=== PATIENT | female | born 1950 | race Caucasian/White ===

== ENCOUNTER → 2016-05-29 | Outpatient (REF) | payer MEDICARE, MEDICAID ==
[~2016-05-29] MED LIST: /ADVA50050 INH; /ESOM40CA PO; /PARO37TCR PO; /SUCR1TA OR; ACTI300C OR; ALBU83IN IN; ALBUTEROL INHALER INH; AMIT25TA PO; AMIT50TA2 PO; BUSP15TA PO; LASI20TA PO; LASI40TA PO; LORA1TAB PO; METF850T PO; METO10TA2 OR; QUESTRAN PO; RAMI25CA PO; RAMI5CA PO; SING10TA31 PO; TRAM50TA2 PO; [UNRECOGNIZED DRUG - CODE] PO
== END ==
LOC: M SMT 17:21
PROVIDERS: ATTEND Nurse Practitioner Family
DX: N39.41 Urge incontinence (principal)
CPT/HCPCS: 51798; 81001; 87086; G0463

== ENCOUNTER 2016-09-17 22:03 | Emergency (ER) | payer MEDICARE, MEDICAID ==
[~2016-09-17] VITALS: Ht 162.6 cm; Wt 113.4 kg
[2016-09-17] MEDS ORDERED: BISO10TA6 PO (22:21)
[2016-09-17] MEDS ORDERED: AMIT50TA PO (22:21)
[2016-09-17] MEDS ORDERED: ALL10TAB27 PO (22:21)
[2016-09-17] MEDS ORDERED: ASPI81TA85 PO (22:21)
[2016-09-17] MEDS ORDERED: RANI1TAB6 PO (22:21)
[2016-09-17] MEDS ORDERED: KETOROLAC 30 MG/ML VIAL (J1885) IV ONE (23:30)
[2016-09-17 23:38] LABS: BASO % 0.4 % (0.0-1.0); EOS # 0.1 K/mm3 (0.0-0.50); EOS % 1.6 % (0.0-3.0); LARGE UNSTAINED CELL # 0.1 K/mm3 (0.0-0.4); LARGE UNSTAINED CELL % 1.3 % (0.0-4.0); LYMPH # 1.7 K/mm3 (1.5-4.5); LYMPH % 18.9 % (24.0-44.0); MEAN CORPUSCULAR HEMOGLOBIN 28.9 pg (27.0-33.0); MEAN CORPUSCULAR HGB CONC 32.5 g/dl (32.0-36.5); MONO # 0.3 K/mm3 (0.0-0.8); MONO % 3.9 % (0.0-5.0); NEUTROPHILS # 6.4 K/mm3 (1.8-7.7); NEUTROPHILS % 73.9 % (36.0-66.0); PLATELET COUNT, AUTOMATED 264 k/mm3 (150-450); RED CELL DISTRIBUTION WIDTH 13.7 % (11.5-14.5); WHITE BLOOD COUNT 8.6 K/mm3 (4.0-10.0)
[2016-09-17 23:43] VITALS: BP 135/91
[2016-09-17 23:44] LABS: ANION GAP 8 MEQ/L (8-16); BLOOD UREA NITROGEN 15 MG/DL (7-18); CALCIUM LEVEL 8.6 MG/DL (8.8-10.2); CARBON DIOXIDE LEVEL 29 MEQ/L (21-32); CHLORIDE LEVEL 104 MEQ/L (98-107); CREATININE FOR GFR 0.94 MG/DL (0.55-1.02); GLOMERULAR FILTRATION RATE > 60.0 (>45); GLUCOSE, FASTING 117 MG/DL (80-110); POTASSIUM SERUM 4.2 MEQ/L (3.5-5.1); SODIUM LEVEL 141 MEQ/L (136-145)
[2016-09-18] MEDS ORDERED: ISOVUE-370 76% 100ML VIAL (Q9967) As Ordered ONE (01:27)
[2016-09-18] MEDS ORDERED: MORPHINE 4 MG/ML 1ML SYRINGE IV ONE (01:30)
--- NOTE | 2016-09-18 02:50 | REPUSA ---
CLINICAL HISTORY: Dyspnea, exclude PE. TECHNIQUE: Multiple incremental axial, coronal and oblique images are obtained from the thoracic inle t to the upper abdomen. Intravenous contrast material was administered as per pulmonary embolism prot ocol. COMMENTS: Comparison is made to the prior exam on 09/19/2015. There is excellent opacification of pulmonary arterial system without evidence for pulmonary embolism . Aorta is of normal caliber without evidence for dissection or aneurysm. There is no evidence of pleural or parenchymal mass. Unchanged bilateral basilar atelectatic pulmonar y bands. There are no pleural effusions. There is no evidence of hilar or mediastinal lymphadenopathy . The heart remains mildly enlarged. Images of the upper abdomen demonstrate no evidence of adrenal mass. The bony structures are free of lytic or blastic lesions. Multilevel degenerative changes are seen in volving the visualized thoracolumbar spine. Scattered calcifications are seen involving the aorta and major branches compatible with atherosclero sis. Remote granulomatous disease. IMPRESSION: No evidence for pulmonary embolism. Cardiomegaly. Remote granulomatous disease. Thank you for your kind referral of this patient.
[2016-09-18] MEDS ORDERED: PERC5TAB6 PO (03:51)
[2016-09-18] MEDS ORDERED: PERCOCET 5MG/325MG TAB PO ONE (04:15)
--- NOTE | 2016-09-18 06:06 | ECGEPIP ---
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
--- NOTE | 2016-09-18 10:13 | REP ---
CHEST, SINGLE VIEW: There is no evidence of acute infiltrate. No pleural effusion is seen. The heart is normal in size. The mediastinal silhouette is unremarkable. The visualized osseous structures are intact. IMPRESSION: No acute pulmonary disease. Signed by Syed Driscoll MD 09/18/2016 04:06 P
== END 2016-09-18 04:26 | disposition home or self-care (01) ==
LOC: M ED 23:58
DX: R07.89 Other chest pain (principal)
CPT/HCPCS: 71020; 71275; 80048; 82550; 82553; 84484; 85025; 85379; 93005; 93041; 94760; 96374; 96375; 99285; J1885; Q9967

== ENCOUNTER 2017-01-13 14:59 | Emergency (ER) | payer MEDICARE, MEDICAID ==
[~2017-01-13] VITALS: Ht 162.6 cm; Wt 114.5 kg
[~2017-01-13 14:59] MED LIST changes: +ALL10TAB27 PO; +AMIT50TA PO; +ASPI81TA85 PO; +BISO10TA6 PO; -METF850T PO; +METF850T4 PO; +PERC5TAB12 PO; +RANI1TAB6 PO
[2017-01-13] MEDS ORDERED: NS 1,000 ML IV ONE (16:45)
[2017-01-13 17:51] VITALS: BP 124/62
[2017-01-13] MEDS ORDERED: CIPR-249 PO (18:05)
== END 2017-01-13 18:22 | disposition home or self-care (01) ==
LOC: M ED 14:59
DX: N39.0 Urinary tract infection, site not specified (principal)

== ENCOUNTER → 2017-03-11 | Outpatient (REF) | payer MEDICARE, MEDICAID ==
[~2017-03-11] MED LIST changes: +CIPR-249 PO
== END ==
LOC: M SMT 16:54
PROVIDERS: ATTEND Nurse Practitioner Women's Health
DX: R35.0 Frequency of micturition (principal)

== ENCOUNTER → 2017-04-08 | Outpatient (CLI) | payer MEDICARE, MEDICAID ==
[2017-04-08 15:34] LABS: BASO # 0.1 10^3/uL (0.0-0.2); BASO % 0.6 % (0.0-1.0); EOS # 0.2 10^3/uL (0.0-0.50); EOS % 2.3 % (0.0-3.0); IMMATURE GRANULOCYTE % 0.2 % (0-0); LYMPH # 1.9 10^3/uL (1.5-4.5); LYMPH % 22.4 % (24.0-44.0); MEAN CORPUSCULAR HEMOGLOBIN 29.1 pg (27.0-33.0); MEAN CORPUSCULAR HGB CONC 32.2 g/dl (32.0-36.5); MEAN CORPUSCULAR VOLUME 90.2 fl (80.0-96.0); MONO # 0.6 10^3/uL (0.0-0.8); MONO % 7.5 % (0.0-5.0); NEUTROPHILS # 5.7 10^3/uL (1.8-7.7); PLATELET COUNT, AUTOMATED 278 10^3/uL (150-450); RED CELL DISTRIBUTION WIDTH 13.6 % (11.5-14.5); WHITE BLOOD COUNT 8.6 10^3/uL (4.0-10.0)
[2017-04-08 15:45] LABS: CALCIUM LEVEL 9.2 MG/DL (8.8-10.2); CREATININE FOR GFR 0.99 MG/DL (0.55-1.02); GLOMERULAR FILTRATION RATE 59.4 (>45); POTASSIUM SERUM 4.8 MEQ/L (3.5-5.1)
== END ==
LOC: M SMT 11:54
PROVIDERS: ATTEND Internal Medicine Cardiovascular Disease
DX: R00.2 Palpitations (principal); R07.9 Chest pain, unspecified; I42.0 Dilated cardiomyopathy

== ENCOUNTER → 2017-05-31 | Outpatient (CLI) | payer MEDICARE, MEDICAID | LOC: M WHC 09:53 | DX: N63.11 Unspecified lump in the right breast, upper outer quadrant (principal) | CPT/HCPCS: 77067 ==

== ENCOUNTER → 2017-06-27 | Outpatient (CLI) | payer MEDICARE, MEDICAID | LOC: M RAD 10:07 | DX: R92.8 Other abnormal and inconclusive findings on diagnostic imaging of breast (principal) | CPT/HCPCS: 77065 ==

== ENCOUNTER → 2017-07-19 | Outpatient (CLI) | payer MEDICARE, MEDICAID ==
[~2017-07-19] MED LIST changes: -/ADVA50050 INH; -/ESOM40CA PO; -/PARO37TCR PO; -/SUCR1TA OR; -ACTI300C OR; -ALBU83IN IN; -ALBUTEROL INHALER INH; -ALL10TAB27 PO; -AMIT25TA PO; -AMIT50TA PO; -AMIT50TA2 PO; -ASPI81TA85 PO; -BISO10TA6 PO; -BUSP15TA PO; -CIPR-249 PO; -LASI20TA PO; -LASI40TA PO; +LIDOCAINE 1% MDV 20ML VIAL As Ordered; -LORA1TAB PO; -METF850T4 PO; -METO10TA2 OR; -PERC5TAB12 PO; -QUESTRAN PO; -RAMI25CA PO; -RAMI5CA PO; -RANI1TAB6 PO; -SING10TA31 PO; -TRAM50TA2 PO; -[UNRECOGNIZED DRUG - CODE] PO
== END ==
LOC: M RADPRO 12:44
DX: N63.10 Unspecified lump in the right breast, unspecified quadrant (principal); N60.11 Diffuse cystic mastopathy of right breast; R92.1 Mammographic calcification found on diagnostic imaging of breast; Z79.82 Long term (current) use of aspirin; Z79.899 Other long term (current) drug therapy
CPT/HCPCS: 19083

== ENCOUNTER → 2017-07-29 | Outpatient (CLI) | payer MEDICARE, MEDICAID | LOC: M RAD 10:29 | DX: J32.0 Chronic maxillary sinusitis (principal) | CPT/HCPCS: 70486 ==

== ENCOUNTER 2018-06-14 14:23 | Emergency (ER) | payer MEDICARE, MEDICAID ==
[~2018-06-14] VITALS: Ht 162.6 cm; Wt 114.5 kg
[~2018-06-14 14:23] MED LIST changes: +/ADVA50050 INH; +/ESOM40CA PO; +/PARO37TCR PO; +/SUCR1TA OR; +ACTI300C OR; +ALBU83IN IN; +ALBUTEROL INHALER INH; +ALL10TAB28 PO; +AMIT25TA PO; +AMIT50TA PO; +AMIT50TA2 PO; +ASPI81TA85 PO; +BISO10TA6 PO; +BUSP15TA PO; +CIPR-249 PO; +LASI20TA PO; +LASI40TA PO; -LIDOCAINE 1% MDV 20ML VIAL As Ordered; +LORA1TAB PO; +METF850T4 PO; +METO10TA2 OR; +PERC5TAB12 PO; +QUESTRAN PO; +RAMI1CAP24 PO; +RAMI25CA PO; +RANI1TAB6 PO; +SING10TA31 PO; +TRAM50TA2 PO; +[UNRECOGNIZED DRUG - CODE] PO
[2018-06-14] MEDS ORDERED: VENTAER PO (14:43)
[2018-06-14] MEDS ORDERED: BUSP15TA47 PO (14:43)
[2018-06-14] MEDS ORDERED: LEVO88TA3 PO (14:43)
[2018-06-14 15:10] LABS: BASO % 0.5 % (0.0-1.0); EOS # 0.1 10^3/uL (0.0-0.50); EOS % 0.8 % (0.0-3.0); HEMATOCRIT 36.2 % (36.0-47.0); HEMOGLOBIN 12.2 g/dl (12.0-15.5); LYMPH # 1.4 10^3/uL (1.5-4.5); LYMPH % 16.2 % (24.0-44.0); MEAN CORPUSCULAR HEMOGLOBIN 29.9 pg (27.0-33.0); MEAN CORPUSCULAR HGB CONC 33.7 g/dl (32.0-36.5); MEAN CORPUSCULAR VOLUME 88.7 fl (80.0-96.0); MONO # 0.6 10^3/uL (0.0-0.8); NEUTROPHILS # 6.4 10^3/uL (1.8-7.7); NEUTROPHILS % 75.1 % (36.0-66.0); PLATELET COUNT, AUTOMATED 258 10^3/uL (150-450); RED BLOOD COUNT 4.08 10^6/uL (4.00-5.40); WHITE BLOOD COUNT 8.6 10^3/uL (4.0-10.0)
--- NOTE | 2018-06-14 15:25 | REP ---
Clinical: Acute chest pain . Comparison: 09/17/2016 . Technique: PA and lateral. Findings: The mediastinum and cardiac silhouette are normal. The lung durán are clear and without acute consolidation, effusion, or pneumothorax. The skeletal structures are intact and normal. Impression: 1. No acute cardiopulmonary process. Electronically Signed by Arben Renee MD 06/14/2018 03:17 P
[2018-06-14 15:28] LABS: ALBUMIN 3.7 GM/DL (3.2-5.2); ALT/SGPT 18 U/L (12-78); BILIRUBIN,DIRECT 0.2 MG/DL (0.0-0.2); BILIRUBIN,TOTAL 0.6 MG/DL (0.2-1.0); BLOOD UREA NITROGEN 16 MG/DL (7-18); CALCIUM LEVEL 8.4 MG/DL (8.8-10.2); CARBON DIOXIDE LEVEL 25 MEQ/L (21-32); CHLORIDE LEVEL 106 MEQ/L (98-107); CPK CREATINE PHOSPHOKINASE 136 U/L (26-192); CREATININE FOR GFR 0.94 MG/DL (0.55-1.30); GLOMERULAR FILTRATION RATE > 60.0 (>39); GLUCOSE, FASTING 121 MG/DL (70-100); MB/CK RELATIVE INDEX 2.13 (< OR =4); POTASSIUM SERUM 4.1 MEQ/L (3.5-5.1); SODIUM LEVEL 140 MEQ/L (136-145); THYROID STIMULATING HORMONE 0.973 uIU/ML (0.358-3.740); TOTAL PROTEIN 6.9 GM/DL (6.4-8.2); TROPONIN I < 0.02 NG/ML (< 0.10)
[2018-06-14] MEDS ORDERED: NS 500 ML IV ONE (17:45)
--- NOTE | 2018-06-14 17:58 | REP ---
Clinical: Headache. Comparison: None . Findings: The ventricles, sulci, and cisterns are normal in position and appearance. Driscoll-white differentiation is maintained. No acute intracranial hemorrhage, mass/mass effect, pathology or trauma/injury. No evidence for acute infarction. No extra-axial fluid collection. Calvarium is intact. Paranasal sinuses and mastoid air cells are clear. Impression: Mild age-related changes. No evidence for acute intracranial pathology or trauma/injury. Electronically Signed by Arben Renee MD 06/14/2018 05:50 P
[2018-06-14 18:15] VITALS: BP 123/59
--- NOTE | 2018-06-15 07:24 | ECGEPIP ---
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
== END 2018-06-14 18:54 | disposition home or self-care (01) ==
LOC: M ED 14:23
DX: R53.83 Other fatigue (principal); R06.02 Shortness of breath; R51 Headache; I42.9 Cardiomyopathy, unspecified; Z79.899 Other long term (current) drug therapy; Z79.890 Hormone replacement therapy; Z79.82 Long term (current) use of aspirin

== ENCOUNTER → 2018-07-09 | Outpatient (REF) | payer MEDICARE, MEDICAID ==
[~2018-07-09] MED LIST changes: +BUSP15TA47 PO; +LEVO88TA3 PO; +VENTAER PO
[2018-07-09 15:07] LABS: INFLUENZA A AMPLIFICATION NEGATIVE (NEGATIVE); INFLUENZA B AMPLIFICATION NEGATIVE (NEGATIVE)
== END ==
LOC: M LAB REF 14:14
PROVIDERS: ATTEND Physician Assistant
DX: J11.1 Influenza due to unidentified influenza virus with other respiratory manifestations (principal)

== ENCOUNTER → 2019-01-28 | Outpatient (REF) | payer MEDICARE, MEDICAID ==
[~2019-01-28] MED LIST changes: -/ADVA50050 INH; -/ESOM40CA PO; -/SUCR1TA OR; +ADVA1AER2 INH; -ALL10TAB28 PO; +ALL10TAB29 PO; +BISO10TA10 PO; -BISO10TA6 PO; +NEXI1CAP3 PO; +RANI-356 PO; -RANI1TAB6 PO; +SUCR1TAB56 OR
[2019-01-28 19:48] LABS: APPEARANCE, URINE HAZY (CLEAR); BACTERIA, URINE AUTO NEGATIVE (NEGATIVE); BILIRUBIN, URINE AUTO NEGATIVE (NEGATIVE); BLOOD, URINE BLOOD NEGATIVE (NEGATIVE); COLOR, URINE AMBER (YELLOW); GLUCOSE, URINE (UA) AUTO NEGATIVE (NEGATIVE); KETONE, URINE AUTO NEGATIVE (NEGATIVE); LEUKOCYTE ESTERASE, URINE AUTO 1+ (NEGATIVE); MUCUS, URINE SMALL (NEGATIVE); NITRITE, URINE AUTO NEGATIVE (NEGATIVE); PROTEIN, URINE AUTO NEGATIVE (NEGATIVE); RBC, URINE AUTO 2 /HPF (0-3); SPECIFIC GRAVITY URINE AUTO 1.023 (1.002-1.035); SQUAMOUS EPITHELIAL CELL UR AU 3 /HPF (0-6); UROBILINOGEN, URINE AUTO 0.2 mg/dL (0.0-2.0); WBC, URINE AUTO 6 /HPF (0-3)
== END ==
LOC: M LAB REF 16:27
PROVIDERS: ATTEND Physician Assistant
DX: N39.0 Urinary tract infection, site not specified (principal)

== ENCOUNTER → 2019-08-27 | Outpatient (CLI) | payer MEDICARE, MEDICAID ==
[~2019-08-27] MED LIST changes: -BISO10TA10 PO; +BISO10TA14 PO; -RANI-356 PO; +RANI-397 PO
== END ==
LOC: M LABSMTC 13:47
PROVIDERS: ATTEND Family Medicine
DX: Z11.59 Encounter for screening for other viral diseases (principal); Z20.89 Contact with and (suspected) exposure to other communicable diseases

== ENCOUNTER → 2020-06-01 | Outpatient (REF) | payer MEDICARE, MEDICAID ==
[~2020-06-01] MED LIST changes: -ALL10TAB29 PO; -AMIT25TA PO; +AMIT25TA17 PO; +ASPI81TA26 PO; -ASPI81TA85 PO; +ASPI81TA86 PO; +CETI-24 PO; +DEXA6TAB PO; +FLON1SPR NARES; +LORA1TAB4 PO; +MONT10TA10 PO; +ROSU10TA6 PO; +SYNT75TA PO; +VENTAER INH
[2020-06-01 22:42] LABS: AMORPHOUS SEDIMENT SMALL (NEGATIVE); APPEARANCE, URINE CLOUDY (CLEAR); BACTERIA, URINE AUTO 1+ (NEGATIVE); BILIRUBIN, URINE AUTO NEGATIVE (NEGATIVE); BLOOD, URINE BLOOD NEGATIVE (NEGATIVE); COLOR, URINE AMBER (YELLOW); GLUCOSE, URINE (UA) AUTO NEGATIVE (NEGATIVE); KETONE, URINE AUTO NEGATIVE (NEGATIVE); LEUKOCYTE ESTERASE, URINE AUTO 1+ (NEGATIVE); MUCUS, URINE SMALL (NEGATIVE); NITRITE, URINE AUTO NEGATIVE (NEGATIVE); PROTEIN, URINE AUTO 1+ mg/dL (NEGATIVE); RBC, URINE AUTO 1 /HPF (0-3); SPECIFIC GRAVITY URINE AUTO 1.019 (1.002-1.035); SQUAMOUS EPITHELIAL CELL UR AU 16 /HPF (0-6); UROBILINOGEN, URINE AUTO 0.2 mg/dL (0.0-2.0); WBC, URINE AUTO 7 /HPF (0-3)
== END ==
LOC: M LAB 22:09
PROVIDERS: ATTEND Physician Assistant
DX: N39.0 Urinary tract infection, site not specified (principal)

== ENCOUNTER 2020-06-08 15:48 | Inpatient (IN) | payer MEDICARE, MEDICAID ==
[~2020-06-08] VITALS: Ht 162.6 cm; Wt 115.0 kg
[~2020-06-08 15:48] MED LIST changes: -ASPI81TA26 PO; -DEXA6TAB PO; -FLON1SPR NARES; -LORA1TAB4 PO; -MONT10TA10 PO; -ROSU10TA6 PO; -SYNT75TA PO; -VENTAER INH
[2020-06-08 16:31] LABS: BASO % 0.2 % (0.0-1.0); EOS # 0.1 10^3/uL (0.0-0.5); EOS % 0.8 % (0.0-3.0); HEMATOCRIT 34.5 % (36.0-47.0); HEMOGLOBIN 10.8 g/dl (12.0-15.5); LYMPH # 0.8 10^3/uL (1.5-5.0); LYMPH % 13.3 % (24.0-44.0); MEAN CORPUSCULAR HEMOGLOBIN 27.9 pg (27.0-33.0); MEAN CORPUSCULAR HGB CONC 31.3 g/dl (32.0-36.5); MEAN CORPUSCULAR VOLUME 89.1 fl (80.0-96.0); MONO # 0.5 10^3/uL (0.0-0.8); MONO % 7.9 % (0.0-5.0); NEUTROPHILS # 4.6 10^3/uL (1.5-8.5); NEUTROPHILS % 77.1 % (36.0-66.0); PLATELET COUNT, AUTOMATED 347 10^3/uL (150-450); RED BLOOD COUNT 3.87 10^6/uL (4.00-5.40); WHITE BLOOD COUNT 5.9 10^3/uL (4.0-10.0)
--- NOTE | 2020-06-08 16:33 | REP ---
INDICATION: DYSPNEA/COUGH. COMPARISON: 06/14/2018 a two view exam and the latest prior. TECHNIQUE: Portable FINDINGS: The technique utilized in obtaining the radiograph has magnified the cardiac silhouette and accentuated the interstitial markings. There is cardiomegaly accentuated by technique. Patchy bilateral lung field opacities are seen and representing a change from the prior exam. There is no evidence of gross pleural effusion. There is no significant change in appearance of the osseous structures. IMPRESSION: Cardiomegaly and lung field opacities as described above. Findings consistent with CHF. Certainly, pneumonia cannot be ruled out. <Electronically signed by Sae Gao > 06/08/20 [id number]
[2020-06-08 16:42] LABS: INR 1.09; PROTHROMBIN TIME 14.3 SECONDS (12.5-14.3)
[2020-06-08 16:45] LABS: D-DIMER QUANT 3846.04 ng/ml (<500)
[2020-06-08 17:02] LABS: ALBUMIN 2.5 GM/DL (3.2-5.2); ALT/SGPT 23 U/L (12-78); BILIRUBIN,DIRECT 0.2 MG/DL (0.0-0.2); BILIRUBIN,TOTAL 0.6 MG/DL (0.2-1.0); BLOOD UREA NITROGEN 17 MG/DL (7-18); CALCIUM LEVEL 8.5 MG/DL (8.8-10.2); CARBON DIOXIDE LEVEL 27 MEQ/L (21-32); CHLORIDE LEVEL 106 MEQ/L (98-107); CPK CREATINE PHOSPHOKINASE 188 U/L (26-192); CREATININE FOR GFR 0.89 MG/DL (0.55-1.30); FERRITIN 839 NG/ML (8-252); GLOMERULAR FILTRATION RATE > 60.0 (>39); GLUCOSE, FASTING 161 MG/DL (70-100); LDH LACTATE DEHYDROGENASE 252 U/L (84-246); MB/CK RELATIVE INDEX 1.06 (< OR =4); NT-PRO BNP 2099 PG/ML (<125); POTASSIUM SERUM 3.7 MEQ/L (3.5-5.1); SODIUM LEVEL 144 MEQ/L (136-145); THYROXINE (T4) 10.6 UG/DL (4.5-12.0); TOTAL PROTEIN 6.2 GM/DL (6.4-8.2); TROPONIN I < 0.02 NG/ML (< 0.10)
--- OUTSIDE RECORDS SUMMARY | 2020-06-08 17:11 | CCD | Continuity of Care Document ---
Author Author Debi DE OLIVEIRA M.D. Organization Unknown Address [address] [place] [id number] Phone [phone] Problems Active Problems Provider Date Type 2 diabetes mellitus Venancio Camejo M.D. Onset: 2005 Asthma without status asthmaticus Venancio Camejo M.D. Onse t: 07/31/2002 Myalgia & Myositis Unspecified Venancio Camejo M.D. Onset: 08/14/2001 Moderate recurrent major depression Venancio Camejo M.D. On set: 08/14/2004 Panic disorder without agoraphobia Venancio Camejo M.D. Ons et: 03/16/2005 Anxiety state Maulik Alvarenga D.O., TOYIN Onset: 07/11 Gastroesophageal reflux disease Venancio Camejo M.D. Onset: 07/22/2001 Hyperlipidemia Venancio Camejo M.D. Onset: 07/05/2005 Low back pain Onset: 07/22/2001 Osteoarthritis Onset: 07/22/2001 Osteoarthritis of knee Venancio Camejo M.D. Onset: 02/18/20 02 Urinary incontinence Shayna Edge,R.P.A.Hoda Onset: Allergic rhinitis Onset: 07/22/2001 Irritable bowel syndrome Venancio Camejo M.D. Onset: 2005 Sleep disorder Venancio Camejo M.D. Onset: 09/30/2007 Left heart failure Maulik Alvarenga D.O., TOYIN Onset: 05/14 Hypothyroidism Laine Pang RPA-C Onset: 2012 Depressive disorder Laine Pang RPA-C Onset: 2012 Benign essential hypertension Laine Pang RPA-C Ons et: 01/15/2013 Essential hypertension Ck De Oliveira M.D. Onset: 2014 Social History Type Date Description Comments Sex Unknown Tobacco Use Start: Unknown Never Smoked Cigarettes ETOH Use alcohol use: never used Tobacco Use Start: Unknown Patient has never smoked Exercise Type/Frequency Does not exercise Allergies, Adverse Reactions, Alerts Active Allergies Reaction Severity Comments Date Codeine NT 08/24/2004 Claustrophobic 04/17/2005 Phenergan disoriented 08/24/2005 Demerol Local Reaction 07/11/2006 Medications Active Medications SIG Qnty Indications Ordering Provide r Date Zithromax Z-Mike 250mg Tablets 2 tab by mouth today and then 1 tab by mouth daily for 4 days 1pack Ck De Oliveira M.D. 04/28/2020 Triamcinolone Acetonide 0.1% Cream Apply Locally To Rash Twice A Day 30units Ck De Oliveira M .D. 12/29/2019 Rosuvastatin Calcium 10mg Tablets 1 by mouth every day 90tabs Ck De Oliveira M.D. 07/01/19 20 Nasonex 50mcg/Act Suspension 2 spray each nostril daily 17gm Ck De Oliveira M.D. 11/13/19 19 Montelukast Sodium 10mg Tablets take one tablet by mouth every day 90tabs Ck De Oliveira M.D . 08/19/2018 Levothyroxine Sodium 75mcg Tablets 1 by mouth every day 90tabs Ck De Oliveira M.D. 08/01/19 19 Ventolin HFA 108(90Base) mcg/Act A erosol ii puffs every 4-6 hours as needed 8gm Sharon De Oliveira M.D. 10/31/2016 Lorazepam 1mg Tablets take one tablet by mouth three times a day as needed for anxiety [id number] 30tabs Ck De Oliveira M.D. 09/22/2015 Cetirizine HCL 10mg Tablets 1 by mouth every day 90tabs Ck De Oliveira M.D. 06/14/19 16 Aspirin 81mg Tablets 1 by mouth every day OTC Ck De Oliveira M.D. 06/02/2014 Metformin HCL 850mg Tablets Take One Tablet By Mouth Every Day 30tabs Ck De Oliveira M.D . 02/04/2013 Buspirone HCL 15mg Tablets take one tablet by mouth twice a day 180tabs Ck De Oliveira M.D. Amitriptyline HCL 50mg Tablets Take One Tablet By Mouth AT Bedtime 30tabs Ck De Oliveira M. D. 05/30/2010 Albuterol Sulfate (2 .5mg/3ML) 0.083% Nebulizer 1 vial via nebulizer every 6 hours as needed 1box J44 .9 Ck De Oliveira M.D. J45.909 Bisoprolol Fumarate 10mg Tablets 1 by mouth qd Unknown Ramipril 5mg Capsules 1 by mouth every day [facility] Cardiology 0 Medications Administered in Office Medication SIG Qnty Indications Ordering Provider Date Injection (SC)/(Im) Injection Laine Pang RPA-C 02/04/2013 Injection Subcutaneous Or Intramuscular Injection Maulik Alvarenga D.O., [facility] 05/28/2007 Injection Subcutaneous Or Intramuscular Injection Venancio Camejo M.D. 2006 Injection Subcutaneous Or Intramuscular Injection Venancio Camejo M.D. 2006 Injection Subcutaneous Or Intramuscular Injection Venancio Camejo M.D. 2006 Injection Subcutaneous Or Intramuscular Injection Zachary Morgan RPA 08/13 Injection Subcutaneous Or Intramuscular Injection Venancio Camejo M.D. 2006 Injection Subcutaneous Or Intramuscular Injection Venancio Camejo M.D. 2006 Injection Subcutaneous Or Intramuscular Injection Venancio Camejo M.D. 2005 Injection (SC)/(Im) Injection Zachary Morgan RPA 08/24/2005 Injection Subcutaneous Or Intramuscular Injection Zachary Morgan RPA 08/24 Injection (SC)/(Im) Injection Sade Cedillo [facility] 10/10/2004 Injection (SC)/(Im) Injection Wendi Aguilar MD 01/17/2000 Immunizations CPT Code Status Date Vaccine Lot # [id number] Given 03/02/2019 Influenza Virus Vaccine, Quadrivalent, Slit Virus, Im Use 3Y & Up [id number] 84707 Given 03/04/2018 Influenza Virus Vaccine, Quadrivalent, Slit Virus, Im Use 3Y & Up [id number] 75735 Given 02/05/2017 Influenza Virus Vaccine, Quadrivalent, Slit Virus, Im Use 3Y & Up [id number] 32904 Given 04/13/2016 Influenza Virus Vaccine, Quadrivalent, Slit Virus, Im Use 3Y & Up [id number] 78231 Given 03/14/2015 Influenza Vaccin e (Fluzone) 3Yrs Of Age Or Older Medicare Plans [id number] 02565 Given 02/04/2013 Influenza Virus Vac. Split Virus Individuals 3 Years And Above [id number] 42845 Given 02/12/2012 Influenza Virus Vac. Split Virus Individuals 3 Years And Above [id number] 60994 Given 02/15/2011 Influenza Virus Vac. Split Virus Individuals 3 Years And Above [id number] 45583 Given 03/15/2010 Pneumococcal Immunization [id number] 90047 Given 02/08/2010 Influenza Virus Vac. Split Virus Individuals 3 Years And Above [id number] 14959 Given 04/13/2008 Influenza Virus Vac. Split Virus Individuals 3 Years And Above [id number] 64662 Given 05/28/2007 Influenza Virus Vac. Split Virus Individuals 3 Years And Above [id number] 53058 Given 03/28/2006 Influenza Virus Vac. Split Virus Individuals 3 Years And Above 16408 Given 04/17/2005 Pneumococcal Immunization 41527 Given 03/16/2005 Influenza Virus Vac. Split Virus Individuals 3 Years And Above Vital Signs Date Vital Result Comment 04/28/2020 2:58pm BP Systolic 110 mmHg BP Diastolic 66 mmHg Body Temperature 96.6 F Heart Rate 76 /min Respiratory Rate 14 /min Height 62 inches 5'2" Weight 262.00 lb [place] Body Weight 110 lb BMI (Body Mass Index) 47.9 kg/m2 O2 % BldC Oximetry 98 % 12/29/2019 10:51am BP Systolic 102 mmHg BP Diastolic 54 mmHg Body Temperature 97.8 F Heart Rate 78 /min Respiratory Rate 14 /min Height 62 inches 5'2" Weight 260.00 lb [place] Body Weight 110 lb BMI (Body Mass Index) 47.5 kg/m2 O2 % BldC Oximetry 97 % Results Test Acquired Date Facility Test Result H/L Range Note CMP 04/28/2020 [facility] Glu 177 mg/dL High 70 - 110 1 BUN 16 mg/dL 8 - 23 Creat 0.9 mg/dL 0.5 - 1.0 BUN/Creatinine Ratio 18.2 CALC Na 137 mmol/L 136 - 145 K 4.7 mmol/L 3.5 - 5.1 CL 101.4 mmol/L 98.0 - 107.0 Co2 27.2 mmol/L 22.0 - 29.0 CA 9.1 mg/dL 8.6 - 10.2 TP 6.4 g/dL Low 6.6 - 8.7 Alb 4.0 g/dL 3.4 - 4.8 A/G Ratio 1.7 CALC Globulin 2.3 CALC Alp 82.2 U/L 35 - 129 Alt (SGPT) 8 U/L 0 - 41 Ast (Sgot) 12 U/L 0 - 40 Tbili 0.29 mg/dL 0.0 - 1.2 Osmolality-Calculated 279.8 CALC Anion Gap 13 mmol/L eGFR 74 # Calc 2 eGFR Non-Afr. [place]ian 64 # Calc 3 Lipid Panel 04/28/2020 [facility] Chol 133 mg/dL 0 - 200 Trig 104 mg/dL 40 - 200 HDL 50 mg/dL 45 - 65 LDL_C 62 Calc Low 75 - 129 Cho/HDL Ratio 2.7 CALC Laboratory test finding 04/28/2020 [facility] Hemoglobin A1c 6.7 % High 4.40 - 6.10 TSH 3.217 ulU/mL 0.60 - 4.8 Metabolic Panel (14), Comprehensive 12/29/2019 [facility] [place] Glucose 141 mg/dL High 65-99 BUN 15 mg/dL 8-27 Creatinine 0.94 mg/dL 0.57-1.00 eGFR If NonAfricn Am 61 mL/min/1.73 >59 eGFR If Africn Am 71 mL/min/1.73 >59 BUN/Creatinine Ratio 16 12-28 Sodium 139 mmol/L 134-144 Potassium 4.8 mmol/L 3.5-5.2 Chloride 102 mmol/L 96-106 Carbon Dioxide, Total 20 mmol/L 20-29 Calcium 9.4 mg/dL 8.7-10.3 Protein, Total 6.7 g/dL 6.0-8.5 Albumin 4.0 g/dL 3.7-4.7 Globulin, Total 2.7 g/dL 1.5-4.5 A/G Ratio 1.5 1.2-2.2 Bilirubin, Total 0.4 mg/dL 0.0-1.2 Alkaline Phosphatase 79 IU/L 39-117 Ast (Sgot) 16 IU/L 0-40 Alt (SGPT) 11 IU/L 0-32 Lipid Panel 12/29/2019 [facility] [place] Cholesterol, Total 164 mg/dL 100-199 Triglycerides 96 mg/dL 0-149 HDL Cholesterol 43 mg/dL >39 VLDL Cholesterol Tl 19 mg/dL 5-40 LDL Cholesterol Calc 102 mg/dL High 0-99 Comment: TNP Laboratory test finding 12/29/2019 [facility] TSH 3.775 ulU/mL 0.60 - 4.8 Microalb/Creat Ratio 12/29/2019 [facility] Alb 10 mg/L 1 - 30 Creatinine, Urine 100 mg/dL 10 - 300 A/C Ratio <30 mg/g % Laboratory test finding 12/29/2019 [facility] Hemoglobin A1c 6.8 % High 4.40 - 6.10 4 CBC 12/29/2019 [facility] WBC 6.5 10E3/uL 4.1 - 10.9 RBC 4.12 10E6/uL Low 4.20 - 6.30 HGB 12.2 g/dL 12.0 - 18.0 HCT 35.9 % Low 37.0 - 51.0 MCV 87.1 fL 80.0 - 97.0 MCH 29.6 pg 26.0 - 32.0 MCHC 34.0 g/dL 31.0 - 36.0 PLT 240 10E3/uL 140 - 440 RDW-CV 14.3 % 11.5 - 14.5 Lym% 17.1 % 10.0 - 58.5 Neut% 77.2 % 37.0 - 92.0 MXD% 5.7 % 0.1 - 24.0 Lym# 1.1 10E3/uL 0.6 - 4.1 Neut# 5.0 % 2.0 - 7.8 MXD# 0.4 10E3/uL 0.0 - 1.8 MPV 9.9 fL 9.0 - 13.0 1 CHRONIC KIDNEY DISEASE STAGI NG PER NKF: MALE GFR INTERPRETATION: 20-49 YRS: >60 mL/min Normal 50-59 YRS: >56 mL/min Normal 60-69 YRS: >49 mL/min Normal 70-79 YRS: >42 mL/min Normal 80 and above >35 mL/min Normal FEMALE GRF INTERPRETATION: 20-39 YRS: >60 mL/min Normal 40-49 YRS: >58 mL/min Normal 50-59 YRS: >51 mL/min Normal 60-69 YRS: >45 mL/min Normal 70-79 YRS: >39 mL/min Normal 80 and above >32 mL/min NormalCLASSIFICATION CHOLESTEROL FOR ADULTS CHILDREN/ADOLESCENTS* DESIRABLE: <200 MG/DL <170 MG/DL BORDER-LINE HIGH RISK: 200-239 MG/DL 170-199 MG/DL HIGH RISK: >240 MG/DL >200 MG/DL CLASS. FOR PRIMARY LDL CHOL PREVENTION: LDL CHOL-CHILD/ADOLESCENTS* DESIRABLE: <130 MG/DL <110 MG/DL BORDERLINE-HIGH RISK: 130-159 MG/DL 110-129 MG/DL HIGH RISK: >160 MG/DL >130 MG/DL *CHILDREN AND ADOLESCENTS REPRESENTS INDIVIDUALA AGED 2-19 YEARS EXCLUSIVE. 2 CKD-EPI 3 CKD-EPI 4 NORMAL RANGES Age WBC RBC HGB HCT MCV PLT Adult M 4.1-10.9 4.20-6.30 12.0-18.0 37.0-51.0 80-97 140-440 Adult F 4.1-10.9 4.04-5.48 12.0-18.0 37.0-51.0 80-97 140-440 0 -1 Yr 5.0-20.0 3.9-5.9 15-18 MV: 44 MV: 91 MV: 277 2-9 Yr. 6.0-17.0 3.8-5.4 11-13 MV: 37 MV: 78 MV: 300 10 Yrs. 5.0-13.0 3.8-5.4 12-15 MV: 39 MV: 80 MV: 250 NOTE: * FOR ADULT BLACK MALES AND FEMALES, NORMAL WBC IS 2.9-7.7 K/ML * FOR ADULT BLACK MALES AND FEMALES, NORMAL RBC,HGB, AND HCT IS 5% LESS SOURCE FOR DATA: GABI DYN 1800 OPERATION MANUAL( AUTOMATED BLOOD COUNTS AND DIFF.) APPENDIX B-3 Procedures Description No Information Available Medical Devices Description No Information Available Encounters Type Date Location Provider Dx Diagnosis Office Visit 04/28/2020 2:30p [employer] [facility] Ck De Oliveira M.D . E03.9 Hypothyroidism, unspecified I10 Essential (primary) hyperten daniel E11.9 Type 2 diabetes mellitus wit hout complications I25.10 Athscl heart disease of issac ve coronary artery w/o ang pctrs E78.5 Hyperlipidemia, unspecified J45.909 Unspecified asthma, uncompli cated Office Visit 12/29/2019 10:40a [employer] [facility] Ck De Oliveira M.D . 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 Ck pang M.D. 04/28/2020 I10 Essential (primary) hypertension Ck De Oliveira M.D. 04/28/2020 E11.9 Type 2 diabetes mellitus without complications Ck De Oliveira M.D. 04/28/2020 I25.10 Atherosclerotic hear t disease of [place] coronary artery without angina pectoris Ck De Oliveira M.D. 04/28/2020 E78.5 Hyperlipidemia, unspecified [facility] Ck pang M.D. 04/28/2020 J45.909 Unspecified asthma, uncomplicate d Ck De Oliveira M.D. 12/29/2019 E03.9 Hypothyroidism, unspecified [facility] Ck pang M.D. 12/29/2019 I10 Essential (primary) hypertension Ck De Oliveira M.D. 12/29/2019 E11.9 Type 2 diabetes mellitus without complications Ck De Oliveira M.D. 12/29/2019 I25.10 Atherosclerotic hear t disease of [place] coronary artery without angina pectoris Ck De Oliveira M.D. 12/29/2019 E78.5 Hyperlipidemia, unspecified [facility] Ck pang M.D. 12/29/2019 J45.909 Unspecified asthma, uncomplicate d Ck De Oliveira M.D. Plan of Treatment Future Appointment(s):* 08/04/2020 1:30 pm - Ck De Oliveira M.D. at [facility] Functional Status Description No Information Available Mental Status Description No Information Available Referrals Refer to Reason for Referral Status Appt Date [facility] Orthopedics right knee pain- eval and rx Sent 02/29/2020 [address] [id number] [phone]
--- OUTSIDE RECORDS SUMMARY | 2020-06-08 17:11 | CCD | Continuity of Care Document ---
Author Author Debi DE OLIVEIRA M.D. Organization Unknown Address [address] [place] [id number] Phone [phone] Problems Active Problems Provider Date Type 2 diabetes mellitus Venancio Camejo M.D. Onset: 2005 Asthma without status asthmaticus Venancio Camejo M.D. Onse t: 07/31/2002 Myalgia & Myositis Unspecified Venancio Camejo M.D. Onset: 08/14/2001 Moderate recurrent major depression Venancio Camejo M.D. On set: 08/14/2004 Panic disorder without agoraphobia Venancio Camejo M.D. Ons et: 03/16/2005 Anxiety state Maulik Alavrenga D.O., TOYIN Onset: 07/11 Gastroesophageal reflux disease Venancio Camejo M.D. Onset: 07/22/2001 Hyperlipidemia Venancio Camejo M.D. Onset: 07/05/2005 Low back pain Onset: 07/22/2001 Osteoarthritis Onset: 07/22/2001 Osteoarthritis of knee Venancio Camejo M.D. Onset: 02/18/20 02 Urinary incontinence Shayna Edge,R.P.A.Hoda Onset: Allergic rhinitis Onset: 07/22/2001 Irritable bowel syndrome Venancio Camejo M.D. Onset: 2005 Sleep disorder Venancio Cmaejo M.D. Onset: 09/30/2007 Left heart failure Maulik [...] times a day as needed for anxiety [id number] 30tabs Ck De Oliveira M.D. 09/22/2015 Cetirizine [...] 5mg Capsules 1 by mouth every day [facility] Cardiology 0 Medications Administered in Office Medication SIG Qnty Indications Ordering Provider Date Injection (SC)/(Im) Injection Laine Pang RPA-C 02/04/2013 Injection Subcutaneous Or Intramuscular Injection Maulik Alvarenga D.O., [facility] 05/28/2007 Injection Subcutaneous Or Intramuscular Injection Venancio [...] RPA 08/24 Injection (SC)/(Im) Injection Sade Cedillo [facility] 10/10/2004 Injection (SC)/(Im) Injection Wendi Aguilar MD 01/17/2000 Immunizations CPT Code Status Date Vaccine Lot # [id number] Given 03/02/2019 Influenza Virus Vaccine, Quadrivalent, Slit Virus, Im Use 3Y & Up [id number] 55976 Given 03/04/2018 Influenza Virus Vaccine, Quadrivalent, Slit Virus, Im Use 3Y & Up [id number] 11411 Given 02/05/2017 Influenza Virus Vaccine, Quadrivalent, Slit Virus, Im Use 3Y & Up [id number] 82672 Given 04/13/2016 Influenza Virus Vaccine, Quadrivalent, Slit Virus, Im Use 3Y & Up [id number] 72185 Given 03/14/2015 Influenza Vaccin e (Fluzone) 3Yrs Of Age Or Older Medicare Plans [id number] 93272 Given 02/04/2013 Influenza Virus Vac. Split Virus Individuals 3 Years And Above [id number] 43266 Given 02/12/2012 Influenza Virus Vac. Split Virus Individuals 3 Years And Above [id number] 76257 Given 02/15/2011 Influenza Virus Vac. Split Virus Individuals 3 Years And Above [id number] 29444 Given 03/15/2010 Pneumococcal Immunization [id number] 80518 Given 02/08/2010 Influenza Virus Vac. Split Virus Individuals 3 Years And Above [id number] 66165 Given 04/13/2008 Influenza Virus Vac. Split Virus Individuals 3 Years And Above [id number] 66627 Given 05/28/2007 Influenza Virus Vac. Split Virus Individuals 3 Years And Above 11778 69823 Given 03/28/2006 Influenza Virus Vac. Split Virus Individuals 3 Years And Above 63987 Given 04/17/2005 Pneumococcal Immunization 57190 Given 03/16/2005 Influenza Virus Vac. Split Virus Individuals 3 Years And Above Vital Signs Date Vital Result Comment 04/28/2020 2:58pm BP Systolic 110 mmHg BP Diastolic 66 mmHg Body Temperature 96.6 F Heart Rate 76 /min Respiratory Rate 14 /min Height 62 inches 5'2" Weight 262.00 lb [place] Body Weight 110 lb BMI (Body Mass Index) 47.9 kg/m2 O2 % BldC Oximetry 98 % 12/29/2019 10:51am BP Systolic 102 mmHg BP Diastolic 54 mmHg Body Temperature 97.8 F Heart Rate 78 /min Respiratory Rate 14 /min Height 62 inches 5'2" Weight 260.00 lb [place] Body Weight 110 lb BMI (Body Mass [...] eGFR 74 # Calc 2 eGFR Non-Afr. [place] 64 # Calc 3 Lipid Panel 04/28/2020 [...] Provider Dx Diagnosis Office Visit 04/28/2020 2:30p [facility] Ck De Oliveira M.D . 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 04/28/2020 I10 Essential (primary) hypertension Ck De Oliveira M.D. 04/28/2020 E11.9 Type 2 diabetes mellitus without complications Ck De Oliveira M.D. 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 04/28/2020 E78.5 Hyperlipidemia, unspecified [facility] Ck pang M.D. 04/28/2020 J45.909 Unspecified asthma, uncomplicate d Ck De Oliveira M.D. 12/29/2019 E03.9 Hypothyroidism, unspecified [facility] Ck pang M.D. 12/29/2019 I10 Essential (primary) hypertension Ck De Oliveira M.D. 12/29/2019 E11.9 Type 2 diabetes mellitus without complications Ck De Oliveira M.D. 12/29/2019 I25.10 Atherosclerotic hear t disease of [place] coronary artery without angina pectoris Ck De Oliveira M.D. 12/29/2019 E78.5 Hyperlipidemia, unspecified [facility] Ck pang M.D. 12/29/2019 J45.909 Unspecified asthma, uncomplicate d Ck De Oliveira M.D. Plan of Treatment Future Appointment(s):* 08/04/2020 1:30 pm - Ck De Oliveira M.D. at [facility] Functional Status Description No Information Available Mental Status Description No Information Available Referrals Refer to Reason for Referral Status Appt Date [facility] Orthopedics right knee pain- eval and rx Sent 02/29/2020 [address] [id number] [phone]
--- OUTSIDE RECORDS SUMMARY | 2020-06-08 17:11 | CCD | Continuity of Care Document ---
Author Author Debi DE OLIVEIRA M.D. Organization Unknown Address [address] [place] [address] Phone [phone] Problems Active Problems Provider Date Type 2 [...] times a day as needed for anxiety [id number] 30tabs Ck De Oliveira M.D. 09/22/2015 Cetirizine [...] tablet by mouth twice a day 180tabs kC De Oliveira M.D. Amitriptyline HCL 50mg Tablets Take One Tablet By Mouth AT Bedtime 30tabs Ck De Oliveira M. D. 05/30/2010 Albuterol Sulfate (2 .5mg/3ML) 0.083% Nebulizer 1 vial via nebulizer every 6 hours as needed 1box J44 .9 Ck De Oliveira M.D. J45.909 Bisoprolol Fumarate 10mg Tablets 1 by mouth qd Unknown Ramipril 5mg Capsules 1 by mouth every day [facility] Cardiology 0 Medications Administered in Office Medication SIG Qnty Indications Ordering Provider Date Injection (SC)/(Im) Injection Laine Pang RPA-C 02/04/2013 Injection Subcutaneous Or Intramuscular Injection Maulik Alvarenga D.O., [facility] 05/28/2007 Injection Subcutaneous Or Intramuscular Injection Venancio [...] RPA 08/24 Injection (SC)/(Im) Injection Sade Cedillo [facility] 10/10/2004 Injection (SC)/(Im) Injection Wendi Aguilar MD 01/17/2000 Immunizations CPT Code Status Date Vaccine Lot # 67519 Given 03/02/2019 Influenza Virus Vaccine, Quadrivalent, Slit Virus, Im Use 3Y & Up [id number] 91521 Given 03/04/2018 Influenza Virus Vaccine, Quadrivalent, Slit Virus, Im Use 3Y & Up [id number] 77682 Given 02/05/2017 Influenza Virus Vaccine, Quadrivalent, Slit Virus, Im Use 3Y & Up [id number] 83739 Given 04/13/2016 Influenza Virus Vaccine, Quadrivalent, Slit Virus, Im Use 3Y & Up [id number] 20320 Given 03/14/2015 Influenza Vaccin e (Fluzone) 3Yrs Of Age Or Older Medicare Plans [id number] 90078 Given 02/04/2013 Influenza Virus Vac. Split Virus Individuals 3 Years And Above [id number] 29152 Given 02/12/2012 Influenza Virus Vac. Split Virus Individuals 3 Years And Above [id number] 57563 Given 02/15/2011 Influenza Virus Vac. Split Virus Individuals 3 Years And Above [id number] 07157 Given 03/15/2010 Pneumococcal Immunization [id number] 66008 Given 02/08/2010 Influenza Virus Vac. Split Virus Individuals 3 Years And Above [id number] 30843 Given 04/13/2008 Influenza Virus Vac. Split Virus Individuals 3 Years And Above [id number] 58081 Given 05/28/2007 Influenza Virus Vac. Split Virus Individuals 3 Years And Above 70270 70728 Given 03/28/2006 Influenza Virus Vac. Split Virus Individuals 3 Years And Above 32606 Given 04/17/2005 Pneumococcal Immunization 75745 Given 03/16/2005 Influenza Virus Vac. Split Virus Individuals 3 Years And Above Vital Signs Date Vital Result Comment 04/28/2020 2:58pm BP Systolic 110 mmHg BP Diastolic 66 mmHg Body Temperature 96.6 F Heart Rate 76 /min Respiratory Rate 14 /min Height 62 inches 5'2" Weight 262.00 lb [place] Body Weight 110 lb BMI (Body Mass Index) 47.9 kg/m2 O2 % BldC Oximetry 98 % 12/29/2019 10:51am BP Systolic 102 mmHg BP Diastolic 54 mmHg Body Temperature 97.8 F Heart Rate 78 /min Respiratory Rate 14 /min Height 62 inches 5'2" Weight 260.00 lb [place] Body Weight 110 lb BMI (Body Mass [...] eGFR 74 # Calc 2 eGFR Non-Afr. Hungarian 64 # Calc 3 Lipid Panel 04/28/2020 [...] Provider Dx Diagnosis Office Visit 04/28/2020 2:30p [place] [facility] Ck De Oliveira M.D . E03.9 Hypothyroidism, unspecified I10 Essential (primary) hyperten daniel E11.9 Type 2 diabetes mellitus wit hout complications I25.10 Athscl heart disease of [place] coronary artery w/o ang pctrs E78.5 Hyperlipidemia, unspecified J45.909 Unspecified asthma, uncompli cated Office Visit 12/29/2019 10:40a [place] [facility] Ck De Oliveira M.D . E03.9 Hypothyroidism, unspecified I10 Essential (primary) hyperten daniel E11.9 Type 2 diabetes mellitus wit hout complications I25.10 Athscl heart disease of [place] coronary artery w/o ang pctrs E78.5 Hyperlipidemia, unspecified J45.909 Unspecified asthma, uncompli cated Assessments Date Code Description Provider 04/28/2020 E03.9 Hypothyroidism, unspecified [facility] Ck pang M.D. 04/28/2020 I10 Essential (primary) hypertension Ck De Oliveira M.D. 04/28/2020 E11.9 Type 2 diabetes mellitus without complications Ck De Oliveira M.D. 04/28/2020 I25.10 Atherosclerotic hear t disease of [place] coronary artery without angina pectoris Ck De Oliveira M.D. 04/28/2020 E78.5 Hyperlipidemia, unspecified [facility] Ck pang M.D. 04/28/2020 J45.909 Unspecified asthma, uncomplicate d Ck De Oliveira M.D. 12/29/2019 E03.9 Hypothyroidism, unspecified [facility] Ck pang M.D. 12/29/2019 I10 Essential (primary) hypertension Ck De Oliveira M.D. 12/29/2019 E11.9 Type 2 diabetes mellitus without complications Ck De Oliveira M.D. 12/29/2019 I25.10 Atherosclerotic hear t disease of [place] coronary artery without angina pectoris Ck De Oliveira M.D. 12/29/2019 E78.5 Hyperlipidemia, unspecified [facility] Ck pang M.D. 12/29/2019 J45.909 Unspecified asthma, uncomplicate d Ck De Oliveira M.D. Plan of Treatment Future Appointment(s):* 08/04/2020 1:30 pm - Ck De Oliveira M.D. at [facility] Functional Status Description No Information Available Mental Status Description No Information Available Referrals Refer to Reason for Referral Status Appt Date [facility] Orthopedics right knee pain- eval and rx Sent 02/29/2020 [address] [id number] [phone]
--- OUTSIDE RECORDS SUMMARY | 2020-06-08 17:12 | CCD | Continuity of Care Document ---
Author Author Debi DE OLIVEIRA M.D. Organization Unknown Address [address] [place] [address] Phone [phone] Problems Active Problems Provider Date Type 2 [...] take one tablet by mouth every day 30tabs Ck De Oliveira M.D . 08/19/2018 Levothyroxine Sodium 75mcg Tablets 1 by mouth every day 90tabs kC De Oliveira M.D. 08/01/19 19 Ventolin HFA 108(90Base) mcg/Act A erosol ii puffs every 4-6 hours as needed 8gm Sharon De Oliveira M.D. 10/31/2016 Lorazepam 1mg Tablets take one tablet by mouth three times a day as needed for anxiety [id number] 30tabs Ck De Oliveira M.D. 09/22/2015 Cetirizine HCL 10mg Tablets 1 by mouth every day 90tabs Ck De Oliveira M.D. 06/14/19 16 Aspirin 81mg Tablets 1 by mouth every day O[facility] Ck De Oliveira M.D. 06/02/2014 Metformin HCL 850mg Tablets Take One Tablet By Mouth Every Day 30tabs Ck De Oliveira M.D . 02/04/2013 Buspirone HCL 15mg Tablets Take One Tablet By Mouth Twice A Day 60tabs Ck De Oliveira M.D. Amitriptyline HCL 50mg [...] day [facility] Cardiology 0 Medications Administered in Office Medication SIG Qnty Indications Ordering Provider Date Injection (SC)/(Im) Injection Laine Pang RPA-C 02/04/2013 Injection Subcutaneous Or Intramuscular Injection Maulik Alvarenga D.O., [facility] 05/28/2007 Injection Subcutaneous Or Intramuscular Injection Venancio [...] RPA 08/24 Injection (SC)/(Im) Injection Sade Cedillo [facility] 10/10/2004 Injection (SC)/(Im) Injection Wendi Aguilar MD 01/17/2000 Immunizations CPT Code Status Date Vaccine Lot # 60541 Given 03/02/2019 Influenza Virus Vaccine, Quadrivalent, Slit Virus, Im Use 3Y & Up [id number] 37766 Given 03/04/2018 Influenza Virus Vaccine, Quadrivalent, Slit Virus, Im Use 3Y & Up [id number] 32838 Given 02/05/2017 Influenza Virus Vaccine, Quadrivalent, Slit Virus, Im Use 3Y & Up [id number] 14826 Given 04/13/2016 Influenza Virus Vaccine, Quadrivalent, Slit Virus, Im Use 3Y & Up [id number] 47605 Given 03/14/2015 Influenza Vaccin e (Fluzone) 3Yrs Of Age Or Older Medicare Plans [id number] 60517 Given 02/04/2013 Influenza Virus Vac. Split Virus Individuals 3 Years And Above [id number] 66529 Given 02/12/2012 Influenza Virus Vac. Split Virus Individuals 3 Years And Above [id number] 45174 Given 02/15/2011 Influenza Virus Vac. Split Virus Individuals 3 Years And Above [id number] 56310 Given 03/15/2010 Pneumococcal Immunization 08 [id number] 93679 Given 02/08/2010 Influenza Virus Vac. Split Virus Individuals 3 Years And Above [id number] 37140 Given 04/13/2008 Influenza Virus Vac. Split Virus Individuals 3 Years And Above [id number] 60674 Given 05/28/2007 Influenza Virus Vac. Split Virus Individuals 3 Years And Above [id number] 77370 Given 03/28/2006 Influenza Virus Vac. Split Virus Individuals 3 Years And Above 72140 Given 04/17/2005 Pneumococcal Immunization 65360 Given 03/16/2005 Influenza Virus Vac. Split Virus Individuals 3 Years And Above Vital Signs Date Vital Result Comment 12/29/2019 10:51am BP Systolic 102 mmHg BP Diastolic 54 mmHg Body Temperature 97.8 F Heart Rate 78 /min Respiratory Rate 14 /min Height 62 inches 5'2" Weight 260.00 lb [place] Body Weight 110 lb BMI (Body Mass Index) 47.5 kg/m2 O2 % BldC Oximetry 97 % 10/27/2019 10:31am BP Systolic 128 mmHg BP Diastolic 70 mmHg Body Temperature 97.0 F Heart Rate 90 /min Respiratory Rate 18 /min Height 62 inches 5'2" Weight 257.00 lb [place] Body Weight 110 lb BMI (Body Mass Index) 47.0 kg/m2 O2 % BldC Oximetry 95 % Results Test Acquired Date Facility Test Result H/L Range Note Metabolic Panel (14), Comprehensive 12/29/2019 [facility] orp [...] A1c 6.8 % High 4.40 - 6.10 1 CBC 12/29/2019 [facility] WBC 6.5 10E3/uL 4.1 [...] MPV 9.9 fL 9.0 - 13.0 1 NORMAL RANGES Age WBC RBC HGB HCT [...] Provider Dx Diagnosis Office Visit 04/28/2020 2:30p [place] [facility] Ck De Oliveira M.D . E03.9 Hypothyroidism, unspecified I10 Essential (primary) hyperten daniel E11.9 Type 2 diabetes mellitus wit hout complications I25.10 Athscl heart disease of [place] coronary artery w/o ang pctrs E78.5 Hyperlipidemia, unspecified J45.909 Unspecified asthma, uncompli cated Office Visit 12/29/2019 10:40a [place] [facility] Ck De Oliveira M.D . E03.9 Hypothyroidism, unspecified I10 Essential (primary) hyperten daniel E11.9 Type 2 diabetes mellitus wit hout complications I25.10 Athscl heart disease of [place] coronary artery w/o ang pctrs E78.5 Hyperlipidemia, unspecified J45.909 Unspecified asthma, uncompli cated Assessments Date Code Description Provider 04/28/2020 E03.9 Hypothyroidism, unspecified [facility] Ck pang M.D. 04/28/2020 I10 Essential (primary) hypertension Ck De Oliveira M.D. 04/28/2020 E11.9 Type 2 diabetes mellitus without complications Ck De Oliveira M.D. 04/28/2020 I25.10 Atherosclerotic hear t disease of [place] coronary artery without angina pectoris Ck De Oliveira M.D. 04/28/2020 E78.5 Hyperlipidemia, unspecified [facility] Ck pang M.D. 04/28/2020 J45.909 Unspecified asthma, uncomplicate d Ck De Oliveira M.D. 12/29/2019 E03.9 Hypothyroidism, unspecified [facility] Ck pang M.D. 12/29/2019 I10 Essential (primary) hypertension Ck De Oliveira M.D. 12/29/2019 E11.9 Type 2 diabetes mellitus without complications Ck De Oliveira M.D. 12/29/2019 I25.10 Atherosclerotic hear t disease of [place] coronary artery without angina pectoris Ck De Oliveira M.D. 12/29/2019 E78.5 Hyperlipidemia, unspecified [facility] Ck pang M.D. 12/29/2019 J45.909 Unspecified asthma, uncomplicate d Ck De Oliveira M.D. Plan of Treatment No Information Available Functional Status Description No Information Available Mental Status Description No Information Available Referrals Refer to Dr Reason for Referral Status Appt Date [facility] Orthopedics right knee pain- eval and rx Sent 02/29/2020 [address] [place] [address] [phone]
--- OUTSIDE RECORDS SUMMARY | 2020-06-08 17:12 | CCD ---
Continuity of Care Document (CCD) Created on: 03/25/2020 Debi Naqvi External Reference #: [id number] : [id number] Sex: Female Author Author Debi RAMOS MD Organization Unknown Address [address] [place] [address] Phone [phone] Care Team Providers Care Continuous Miner Operator Name Role Phone Ck De Oliveira MD AUTM [phone] Problems Description No Information Available Social History Type Date Description Comments Sex Unknown Allergies, Adverse Reactions, Alerts Description No Information Available Medications Active Medications SIG Qnty Indications Ordering Provide r Date Darvocet N-100MG 1 q4-6 hours prn/pain 30units Elda Montero, [facility] 04/12/2006 Darvocet N-100MG 1 Q4 Hours prn/Pain 30units Elda Montero, [facility] 10/11/2005 Immunizations Description No Information Available Vital Signs Description No Information Available Results Description No Information Available Procedures Date Code Description Status 02/29/2020 71440 X-Ray Knee Complete W/Obliques & Tunnel And/Or Standing Views Completed 02/29/2020 87956 X-Ray Hip Unilateral With Pelvis 2-3 Views Completed Medical Devices Description No Information Available Encounters Description No Information Available Assessments Date Code Description Provider 02/29/2020 M16.11 Unilateral primary osteoarthriti s, right hip Og Ramos MD 02/29/2020 M17.11 Unilateral primary osteoarthriti s, right knee Og Ramos MD Plan of Treatment No Information Available Functional Status Description No Information Available Mental Status Description No Information Available Referrals Description No Information Available
--- OUTSIDE RECORDS SUMMARY | 2020-06-08 17:12 | CCD | Continuity of Care Document ---
Author Author Debi DE OLIVEIRA M.D. Organization Unknown Address [address] [place] [address] Phone [phone] Problems Active Problems Provider Date Type 2 diabetes mellitus Vennacio Camejo M.D. Onset: 2005 Asthma without status [...] times a day as needed for anxiety [id number] 30tabs Ck De Oliveira M.D. 09/22/2015 Cetirizine [...] 5mg Capsules 1 by mouth every day [facility] Cardiology 0 Medications Administered in Office Medication SIG Qnty Indications Ordering Provider Date Injection (SC)/(Im) Injection Laine Pang RPA-C 02/04/2013 Injection Subcutaneous Or Intramuscular Injection Maulik Alvarenga D.O., [facility] 05/28/2007 Injection Subcutaneous Or Intramuscular Injection Venancio [...] RPA 08/24 Injection (SC)/(Im) Injection Sade Cedillo [facility] 10/10/2004 Injection (SC)/(Im) Injection Wendi Aguilar MD 01/17/2000 Immunizations CPT Code Status Date Vaccine Lot # 96099 Given 03/02/2019 Influenza Virus Vaccine, Quadrivalent, Slit Virus, Im Use 3Y & Up [id number] 06190 Given 03/04/2018 Influenza Virus Vaccine, Quadrivalent, Slit Virus, Im Use 3Y & Up [id number] 92359 Given 02/05/2017 Influenza Virus Vaccine, Quadrivalent, Slit Virus, Im Use 3Y & Up [id number] 27484 Given 04/13/2016 Influenza Virus Vaccine, Quadrivalent, Slit Virus, Im Use 3Y & Up [id number] 18107 Given 03/14/2015 Influenza Vaccin e (Fluzone) 3Yrs Of Age Or Older Medicare Plans [id number] 04455 Given 02/04/2013 Influenza Virus Vac. Split Virus Individuals 3 Years And Above [id number] 46478 Given 02/12/2012 Influenza Virus Vac. Split Virus Individuals 3 Years And Above [id number] 94673 Given 02/15/2011 Influenza Virus Vac. Split Virus Individuals 3 Years And Above [id number] 77832 Given 03/15/2010 Pneumococcal Immunization 08 [id number] 15499 Given 02/08/2010 Influenza Virus Vac. Split Virus Individuals 3 Years And Above [id number] 23731 Given 04/13/2008 Influenza Virus Vac. Split Virus Individuals 3 Years And Above [id number] 19262 Given 05/28/2007 Influenza Virus Vac. Split Virus Individuals 3 Years And Above [id number] 89691 Given 03/28/2006 Influenza Virus Vac. Split Virus Individuals 3 Years And Above 77853 Given 04/17/2005 Pneumococcal Immunization 32292 Given 03/16/2005 Influenza Virus Vac. Split Virus Individuals 3 Years And Above Vital Signs Date Vital Result Comment 12/29/2019 10:51am BP Systolic 102 mmHg BP Diastolic 54 mmHg Body Temperature 97.8 F Heart Rate 78 /min Respiratory Rate 14 /min Height 62 inches 5'2" Weight 260.00 lb [place] Body Weight 110 lb BMI (Body Mass Index) 47.5 kg/m2 O2 % BldC Oximetry 97 % 10/27/2019 10:31am BP Systolic 128 mmHg BP Diastolic 70 mmHg Body Temperature 97.0 F Heart Rate 90 /min Respiratory Rate 18 /min Height 62 inches 5'2" Weight 257.00 lb [place] Body Weight 110 lb BMI (Body Mass Index) 47.0 kg/m2 O2 % BldC Oximetry 95 % Results Test Acquired Date Facility Test Result H/L Range Note Laboratory test finding 04/28/2020 [facility]house Hemoglobin A1c 6.7 % High 4.40 - 6.10 1 Metabolic Panel (14), Comprehensive 12/29/2019 [facility] orp [...] A1c 6.8 % High 4.40 - 6.10 2 CBC 12/29/2019 [facility] WBC 6.5 10E3/uL 4.1 [...] REPRESENTS INDIVIDUALA AGED 2-19 YEARS EXCLUSIVE. 2 NORMAL RANGES Age WBC RBC HGB HCT [...] HCT IS 5% LESS SOURCE FOR DATA: [employer] 1800 OPERATION MANUAL( AUTOMATED BLOOD COUNTS AND DIFF.) APPENDIX B-3 Procedures Description No Information Available Medical Devices Description No Information Available Encounters Type Date Location Provider Dx Diagnosis Office Visit 04/28/2020 2:30p [place] [facility] Ck De Oliveira M.D . E03.9 Hypothyroidism, unspecified I10 Essential (primary) hyperten daniel E11.9 Type 2 diabetes mellitus wit hout complications I25.10 Athscl heart disease of [place] coronary artery w/o ang pctrs E78.5 Hyperlipidemia, unspecified J45.909 Unspecified asthma, uncompli cated Office Visit 12/29/2019 10:40a [place] [facility] Ck De Oliveira M.D . E03.9 Hypothyroidism, unspecified I10 Essential (primary) hyperten daniel E11.9 Type 2 diabetes mellitus wit hout complications I25.10 Athscl heart disease of [place] coronary artery w/o ang pctrs E78.5 Hyperlipidemia, unspecified J45.909 Unspecified asthma, uncompli cated Assessments Date Code Description Provider 04/28/2020 E03.9 [facility], [facility]2020 I10 Essential (primary) hypertension Ck De Oliveira M.D. 04/28/2020 E11.9 Type 2 diabetes mellitus without complications Ck De Oliveira M.D. 04/28/2020 I25.10 Atherosclerotic hear t disease of [place] coronary artery without angina pectoris Ck De Oliveira M.D. 04/28/2020 E78.5 Hyperlipidemia, unspecified [facility] Ck pang M.D. 04/28/2020 J45.909 Unspecified asthma, uncomplicate d Ck De Oliveira M.D. 12/29/2019 E03.9 Hypothyroidism, unspecified Ck Quiroz M.D. 12/29/2019 I10 Essential (primary) hypertension Ck De Oliveira M.D. 12/29/2019 E11.9 Type 2 diabetes mellitus without complications Ck De Oliveira M.D. 12/29/2019 I25.10 Atherosclerotic hear t disease of [place] coronary artery without angina pectoris Ck De Oliveira M.D. 12/29/2019 E78.5 Hyperlipidemia, unspecified [facility] Ck pang M.D. 12/29/2019 J45.909 Unspecified asthma, uncomplicate d Ck De Oliveira M.D. Plan of Treatment Future Appointment(s):* 08/04/2020 1:30 pm - Ck De Oliveira M.D. at [facility] Functional Status Description No Information Available Mental Status Description No Information Available Referrals Refer to Reason for Referral Status Appt Date [facility] Orthopedics right knee pain- eval and rx Sent 02/29/2020 [address] [place] [address] [phone]
--- OUTSIDE RECORDS SUMMARY | 2020-06-08 17:12 | CCD | Continuity of Care Document ---
Author Author Debi DE OLIVEIRA M.D. Organization Unknown Address [address] [place] [id number] Phone [phone] Problems Active Problems Provider Date Type 2 [...] times a day as needed for anxiety [id number] 30tabs Ck De Oliveira M.D. 09/22/2015 Cetirizine [...] 5mg Capsules 1 by mouth every day [facility] Cardiology 0 Medications Administered in Office Medication SIG Qnty Indications Ordering Provider Date Injection (SC)/(Im) Injection Laine Pang RPA-C 02/04/2013 Injection Subcutaneous Or Intramuscular Injection Maulik Alvarenga D.O., [facility] 05/28/2007 Injection Subcutaneous Or Intramuscular Injection Venancio [...] RPA 08/24/2005 Injection Subcutaneous Or Intramuscular Injection Zacahry Morgan RPA 08/24 Injection (SC)/(Im) Injection Sade Cedillo [facility] 10/10/2004 Injection (SC)/(Im) Injection Wendi Aguilar MD 01/17/2000 Immunizations CPT Code Status Date Vaccine Lot # [id number] Given 03/02/2019 Influenza Virus Vaccine, Quadrivalent, Slit Virus, Im Use 3Y & Up [id number] 68578 Given 03/04/2018 Influenza Virus Vaccine, Quadrivalent, Slit Virus, Im Use 3Y & Up [id number] 16069 Given 02/05/2017 Influenza Virus Vaccine, Quadrivalent, Slit Virus, Im Use 3Y & Up [id number] 40906 Given 04/13/2016 Influenza Virus Vaccine, Quadrivalent, Slit Virus, Im Use 3Y & Up [id number] 09791 Given 03/14/2015 Influenza Vaccin e (Fluzone) 3Yrs Of Age Or Older Medicare Plans [id number] 99795 Given 02/04/2013 Influenza Virus Vac. Split Virus Individuals 3 Years And Above [id number] 75947 Given 02/12/2012 Influenza Virus Vac. Split Virus Individuals 3 Years And Above [id number] 37795 Given 02/15/2011 Influenza Virus Vac. Split Virus Individuals 3 Years And Above [id number] 00832 Given 03/15/2010 Pneumococcal Immunization [id number] 58715 Given 02/08/2010 Influenza Virus Vac. Split Virus Individuals 3 Years And Above [id number] 74341 Given 04/13/2008 Influenza Virus Vac. Split Virus Individuals 3 Years And Above [id number] 13744 Given 05/28/2007 Influenza Virus Vac. Split Virus Individuals 3 Years And Above [id number] 52541 Given 03/28/2006 Influenza Virus Vac. Split Virus Individuals 3 Years And Above 57897 Given 04/17/2005 Pneumococcal Immunization 17180 Given 03/16/2005 Influenza Virus Vac. Split Virus Individuals 3 Years And Above Vital Signs Date Vital Result Comment 04/28/2020 2:58pm BP Systolic 110 mmHg BP Diastolic 66 mmHg Body Temperature 96.6 F Heart Rate 76 /min Respiratory Rate 14 /min Height 62 inches 5'2" Weight 262.00 lb [place] Body Weight 110 lb BMI (Body Mass Index) 47.9 kg/m2 O2 % BldC Oximetry 98 % 12/29/2019 10:51am BP Systolic 102 mmHg BP Diastolic 54 mmHg Body Temperature 97.8 F Heart Rate 78 /min Respiratory Rate 14 /min Height 62 inches 5'2" Weight 260.00 lb [place] Body Weight 110 lb BMI (Body Mass Index) 47.5 kg/m2 O2 % BldC Oximetry 97 % Results Test Acquired Date Facility Test Result H/L Range Note Laboratory test finding 04/28/2020 [facility] Hemoglobin A1c 6.7 % High 4.40 - 6.10 1 TSH 3.217 ulU/mL 0.60 - 4.8 Metabolic [...] HCT IS 5% LESS SOURCE FOR DATA: [facility] 1800 OPERATION MANUAL( AUTOMATED BLOOD COUNTS AND DIFF.) APPENDIX B-3 Procedures Description No Information Available Medical Devices Description No Information Available Encounters Type Date Location Provider Dx Diagnosis Office Visit 04/28/2020 2:30p [facility] Ck De Oliveira M.D . E03.9 Hypothyroidism, unspecified I10 Essential (primary) hyperten daniel E11.9 Type 2 diabetes mellitus wit hout complications I25.10 Athscl heart disease of [place] coronary artery w/o ang pctrs E78.5 Hyperlipidemia, unspecified J45.909 Unspecified asthma, uncompli cated Office Visit 12/29/2019 10:40a [facility] Ck De Oliveira M.D . E03.9 Hypothyroidism, unspecified I10 Essential (primary) hyperten daniel E11.9 Type 2 diabetes mellitus wit hout complications I25.10 Athscl heart disease of [place] ve coronary artery w/o ang pctrs E78.5 Hyperlipidemia, unspecified J45.909 Unspecified asthma, uncompli cated Assessments Date Code Description Provider 04/28/2020 E03.9 Hypothyroidism, unspecified [facility] Ck pang M.D. 04/28/2020 I10 Essential (primary) hypertension Ck De Oliveira M.D. 04/28/2020 E11.9 Type 2 diabetes mellitus without complications Ck De Oliveira M.D. 04/28/2020 I25.10 Atherosclerotic hear t disease [place] coronary artery without angina pectoris Ck De Oliveira M.D. 04/28/2020 E78.5 Hyperlipidemia, unspecified [facility] Ck pang M.D. 04/28/2020 J45.909 Unspecified asthma, uncomplicate d Ck De Oliveira M.D. 12/29/2019 E03.9 Hypothyroidism, unspecified [facility] Ck pang M.D. 12/29/2019 I10 Essential (primary) hypertension Ck De Oliveira M.D. 12/29/2019 E11.9 Type 2 diabetes mellitus without complications Ck De Oliveira M.D. 12/29/2019 I25.10 Atherosclerotic hear t disease of [place] coronary artery without angina pectoris Ck De Oliveira M.D. 12/29/2019 E78.5 Hyperlipidemia, unspecified [facility] Ck pang M.D. 12/29/2019 J45.909 Unspecified asthma, uncomplicate d Ck De Oliveira M.D. Plan of Treatment Future Appointment(s):* 08/04/2020 1:30 pm - Ck De Oliveira M.D. at [facility] Functional Status Description No Information Available Mental Status Description No Information Available Referrals Refer to Dr Reason for Referral Status Appt Date [facility] right knee pain- eval and rx Sent 02/29/2020 [address] [place] [address] [phone]
[2020-06-08] MEDS: COMBIVENT RESPIMAT 100-20MCG INHALER 4GM INH SCH ×3 (17:13→17:55)
--- OUTSIDE RECORDS SUMMARY | 2020-06-08 17:13 | CCD ---
Author Author [facility] Organization [facility] Address Unknown Phone Unavailable Care Team Providers Care Implementation Manager Name Role Phone Constantine LAMBERT MD Unavailable Unavailable Constantine LAMBERT MD Unavailable Unavailable Constantine LAMBERT MD Unavailable Unavailable Constantine LAMBERT MD Unavailable Unavailable Constantine LAMBERT MD Unavailable Unavailable Constantine LAMBERT MD Unavailable Unavailable Constantine LAMBERT MD Unavailable Unavailable Constantine LAMBERT MD Unavailable Unavailable Constantine LAMBERT MD Unavailable Unavailable Constantine LAMBERT MD Unavailable Unavailable Constantine LAMBERT MD Unavailable Unavailable Constantine LAMBERT MD Unavailable Unavailable Constantine LAMBERT MD Unavailable Unavailable Constantine LAMBERT MD Unavailable Unavailable Constantine LAMBERT MD Unavailable Unavailable Constantine LAMBERT MD Unavailable Unavailable Constantine LAMBERT MD Unavailable Unavailable Constantine LAMBERT MD Unavailable Unavailable Constantine LAMBERT MD Unavailable Unavailable Constantine LAMBERT MD Unavailable Unavailable Constantine LAMBERT MD Unavailable Unavailable Constantine LAMBERT MD Unavailable Unavailable Constantine LAMBERT MD Unavailable Unavailable Constantine LAMBERT MD Unavailable Unavailable Constantine LAMBERT MD Unavailable Unavailable Constantine LAMBERT MD Unavailable Unavailable Constantine LAMBERT MD Unavailable Unavailable Constantine LAMBERT MD Unavailable Unavailable Constantine LAMBERT MD Unavailable Unavailable Constantine LAMBERT MD Unavailable Unavailable Constantine LAMBERT MD Unavailable Unavailable Constantine LAMBERT MD Unavailable Unavailable Constantine LAMBERT MD Unavailable Unavailable Constantine LAMBERT MD Unavailable Unavailable Constantine LAMBERT MD Unavailable Unavailable Constantine LAMBERT MD Unavailable Unavailable Constantine LAMBERT MD Unavailable Unavailable Constantine LAMBERT MD Unavailable Unavailable Constantine LAMBERT MD Unavailable Unavailable Constantine LAMBERT MD Unavailable Unavailable Constantine LAMBERT MD Unavailable Unavailable Constantine LAMBERT MD Unavailable Unavailable Constantine LAMBERT MD Unavailable Unavailable Constantine LAMBERT MD Unavailable Unavailable Constantine LAMBERT MD Unavailable Unavailable FAUSTO H CK SHI Unavailable Unavailable FAUSTO H CK SHI Unavailable Unavailable Constantine LAMBERT MD Unavailable Unavailable FAUSTO H CK SHI Unavailable Unavailable Constantine LAMBERT MD Unavailable Unavailable Constantine LAMBERT MD Unavailable Unavailable FAUSTO H CK SHI Unavailable Unavailable Constantine LAMBERT MD Unavailable Unavailable Constantine LAMBERT MD Unavailable Unavailable FAUSTO H CK SHI Unavailable Unavailable Constantine LAMBERT MD Unavailable Unavailable Constantine LAMBERT MD Unavailable Unavailable Constantine LAMBERT MD Unavailable Unavailable Constantine LAMBERT MD Unavailable Unavailable Constantine LAMBERT MD Unavailable Unavailable Constanitne LAMBERT MD Unavailable Unavailable Constantine LAMBERT MD Unavailable Unavailable Constantine LAMBERT MD Unavailable Unavailable Constantine LAMBERT MD Unavailable Unavailable Constantine LAMBERT MD Unavailable Unavailable Constantine LAMBERT MD Unavailable Unavailable Constantine LAMBERT MD Unavailable Unavailable Constantine LAMBERT MD Unavailable Unavailable Constantine LAMBERT MD Unavailable Unavailable Constantine LAMBERT MD Unavailable Unavailable Constantine LAMBERT MD Unavailable Unavailable Constantine LAMBERT MD Unavailable Unavailable Constantine LAMBERT MD Unavailable Unavailable Constantine LAMBERT MD Unavailable Unavailable Constantine LAMBERT MD Unavailable Unavailable Constantine LAMBERT MD Unavailable Unavailable Caroline Aiken MD Unavailable Unavailable Caroline Aiken MD Unavailable Unavailable Caroline Aiken MD Unavailable Unavailable Caroline Aiken MD Unavailable Unavailable Caroline Aiken MD Unavailable Unavailable Caroline Aiken MD Unavailable Unavailable Caroline Aiken MD Unavailable Unavailable Caroline Aiken MD Unavailable Unavailable Caroline Aiken MD Unavailable Unavailable Caroline Aiken MD Unavailable Unavailable Caroline Aiken MD Unavailable Unavailable Caroline Aiken MD Unavailable Unavailable Caroline Aiken MD Unavailable Unavailable Caroline Aiken MD Unavailable Unavailable Caroline Aiken MD Unavailable Unavailable Caroline Aiken MD Unavailable Unavailable Caroline Aiken MD Unavailable Unavailable Caroline Aiken MD Unavailable Unavailable Caroline Aiken MD Unavailable Unavailable Caroline Aiken MD Unavailable Unavailable Caroline Aiken MD Unavailable Unavailable Caroline Aiken MD Unavailable Unavailable Lenexa Falanga, A Dasha VENTILATOR SPECIALIST Unavailable Unavailable Lenexa Falanga, A Dasha VENTILATOR SPECIALIST Unavailable Unavailable Seema Falanga, A Dasha VENTILATOR SPECIALIST Unavailable Unavailable Lenexa Falanga, A Dasha VENTILATOR SPECIALIST Unavailable Unavailable Seema Falanga, A Dasha VENTILATOR SPECIALIST Unavailable Unavailable Lenexa Falanga, A Dasha VENTILATOR SPECIALIST Unavailable Unavailable Seema Falanga, A Dasha VENTILATOR SPECIALIST Unavailable Unavailable Lenexa Falanga, A Dasha VENTILATOR SPECIALIST Unavailable Unavailable Lenexa Falanga, A Dasha VENTILATOR SPECIALIST Unavailable Unavailable Lenexa Falanga, A Dasha VENTILATOR SPECIALIST Unavailable Unavailable Seema Falanga, A Dasha VENTILATOR SPECIALIST Unavailable Unavailable Seema Falanga, A Dasha VENTILATOR SPECIALIST Unavailable Unavailable Seema Falanga, A Dasha VENTILATOR SPECIALIST Unavailable Unavailable Seema Falanga, A Dasha VENTILATOR SPECIALIST Unavailable Unavailable Seema Falanga, A Dasha VENTILATOR SPECIALIST Unavailable Unavailable Lenexa Falanga, A Dasha VENTILATOR SPECIALIST Unavailable Unavailable Lenexa Falanga, A Dasha VENTILATOR SPECIALIST Unavailable Unavailable Seema Falanga, A Dasha VENTILATOR SPECIALIST Unavailable Unavailable Seema Falanga, A Dasha VENTILATOR SPECIALIST Unavailable Unavailable Lenexa Falanga, A Dasha VENTILATOR SPECIALIST Unavailable Unavailable Lenexa Falanga, A Dasha VENTILATOR SPECIALIST Unavailable Unavailable Seema Falanga, A Dasha VENTILATOR SPECIALIST Unavailable Unavailable Lenexa Falanga, A Dasha VENTILATOR SPECIALIST Unavailable Unavailable Seema Falanga, A Dasha VENTILATOR SPECIALIST Unavailable Unavailable Lenexa Falanga, A Dasha VENTILATOR SPECIALIST Unavailable Unavailable Seema Falanga, A Dasha VENTILATOR SPECIALIST Unavailable Unavailable Lenexa Falanga, A Dasha VENTILATOR SPECIALIST Unavailable Unavailable Seema Falanga, A Dasha VENTILATOR SPECIALIST Unavailable Unavailable Lenexa Falanga, A Dasha VENTILATOR SPECIALIST Unavailable Unavailable Lenexa Falanga, A Dasha VENTILATOR SPECIALIST Unavailable Unavailable Fish, J Maulik Unavailable Unavailable Fish, J Maulik Unavailable Unavailable Fish, J Maulik Unavailable Unavailable Fish, J Maulik Unavailable Unavailable Fish, J Maulik Unavailable Unavailable Fish, J Maulik Unavailable Unavailable Fish, J Maulik Unavailable Unavailable Fish, J Maulik Unavailable Unavailable Fish, J Maulik Unavailable Unavailable Fish, J Maulik Unavailable Unavailable Fish, J Maulik Unavailable Unavailable Fish, J Maulik Unavailable Unavailable Fish, J Maulik Unavailable Unavailable Fish, J Maulik Unavailable Unavailable Fish, J Maulik Unavailable Unavailable Fish, J Maulik Unavailable Unavailable Fish, J Maulik Unavailable Unavailable Fish, J Maulik Unavailable Unavailable Fish, J Maulik Unavailable Unavailable Fish, J Maulik Unavailable Unavailable Fish, J Maulik Unavailable Unavailable Fish, J Maulik Unavailable Unavailable Fish, J Maulik Unavailable Unavailable Fish, J Maulik Unavailable Unavailable Fish, J Maulik Unavailable Unavailable Fish, J Maulik Unavailable Unavailable Fish, J Maulik Unavailable Unavailable Fish, J Maulik Unavailable Unavailable Fish, J Maulik Unavailable Unavailable Fish, J Maulik Unavailable Unavailable Fish, J Maulik Unavailable Unavailable Fish, J Maulik Unavailable Unavailable Fish, J Maulik Unavailable Unavailable Fish, J Maulik Unavailable Unavailable Fish, J Maulik Unavailable Unavailable Fish, J Maulik Unavailable Unavailable Fish, J Maulik Unavailable Unavailable Fish, J Maulik Unavailable Unavailable Fish, J Maulik Unavailable Unavailable Fish, J Maulik Unavailable Unavailable Fish, J Maulik Unavailable Unavailable Fish, J Maulik Unavailable Unavailable Fish, J Maulik Unavailable Unavailable Fish, J Maulik Unavailable Unavailable Fish, J Maulik Unavailable Unavailable Fish, J Maulik Unavailable Unavailable Fish, J Maulik Unavailable Unavailable Fish, J Maulik Unavailable Unavailable Fish, J Maulik Unavailable Unavailable Fish, J Maulik Unavailable Unavailable Fish, J Maulik Unavailable Unavailable Fish, J Maulik Unavailable Unavailable Fish, J Maulik Unavailable Unavailable Fish, J Maulik Unavailable Unavailable Fish, J Maulik Unavailable Unavailable Fish, J Maulik Unavailable Unavailable Fish, J Maulik Unavailable Unavailable Fish, J Maulik Unavailable Unavailable Fish, J Maulik Unavailable Unavailable Fish, J Maulik Unavailable Unavailable Fish, J Maulik Unavailable Unavailable Fish, J Maulik Unavailable Unavailable Fish, J Maulik Unavailable Unavailable Fish, J Maulik Unavailable Unavailable Fish, J Maulik Unavailable Unavailable Fish, J Maulik Unavailable Unavailable Fish, J Maulik Unavailable Unavailable Fish, J Maulik Unavailable Unavailable Fish, J Maulik Unavailable Unavailable Fish, J Maulik Unavailable Unavailable Fish, J Maulik Unavailable Unavailable Fish, J Maulik Unavailable Unavailable Fish, J Maulik Unavailable Unavailable Fish, J Maulik Unavailable Unavailable Fish, J Maulik Unavailable Unavailable Fish, J Maulik Unavailable Unavailable Fish, J Maulik Unavailable Unavailable Fish, J Maulik Unavailable Unavailable Fish, J Maulik Unavailable Unavailable Fish, J Maulik Unavailable Unavailable Fish, J Maulik Unavailable Unavailable Fish, J Maulik Unavailable Unavailable Fish, J Maulik Unavailable Unavailable Fish, J Maulik Unavailable Unavailable Fish, J Maulik Unavailable Unavailable VENERUS, J OTONIEL MD Unavailable Unavailable VENERUS, J OTONIEL MD Unavailable Unavailable VENERUS, J OTONIEL MD Unavailable Unavailable VENERUS, J OTONIEL MD Unavailable Unavailable VENERUS, J OTONIEL MD Unavailable Unavailable VENERUS, J OTONIEL MD Unavailable Unavailable VENERUS, J OTONIEL MD Unavailable Unavailable VENERUS, J OTONIEL MD Unavailable Unavailable VENERUS, J OTONIEL MD Unavailable Unavailable Re-disclosure Warning The records that you are about to access may contain information from federally-assisted alcohol or drug abuse programs. If such information is present, then the following federally mandated warning applies: This information has been disclosed to you from records protected by federal confidentiality rules (42 CFR part 2). The federal rules prohibit you from making any further disclosure of this information unless further disclosure is expressly permitted by the written consent of the person to whom it pertains or as otherwise permitted by 42 CFR part 2. A general authorization for the release of medical or other information is NOT sufficient for this purpose. The Federal rules restrict any use of the information to criminally investigate or prosecute any alcohol or drug abuse patient.The records that you are about to access may contain highly sensitive health information, the redisclosure of which is protected by Article 27-F of the [facility] Public Health law. If you continue you may have access to information: Regarding HIV / AIDS; Provided by facilities licensed or operated by the [facility] Office of Mental Health; or Provided by the [facility] Office for People With Developmental Disabilities. If such information is present, then the following [facility] mandated warning applies: This information has been disclosed to you from confidential records which are protected by state law. State law prohibits you from making any further disclosure of this information without the specific written consent of the person to whom it pertains, or as otherwise permitted by law. Any unauthorized further disclosure in violation of state law may result in a fine or snf sentence or both. A general authorization for the release of medical or other information is NOT sufficient authorization for further disc losure. Allergies and Adverse Reactions Type Description Substance Reaction Status Data Source(s ) BRANDNAME DEMEROL HYDROCHLORIDE DEMEROL HYDROCHLORIDE UNSURE [facility] Drug allergy PROMETHAZINE PROMETHAZINE DISSORIENTED [facility] Family History Family Member Name Family Member Gender Family Member Status Date o f Status Description Data Source(s) Unknown Male Problem [facility] ([facility] ) Unknown Unknown Problem [facility] ([facility], ) Encounters Encounter Providers Location Date Indications Data Source(s ) Outpatient Attender: CK LAMBERT MD [place] [facility] 01:30:00 PM EST [facility] ([facility] Outpatient Attender: Ck Sorensen/Sunny/Osvaldo/Yamileth easley 02/29/2020 02:30:00 PM EDT [facility] ([facility], ) Outpatient Attender: CK LAMBERT MD [place] [facility] 10:40:00 AM EDT [facility] ([facility] Outpatient Attender: CK LAMBERT MD [place] [facility] 10:20:00 AM EDT [facility] ([facility] Outpatient Attender: Dasha stapleton FNPAttender: OTONIEL REYES MDConsultant: Maulikbritton Alvarenga 10/19/2019 03:30:00 AM EDT - 10/21/2019 11:55:00 AM EDT [facility] Patient discharged. Outpatient Attender: CK LAMBERT MD [place] [facility] 08:30:00 AM EST [facility] ([facility] Immunizations Vaccine Date Status Description Data Source(s) VARICELLA-ZOSTER VIRUS GLYCOPROTEIN E,REC/AS01B ADJUVA NT/PF 07/01/2019 12:00:00 AM EST completed [facility] Medications Medication Brand Name Start Date Product Form Dose Route Admi nistrative Instructions Pharmacy Instructions Status Indications Reaction Description Data Source(s) Cephalexin 500 MG Oral Capsule CEPHALEXIN 06/01/2020 12:00:00 AM EST capsule 21 TAKE ONE CAPSULE BY MOUTH THREE TIMES A DAY FOR 7 DAYS TAKE ONE CAPSULE BY MOUTH THREE TIMES A DAY FOR 7 DAYS SOLD: 06/01/2020 [facility] Zithromax Z-Mike Zithromax Z-Mike 04/28/2020 12:00:00 AM EST ORAL active [facility] ([facility] 150 mg 01/31/2020 12:00:00 AM EDT tablet 1 TAKE ONE TABLET BY MOUTH EVERY DAY TAKE ONE TABLET BY MOUTH EVERY DAY SOLD: 01/31/2020 [facility] 12 HR Guaifenesin 600 MG Extended Release Oral Tablet GUAIFE NESIN 01/31/2020 12:00:00 AM EDT tablet extended release 12hr 20 LARRY E ONE TABLET BY MOUTH EVERY 12 HOURS FOR 10 DAYS TAKE ONE TABLET BY MOUTH EVERY 12 HOURS FOR 10 DAYS SO LD: 01/31/2020 [facility] 875-125 mg 01/31/2020 12:00:00 AM EDT tablet 20 TAKE ONE TABLET BY MOUTH TWICE A DAY FOR 10 DAYS TAKE ONE TABLET BY MOUTH TWICE A DAY FOR 10 DAYS SOLD: 01/31/2020 [facility] Triamcinolone Acetonide 1 MG/ML Topical Cream Triamcinolone Acetonide 12/29/2019 12:00:00 AM EDT active M [facility] ([facility] montelukast 10 MG Oral Tablet MONTELUKAST SODIUM 09/06/2019 12:0 0:00 AM EDT tablet 30 TAKE ONE TABLET BY MOUTH EVERY D AY TAKE ONE TABLET BY MOUTH EVERY DAY SOLD: 09/06/2019 [facility] 10 mg 09/06/2019 12:00:00 AM EDT tablet 30 TAKE ONE TABLET BY MOUTH EVERY DAY TAKE ONE TABLET BY MOUTH EVERY DAY SOLD: 09/06/2019 [facility] 875 mg 09/06/2019 12:00:00 AM EDT tablet 10 TAKE ONE TABLET BY MOUTH EVERY 12 HOURS FOR 5 DAYS TAKE ONE TABLET BY MOUTH EVERY 12 HOURS FOR 5 DAYS CHRISTIANO [facility] Blood Glucose Monitoring System 07/01/2019 12:00:00 AM EST completed [facility] Lancets 07/01/2019 12:00:00 AM EST completed [facility] ([facility] Rosuvastatin calcium 10 MG Oral Tablet Rosuvastatin Calcium 07/01/2019 12:00:00 AM EST ORAL active [facility] ([facility] 1 mg 06/04/2019 12:00:00 AM EST tablet 30 TAKE ONE TABLET BY MOUTH THREE TIMES A DAY NEEDED FOR AXNIETY MAXIMUM DAILY DOSE = THREE TABLETS TAKE ONE TABLET BY MOUTH THREE TIMES A DAY NEEDED FOR AXNIETY MAXIMUM DAILY DOSE = THREE TABLETS SOLD: 06/08/2019 [facility] 100 mg 05/24/2019 12:00:00 AM EST capsule 20 TAKE ONE CAPSULE BY MOUTH TWICE A DAY FOR 10 DAYS TAKE ONE CAPSULE BY MOUTH TWICE A DAY FOR 10 DAYS SOLD : 05/24/2019 [facility] benzonatate 200 MG Oral Capsule BENZONATATE 05/24/2019 12:00:00 AM EST capsule 15 TAKE ONE CAPSULE BY MOUTH THREE TIMES A DAY FOR 5 DAYS TAKE ONE CAPSULE BY MOUTH THREE TIMES A DAY FOR 5 DAYS SOLD: 05/24/2019 [facility] 1 mg 04/20/2019 12:00:00 AM EST tablet 30 TAKE ONE TABLET BY MOUTH THREE TIMES A DAY NEEDED FOR ANXIETY MAXIMUM DAILY DOSE = THREE TABLETS TAKE ONE TABLET BY MOUTH THREE TIMES A DAY NEEDED FOR ANXIETY MAXIMUM DAILY DOSE = THREE TABLETS SOLD: 05/04/2019 [facility] 50 mg 03/23/2019 12:00:00 AM EST tablet 30 TAKE ONE TABLET BY MOUTH AT BEDTIME TAKE ONE TABLET BY MOUTH AT BEDTIME SOLD: 06/08/2019 [facility] 50 mg 03/23/2019 12:00:00 AM EST tablet 30 TAKE ONE TABLET BY MOUTH AT BEDTIME TAKE ONE TABLET BY MOUTH AT BEDTIME SOLD: 05/04/2019 [facility] 10 mg 02/11/2019 12:00:00 AM EDT tablet 90 TAKE ONE TABLET BY MOUTH EVERY DAY TAKE ONE TABLET BY MOUTH EVERY DAY SOLD: 06/08/2019 [facility] 10 mg 02/11/2019 12:00:00 AM EDT tablet 90 TAKE ONE TABLET BY MOUTH EVERY DAY TAKE ONE TABLET BY MOUTH EVERY DAY SOLD: 09/06/2019 [facility] 5 mg 10/29/2018 12:00:00 AM EDT capsule 90 TAKE ONE CAPSULE BY MOUTH EVERY DAY TAKE ONE CAPSULE BY MOUTH EVERY DAY SOLD: 05/24/2019 [facility] 5 mg 10/29/2018 12:00:00 AM EDT capsule 90 TAKE ONE CAPSULE BY MOUTH EVERY DAY TAKE ONE CAPSULE BY MOUTH EVERY DAY SOLD: 09/06/2019 [facility] Insurance Providers Payer name Policy type / Coverage type Policy ID Covered democrat ID Covered democrat's relationship to garcia Policy Garcia Plan Information LIBIA [id number] SP [id number] MEDICARE [id number] SP [id number] MEDICARE PART A -O/P [id number] 18 [id number] MEDICAID -O/P EMERGENCY ROOM [id number] MEDICAID [id number] SP [id number] [place] [id number] Self [id number] [place] [id number] Self [id number] MEDICARE [id number] SP [id number] [place] [id number] Self [id number] [place] [id number] [place] [id number] [place] [id number] Self [id number] [place] Medicare Primary [id number] Self [id number] MEDICAID [id number] SP [id number] MEDICARE [id number] SP [id number] [place] [id number] Self [id number] [place] [id number] Self [id number] MEDICAID [id number] SP [id number] MEDICARE [id number] -[place] [id number] Self [id number] [place] [id number] Self [id number] MEDICARE C [id number] S [id number] M MEDICAID M [id number] S [id number] Medicaid [place] Part B [id number] Self [id number] Medicare [place] Medicare Primary [id number] Self [id number] [place] [id number] Self [id number] [place] [id number] Self [id number] MEDICARE PI PI MEDICAID PI PI MEDICAID [id number] Amy [id number] MEDICARE [id number] Amy [id number] M MEDICARE [id number] SP [id number] MEDICARE C [id number] S [id number] MEDICAID [id number] Problems, Conditions, and Diagnoses Code Display Name Description Problem Type Effective Dates Data Source(s) E119 Type 2 diabetes mellitus without complic ations Type 2 diabetes mellitus without complications Diagnosis 10/19/2019 03:30:00 AM EDT [facility] G4730 Sleep apnea, unspecified Sleep apnea, unspecified Diag nosis 10/19/2019 03:30:00 AM EDT [facility] [id number] Body mass index (BMI) 45.0-49.9, adult B bhavya mass index (BMI) 45.0-49.9, adult Diagnosis 10/19/2019 03:30:00 AM EDT [facility] E669 Obesity, unspecified Obesity, unspecified Diagnosis 10/19/2019 03:30:00 AM EDT [facility] F339 Major depressive disorder, recurrent, un specified Major depressive disorder, recurrent, unspecified Diagnosis 10/19/2019 03:30:00 AM EDT [facility] F419 Anxiety disorder, unspecified Anxiety disorder, unspec ified Diagnosis 10/19/2019 03:30:00 AM EDT [facility] M797 Fibromyalgia Fibromyalgia Diagnosis 10/19/2019 03:30:00 A M EDT [facility] I10 Essential (primary) hypertension Essential (primary) h ypertension Diagnosis [facility] Chronic obstructive pulmonary disease, u nspecified Chronic obstructive pulmonary disease, unspecified Diagnosis 10/19/2019 03:30:00 AM EDT [facility] R0789 Other chest pain Other chest pain Diagnosis 10/19/2019 03 :30:00 AM EDT [facility] Surgeries/Procedures Procedure Description Date Indications Data Source(s) X-Ray Hip Unilateral With Pelvis 2-3 Views 02/29/2020 12:00:00 AM EDT [facility] ([facility] ) RADIOLOGIC EXAM KNEE COMPLETE 4/MORE VIEWS 02/29/2020 12:00:00 AM EDT [facility] ([facility]) Inject/Drain Arthrocentesis Major Joint/Bursa/Ganglion Cyst 02/29/2020 12:00:00 AM EDT [facility] Results ID Date Data Source [id number] 06/01/2020 12:00:00 AM EST NABEEL Name Value Range Interpretation Code Description Data Malathi rce(s) Supporting Document(s) SARS-CoV2 Rapid Antigen Positive [facility] This lab was ordered by [facility] and reported by [facility]. ID Date Data Source [id number] 04/28/2020 02:43:00 PM EST [facility] ([facility] Name Value Range Interpretation Code Description Data Malathi rce(s) Supporting Document(s) Hemoglobin A1c/Hemoglobin.total in Blood 6.7 % 4.40-6.10 Above high normal [facility] ([facility] CHRONIC KIDNEY DISEASE STAGING PER NKF: MALE GFR INTERPRETATION: 20-49 YRS: [...] ADOLESCENTS REPRESENTS INDIVIDUALA AGED 2-19 YEARS EXCLUSIVE. Thyrotropin [Units/volume] in Serum or Plasma 3.217 ulU/mL 0.60-4.8 [facility] ([facility] CHRONIC KIDNEY DISEASE STAGING PER NKF: MALE GFR INTERPRETATION: 20-49 YRS: [...] DESIRABLE: <130 MG/DL <110 MG/DL BORDERLINE-HIGH RISK: 130- 159 MG/DL 110-129 MG/DL HIGH RISK: >160 MG/DL >130 MG/DL *CHILDREN AND ADOLESCENTS REPRESENTS INDIVIDUALA AGED 2-19 YEARS EXCLUSIVE. ID Date Data Source [id number] 04/28/2020 02:43:00 PM EST [facility] ([facility] Name Value Range Interpretation Code Description Data Malathi rce(s) Supporting Document(s) Trig 104 mg/dL 40-200 [facility] CHRONIC KIDNEY DISEASE STAGING PER NKF: MALE GFR INTERPRETATION: 20-49 YRS: [...] DESIRABLE: <130 MG/DL <110 MG/DL BORDERLINE-HIGH RISK: 130- 159 MG/DL 110-129 MG/DL HIGH RISK: >160 MG/DL >130 MG/DL *CHILDREN AND ADOLESCENTS REPRESENTS INDIVIDUALA AGED 2-19 YEARS EXCLUSIVE. Chol 133 mg/dL 0-200 [facility] CHRONIC KIDNEY DISEASE STAGING PER NKF: MALE GFR INTERPRETATION: 20-49 YRS: [...] DESIRABLE: <130 MG/DL <110 MG/DL BORDERLINE-HIGH RISK: 130- 159 MG/DL 110-129 MG/DL HIGH RISK: >160 MG/DL >130 MG/DL *CHILDREN AND ADOLESCENTS REPRESENTS INDIVIDUALA AGED 2-19 YEARS EXCLUSIVE. Cholesterol in HDL [Mass/volume] in Serum or Plasma 50 mg/dL 45-65 [facility] ([facility] CHRONIC KIDNEY DISEASE STAGING PER NKF: MALE GFR INTERPRETATION: 20-49 YRS: [...] DESIRABLE: <130 MG/DL <110 MG/DL BORDERLINE-HIGH RISK: 130- 159 MG/DL 110-129 MG/DL HIGH RISK: >160 MG/DL >130 MG/DL *CHILDREN AND ADOLESCENTS REPRESENTS INDIVIDUALA AGED 2-19 YEARS EXCLUSIVE. LDL_C 62 Calc 75-129 Below low normal [facility] ( [facility] CHRONIC KIDNEY DISEASE STAGING PER NKF: MALE GFR INTERPRETATION: 20-49 YRS: [...] DESIRABLE: <130 MG/DL <110 MG/DL BORDERLINE-HIGH RISK: 130- 159 MG/DL 110-129 MG/DL HIGH RISK: >160 MG/DL >130 MG/DL *CHILDREN AND ADOLESCENTS REPRESENTS INDIVIDUALA AGED 2-19 YEARS EXCLUSIVE. Cho/HDL Ratio 2.7 CALC [facility] ([facility] CHRONIC KIDNEY DISEASE STAGING PER NKF: MALE GFR INTERPRETATION: 20-49 YRS: [...] DESIRABLE: <130 MG/DL <110 MG/DL BORDERLINE-HIGH RISK: 130- 159 MG/DL 110-129 MG/DL HIGH RISK: >160 MG/DL >130 MG/DL *CHILDREN AND ADOLESCENTS REPRESENTS INDIVIDUALA AGED 2-19 YEARS EXCLUSIVE. ID Date Data Source [id number] 04/28/2020 02:43:00 PM EST [facility] ([facility] Name Value Range Interpretation Code Description Data Malathi rce(s) Supporting Document(s) Glu 177 mg/dL 70-110 Above high normal [facility] ([facility] CHRONIC KIDNEY DISEASE STAGING PER NKF: MALE GFR INTERPRETATION: 20-49 YRS: [...] DESIRABLE: <130 MG/DL <110 MG/DL BORDERLINE-HIGH RISK: 130- 159 MG/DL 110-129 MG/DL HIGH RISK: >160 MG/DL >130 MG/DL *CHILDREN AND ADOLESCENTS REPRESENTS INDIVIDUALA AGED 2-19 YEARS EXCLUSIVE. BUN 16 mg/dL 8-23 [facility] ([facility] CHRONIC KIDNEY DISEASE STAGING PER NKF: MALE GFR INTERPRETATION: 20-49 YRS: [...] DESIRABLE: <130 MG/DL <110 MG/DL BORDERLINE-HIGH RISK: 130- 159 MG/DL 110-129 MG/DL HIGH RISK: >160 MG/DL >130 MG/DL *CHILDREN AND ADOLESCENTS REPRESENTS INDIVIDUALA AGED 2-19 YEARS EXCLUSIVE. Creat 0.9 mg/dL 0.5-1.0 [facility] CHRONIC KIDNEY DISEASE STAGING PER NKF: MALE GFR INTERPRETATION: 20-49 YRS: [...] DESIRABLE: <130 MG/DL <110 MG/DL BORDERLINE-HIGH RISK: 130- 159 MG/DL 110-129 MG/DL HIGH RISK: >160 MG/DL >130 MG/DL *CHILDREN AND ADOLESCENTS REPRESENTS INDIVIDUALA AGED 2-19 YEARS EXCLUSIVE. Na 137 mmol/L 136-145 [facility] ([facility] CHRONIC KIDNEY DISEASE STAGING PER NKF: MALE GFR INTERPRETATION: 20-49 YRS: [...] DESIRABLE: <130 MG/DL <110 MG/DL BORDERLINE-HIGH RISK: 130- 159 MG/DL 110-129 MG/DL HIGH RISK: >160 MG/DL >130 MG/DL *CHILDREN AND ADOLESCENTS REPRESENTS INDIVIDUALA AGED 2-19 YEARS EXCLUSIVE. BUN/Creatinine Ratio 18.2 CALC [facility] ([facility] CHRONIC KIDNEY DISEASE STAGING PER NKF: MALE GFR INTERPRETATION: 20-49 YRS: [...] DESIRABLE: <130 MG/DL <110 MG/DL BORDERLINE-HIGH RISK: 130- 159 MG/DL 110-129 MG/DL HIGH RISK: >160 MG/DL >130 MG/DL *CHILDREN AND ADOLESCENTS REPRESENTS INDIVIDUALA AGED 2-19 YEARS EXCLUSIVE. Co2 27.2 mmol/L 22.0-29.0 [facility] ([facility] CHRONIC KIDNEY DISEASE STAGING PER NKF: MALE GFR INTERPRETATION: 20-49 YRS: [...] DESIRABLE: <130 MG/DL <110 MG/DL BORDERLINE-HIGH RISK: 130- 159 MG/DL 110-129 MG/DL HIGH RISK: >160 MG/DL >130 MG/DL *CHILDREN AND ADOLESCENTS REPRESENTS INDIVIDUALA AGED 2-19 YEARS EXCLUSIVE. CL 101.4 mmol/L 98.0-107.0 [facility] ([facility] CHRONIC KIDNEY DISEASE STAGING PER NKF: MALE GFR INTERPRETATION: 20-49 YRS: [...] DESIRABLE: <130 MG/DL <110 MG/DL BORDERLINE-HIGH RISK: 130- 159 MG/DL 110-129 MG/DL HIGH RISK: >160 MG/DL >130 MG/DL *CHILDREN AND ADOLESCENTS REPRESENTS INDIVIDUALA AGED 2-19 YEARS EXCLUSIVE. K 4.7 mmol/L 3.5-5.1 [facility] ([facility] CHRONIC KIDNEY DISEASE STAGING PER NKF: MALE GFR INTERPRETATION: 20-49 YRS: [...] DESIRABLE: <130 MG/DL <110 MG/DL BORDERLINE-HIGH RISK: 130- 159 MG/DL 110-129 MG/DL HIGH RISK: >160 MG/DL >130 MG/DL *CHILDREN AND ADOLESCENTS REPRESENTS INDIVIDUALA AGED 2-19 YEARS EXCLUSIVE. Alb 4.0 g/dL 3.4-4.8 [facility] ([facility] CHRONIC KIDNEY DISEASE STAGING PER NKF: MALE GFR INTERPRETATION: 20-49 YRS: [...] DESIRABLE: <130 MG/DL <110 MG/DL BORDERLINE-HIGH RISK: 130- 159 MG/DL 110-129 MG/DL HIGH RISK: >160 MG/DL >130 MG/DL *CHILDREN AND ADOLESCENTS REPRESENTS INDIVIDUALA AGED 2-19 YEARS EXCLUSIVE. TP 6.4 g/dL 6.6-8.7 Below low normal [facility] ( [facility] CHRONIC KIDNEY DISEASE STAGING PER NKF: MALE GFR INTERPRETATION: 20-49 YRS: [...] DESIRABLE: <130 MG/DL <110 MG/DL BORDERLINE-HIGH RISK: 130- 159 MG/DL 110-129 MG/DL HIGH RISK: >160 MG/DL >130 MG/DL *CHILDREN AND ADOLESCENTS REPRESENTS INDIVIDUALA AGED 2-19 YEARS EXCLUSIVE. CA 9.1 mg/dL 8.6-10.2 [facility] CHRONIC KIDNEY DISEASE STAGING PER NKF: MALE GFR INTERPRETATION: 20-49 YRS: [...] DESIRABLE: <130 MG/DL <110 MG/DL BORDERLINE-HIGH RISK: 130- 159 MG/DL 110-129 MG/DL HIGH RISK: >160 MG/DL >130 MG/DL *CHILDREN AND ADOLESCENTS REPRESENTS INDIVIDUALA AGED 2-19 YEARS EXCLUSIVE. Globulin 2.3 CALC [facility] ([facility] CHRONIC KIDNEY DISEASE STAGING PER NKF: MALE GFR INTERPRETATION: 20-49 YRS: [...] DESIRABLE: <130 MG/DL <110 MG/DL BORDERLINE-HIGH RISK: 130- 159 MG/DL 110-129 MG/DL HIGH RISK: >160 MG/DL >130 MG/DL *CHILDREN AND ADOLESCENTS REPRESENTS INDIVIDUALA AGED 2-19 YEARS EXCLUSIVE. A/G Ratio 1.7 CALC [facility] ([facility] CHRONIC KIDNEY DISEASE STAGING PER NKF: MALE GFR INTERPRETATION: 20-49 YRS: [...] DESIRABLE: <130 MG/DL <110 MG/DL BORDERLINE-HIGH RISK: 130- 159 MG/DL 110-129 MG/DL HIGH RISK: >160 MG/DL >130 MG/DL *CHILDREN AND ADOLESCENTS REPRESENTS INDIVIDUALA AGED 2-19 YEARS EXCLUSIVE. Alp 82.2 U/L 35-129 [facility] ([facility] CHRONIC KIDNEY DISEASE STAGING PER NKF: MALE GFR INTERPRETATION: 20-49 YRS: [...] DESIRABLE: <130 MG/DL <110 MG/DL BORDERLINE-HIGH RISK: 130- 159 MG/DL 110-129 MG/DL HIGH RISK: >160 MG/DL >130 MG/DL *CHILDREN AND ADOLESCENTS REPRESENTS INDIVIDUALA AGED 2-19 YEARS EXCLUSIVE. Alt (SGPT) 8 U/L 0-41 [facility] ([facility] CHRONIC KIDNEY DISEASE STAGING PER NKF: MALE GFR INTERPRETATION: 20-49 YRS: [...] DESIRABLE: <130 MG/DL <110 MG/DL BORDERLINE-HIGH RISK: 130- 159 MG/DL 110-129 MG/DL HIGH RISK: >160 MG/DL >130 MG/DL *CHILDREN AND ADOLESCENTS REPRESENTS INDIVIDUALA AGED 2-19 YEARS EXCLUSIVE. Ast (Sgot) 12 U/L 0-40 [facility] ([facility] CHRONIC KIDNEY DISEASE STAGING PER NKF: MALE GFR INTERPRETATION: 20-49 YRS: [...] DESIRABLE: <130 MG/DL <110 MG/DL BORDERLINE-HIGH RISK: 130- 159 MG/DL 110-129 MG/DL HIGH RISK: >160 MG/DL >130 MG/DL *CHILDREN AND ADOLESCENTS REPRESENTS INDIVIDUALA AGED 2-19 YEARS EXCLUSIVE. Anion Gap 13 mmol/L [facility] ([facility] CHRONIC KIDNEY DISEASE STAGING PER NKF: MALE GFR INTERPRETATION: 20-49 YRS: [...] DESIRABLE: <130 MG/DL <110 MG/DL BORDERLINE-HIGH RISK: 130- 159 MG/DL 110-129 MG/DL HIGH RISK: >160 MG/DL >130 MG/DL *CHILDREN AND ADOLESCENTS REPRESENTS INDIVIDUALA AGED 2-19 YEARS EXCLUSIVE. Tbili 0.29 mg/dL 0.0-1.2 [facility] ([facility] CHRONIC KIDNEY DISEASE STAGING PER NKF: MALE GFR INTERPRETATION: 20-49 YRS: [...] DESIRABLE: <130 MG/DL <110 MG/DL BORDERLINE-HIGH RISK: 130- 159 MG/DL 110-129 MG/DL HIGH RISK: >160 MG/DL >130 MG/DL *CHILDREN AND ADOLESCENTS REPRESENTS INDIVIDUALA AGED 2-19 YEARS EXCLUSIVE. Osmolality-Calculated 279.8 CALC MED ENT ([facility] CHRONIC KIDNEY DISEASE STAGING PER NKF: MALE GFR INTERPRETATION: 20-49 YRS: [...] DESIRABLE: <130 MG/DL <110 MG/DL BORDERLINE-HIGH RISK: 130- 159 MG/DL 110-129 MG/DL HIGH RISK: >160 MG/DL >130 MG/DL *CHILDREN AND ADOLESCENTS REPRESENTS INDIVIDUALA AGED 2-19 YEARS EXCLUSIVE. eGFR 74 # MED[facility]IN ( [facility] CHRONIC KIDNEY DISEASE STAGING PER NKF: MALE GFR INTERPRETATION: 20-49 YRS: [...] DESIRABLE: <130 MG/DL <110 MG/DL BORDERLINE-HIGH RISK: 130- 159 MG/DL 110-129 MG/DL HIGH RISK: >160 MG/DL >130 MG/DL *CHILDREN AND ADOLESCENTS REPRESENTS INDIVIDUALA AGED 2-19 YEARS EXCLUSIVE. eGFR Non-Afr. [place] 64 # [facility] ([facility] CHRONIC KIDNEY DISEASE STAGING PER NKF: MALE GFR INTERPRETATION: 20-49 YRS: [...] DESIRABLE: <130 MG/DL <110 MG/DL BORDERLINE-HIGH RISK: 130- 159 MG/DL 110-129 MG/DL HIGH RISK: >160 MG/DL >130 MG/DL *CHILDREN AND ADOLESCENTS REPRESENTS INDIVIDUALA AGED 2-19 YEARS EXCLUSIVE. ID Date Data Source [id number] 12/29/2019 11:38:00 AM EDT [facility] ([facility] Name Value Range Interpretation Code Description Data Malathi rce(s) Supporting Document(s) Cholesterol [Mass/volume] in Serum or Plasma 164 mg/dL 100-199 [facility] ([facility] Cholesterol in HDL [Mass/volume] in Serum or Plasma 43 mg/dL [facility] ([facility] Cholesterol in VLDL [Mass/volume] in Serum or Plasma by calc ulation 19 mg/dL 5-40 [facility] Triglyceride [Mass/volume] in Serum or Plasma 96 mg/dL 0-149 [facility] ([facility] Comment: Laboratory test result [facility] ([facility] Cholesterol in LDL [Mass/volume] in Serum or Plasma by calcu lation 102 mg/dL 0-99 Above high normal [facility] ([facility] ID Date Data Source [id number] 12/29/2019 11:38:00 AM EDT [facility] ([facility] Name Value Range Interpretation Code Description Data Malathi rce(s) Supporting Document(s) Glucose [Mass/volume] in Serum or Plasma 141 mg/dL 65-99 Above high normal [facility] ([facility] BUN 15 mg/dL 8-27 [facility] Creatinine [Mass/volume] in Serum or Plasma 0.94 mg/dL 0.57-1.00 [facility] ([facility] eGFR If NonAfricn Am 61 mL/min/1.73 [facility] ([facility] eGFR If Africn Am 71 mL/min/1.73 MED ENT ([facility] Urea nitrogen/Creatinine [Mass Ratio] in Serum or Plasma 16 1 2-28 [facility] ([facility] Sodium [Moles/volume] in Serum or Plasma 139 mmol/L 134-144 [facility] ([facility] Potassium [Moles/volume] in Serum or Plasma 4.8 mmol/L 3.5-5.2 [facility] ([facility] Chloride [Moles/volume] in Serum or Plasma 102 mmol/L 96-106 [facility] ([facility] Carbon dioxide, total [Moles/volume] in Serum or Plasma 20 mmol/L 20 -29 [facility] ([facility] Calcium [Mass/volume] in Serum or Plasma 9.4 mg/dL 8.7-10.3 [facility] ([facility] Protein [Mass/volume] in Serum or Plasma 6.7 g/dL 6.0-8.5 [facility] ([facility] Albumin [Mass/volume] in Serum or Plasma 4.0 g/dL 3.7-4.7 [facility] ([facility] Albumin/Globulin [Mass Ratio] in Serum or Plasma 1.5 1.2-2.2 [facility] ([facility] Globulin [Mass/volume] in Serum by calculation 2.7 g/dL 1.5-4.5 [facility] ([facility] Bilirubin.total [Mass/volume] in Serum or Plasma 0.4 mg/dL 0.0-1.2 [facility] ([facility] Alkaline phosphatase [Enzymatic activity/volume] in Serum or Plasma 79 IU/L 39-117 [facility] Aspartate aminotransferase [Enzymatic activity/volume] in Serum or Plasma 16 IU/L 0-40 [facility] Alanine aminotransferase [Enzymatic activity/volume] in Seru m or Plasma 11 IU/L 0-32 [facility] ([facility] ID Date Data Source [id number] 12/29/2019 11:36:00 AM EDT [facility] ([facility] Name Value Range Interpretation Code Description Data Malathi rce(s) Supporting Document(s) Alb 10 mg/L 1-30 [facility] ([facility] Creatinine, Urine 100 mg/dL 10-300 [facility] ([facility] A/C Ratio Laboratory test result ME DENT ([facility] ID Date Data Source [id number] 12/29/2019 11:36:00 AM EDT [facility] ([facility] Name Value Range Interpretation Code Description Data Malathi rce(s) Supporting Document(s) Thyrotropin [Units/volume] in Serum or Plasma 3.775 ulU/mL 0.60-4.8 [facility] ([facility] ID Date Data Source [id number] 12/29/2019 11:35:00 AM EDT [facility] ([facility] Name Value Range Interpretation Code Description Data Malathi rce(s) Supporting Document(s) WBC 6.5 10E3/uL 4.1-10.9 [facility] ([facility] NORMAL RANGES Age WBC RBC HGB HCT [...] HCT IS 5% LESS SOURCE FOR DATA: Belly Ballot 1800 OPERATION MANUAL( AUTOMATED BLOOD COUNTS AND DIFF.) APPENDIX B-3 RBC 4.12 10E6/uL 4.20-6.30 Below low normal [facility] ([facility] NORMAL RANGES Age WBC RBC HGB HCT [...] HCT IS 5% LESS SOURCE FOR DATA: Belly Ballot 1800 OPERATION MANUAL( AUTOMATED BLOOD COUNTS AND DIFF.) APPENDIX B-3 HCT 35.9 % 37.0-51.0 Below low normal [facility] ( [facility] NORMAL RANGES Age WBC RBC HGB HCT [...] AUTOMATED BLOOD COUNTS AND DIFF.) APPENDIX B-3 HGB 12.2 g/dL 12.0-18.0 [facility] ([facility] NORMAL RANGES Age WBC RBC HGB HCT [...] AUTOMATED BLOOD COUNTS AND DIFF.) APPENDIX B-3 MCH 29.6 pg 26.0-32.0 [facility] ([facility] NORMAL RANGES Age WBC RBC HGB HCT [...] HCT IS 5% LESS SOURCE FOR DATA: Belly Ballot 1800 OPERATION MANUAL( AUTOMATED BLOOD COUNTS AND DIFF.) APPENDIX B-3 MCV 87.1 fL 80.0-97.0 [facility] NORMAL RANGES Age WBC RBC HGB HCT [...] HCT IS 5% LESS SOURCE FOR DATA: Belly Ballot 1800 OPERATION MANUAL( AUTOMATED BLOOD COUNTS AND DIFF.) APPENDIX B-3 PLT 240 10E3/uL 140-440 [facility] ([facility] NORMAL RANGES Age WBC RBC HGB HCT MCV PLT Adult M 4.1-10.9 4.20-6.30 12.0-18.0 37.0-51.0 80-97 140-440 Adult F 4.1-10.9 4.04-5.48 12.0-18.0 37.0-51.0 140440 0 -1 Yr 5.0-20.0 3.9-5.9 15-18 MV: [...] HCT IS 5% LESS SOURCE FOR DATA: Belly Ballot 1800 OPERATION MANUAL( AUTOMATED BLOOD COUNTS AND DIFF.) APPENDIX B-3 MCHC 34.0 g/dL 31.0-36.0 [facility] NORMAL RANGES Age WBC RBC HGB HCT MCV PLT Adult M 4.1-10.9 4.20-6.30 12.0-18.0 37.0-51.0 140440 Adult F 4.1-10.9 4.04-5.48 12.0-18.0 37.0-51.0 140440 0 -1 Yr 5.0-20.0 3.9-5.9 15-18 MV: [...] HCT IS 5% LESS SOURCE FOR DATA: Belly Ballot 1800 OPERATION MANUAL( AUTOMATED BLOOD COUNTS AND DIFF.) APPENDIX B-3 RDW-CV 14.3 % 11.5-14.5 [facility] ([facility] NORMAL RANGES Age WBC RBC HGB HCT [...] AUTOMATED BLOOD COUNTS AND DIFF.) APPENDIX B-3 Neut% 77.2 % 37.0-92.0 [facility] ([facility] NORMAL RANGES Age WBC RBC HGB HCT [...] AUTOMATED BLOOD COUNTS AND DIFF.) APPENDIX B-3 Lym% 17.1 % 10.0-58.5 [facility] ([facility] NORMAL RANGES Age WBC RBC HGB HCT [...] HCT IS 5% LESS SOURCE FOR DATA: Belly Ballot 1800 OPERATION MANUAL( AUTOMATED BLOOD COUNTS AND DIFF.) APPENDIX B-3 Neut# 5.0 % 2.0-7.8 [facility] NORMAL RANGES Age WBC RBC HGB HCT [...] HCT IS 5% LESS SOURCE FOR DATA: Belly Ballot 1800 OPERATION MANUAL( AUTOMATED BLOOD COUNTS AND DIFF.) APPENDIX B-3 MXD% 5.7 % 0.1-24.0 [facility] NORMAL RANGES Age WBC RBC HGB HCT MCV PLT Adult M 4.1-10.9 4.20-6.30 12.0-18.0 37.0-51.0 80- 140-440 Adult F 4.1-10.9 4.04-5.48 12.0-18.0 37.0-51.0 80 140-440 0 -1 Yr 5.0-20.0 3.9-5.9 15-18 [...] HCT IS 5% LESS SOURCE FOR DATA: Belly Ballot 1800 OPERATION MANUAL( AUTOMATED BLOOD COUNTS AND DIFF.) APPENDIX B-3 Lym# 1.1 10E3/uL 0.6-4.1 [facility] ([facility] NORMAL RANGES Age WBC RBC HGB HCT MCV PLT Adult M 4.1-10.9 4.20-6.30 12.0-18.0 37.0-51.0 80 140-440 Adult F 4.1-10.9 4.04-5.48 12.0-18.0 37.0-51.0 80 140-440 0 -1 Yr 5.0-20.0 3.9-5.9 15-18 [...] HCT IS 5% LESS SOURCE FOR DATA: Belly Ballot 1800 OPERATION MANUAL( AUTOMATED BLOOD COUNTS AND DIFF.) APPENDIX B-3 MXD# 0.4 10E3/uL 0.0-1.8 [facility] ([facility] NORMAL RANGES Age WBC RBC HGB HCT [...] AUTOMATED BLOOD COUNTS AND DIFF.) APPENDIX B-3 MPV 9.9 fL 9.0-13.0 [facility] ([facility] NORMAL RANGES Age WBC RBC HGB HCT [...] AUTOMATED BLOOD COUNTS AND DIFF.) APPENDIX B-3 ID Date Data Source [id number] 12/29/2019 11:35:00 AM EDT MED[facility] ([facility] Name Value Range Interpretation Code Description Data Malathi rce(s) Supporting Document(s) Hemoglobin A1c/Hemoglobin.total in Blood 6.8 % 4.40-6.10 Above high normal [facility] ([facility] NORMAL RANGES Age WBC RBC HGB HCT [...] HCT IS 5% LESS SOURCE FOR DATA: Belly Ballot 1800 OPERATION MANUAL( AUTOMATED BLOOD COUNTS AND DIFF.) APPENDIX B-3 ID Date Data Source [id number] 10/19/2019 03:30:00 AM EDT [facility] 1 OrderSheet [facility] Emergency Department [address] [place] [address] Phone #: ext- [phone] 10/19/2019 03:29 [id number] : 1950 Age: 69yWEIGHT:120.2 kg (M) HEIGHT:64 inches (S) BMI:45.5ALLERGIES: No Known Drug AllergyCHIEF COMPLAINT: chest painDIAGNOSIS: Chest painLAB ORDERSOrder Description Priority Entered Acknowledged InitialedUrinalysis (Clean STAT 03:57 10/19/2019 05:23 Tierra Thornton R.N. Physician;BNP STAT 03:57 10/19/2019 03:58 Ash Thornton R.N. Physician;CBC w Diff STAT 03:57 10/19/2019 03:58 Ash Thornton R.N. Physician;CMP STAT 03:57 10/19/2019 03:58 Ash Thornton R.N. Physician;D-Dimer STAT 03:57 10/19/2019 03:58 Ash Thornton R.N. Physician;Lipase STAT 03:57 10/19/2019 03:58 Ash Thornton R.N. Physician;Troponin-T STAT 03:57 10/19/2019 03:58 Ash Thornton R.N. Physician;Troponin-T STAT 06:11 10/19/2019 06:31 Otoniel Garcia R.N. Physician;DIAGNOSTIC STUDY ORDERSOrder Description Priority Entered Acknowledged InitialedChest Portable 1 STAT 03:57 10/19/2019 03:58 Sharonda Thornton R.N.(Oxygen?(No)) Physician; Reason for Study: Chest Pain 2 OrderSheet [facility] Emergency Department [address] [place] [address] Phone #: ext- [phone] 10/19/2019 03:29 [id number] Sex: F : 1950 Age: 69yCT CTA CHEST STAT 07:31 10/19/2019 07:35 Wendi Duncan(NONCOR) W Tre Reagan R.N.INC PP (Oxygen? M.D.;(Yes)) (IV?(Yes)) Reason for Study: Chest pain, palpitationsMEDICATION/IV/DRIP/FLUID ORDERSOrder Description Priority Entered Acknowledged InitialedMorphine IVP 2 mg 03:57 10/19/2019 04:07 Ash Thornton(NOW, HIGH ALERT Otoniel Reyes R.N.MEDICATIO N) Physician;Zofran 4 mg IVP X 1 04:00 10/19/2019 04:06 Ash Thorntondose: 4 mg (NOW Otoniel Reyes RJennieNJenniex1) Physician;Morphine IVP 2 mg 06:25 10/19/2019 06:32 Jose(NOW, HIGH ALERT Otoniel Tavarez R.N.MEDICATION) Physician;GENERAL ORDERSOrder Description Priority Entered Acknowledged InitialedEKG 03:57 10/19/2019 03:58 Ash Thornton R.N. Physician;Education Liaison 03:57 10/19/2019 03:58 Ash Thornton(continuous) Otoniel Reyes R.N. Physician;Pulse oximeter 03:57 10/19/2019 03:58 Ash Thornton(Continuous) Otoniel Reyes R.N. Physician;Saline Lock 03:57 10/19/2019 03:58 Ash Thornton R.N. Physician;EKG 06:22 10/19/2019 06:31 Otoniel Garcia R.N. Physician;[Electronically signed by Wendi Duncan R.N. (09:11 10/19/2019)][Electronically signed by Otoniel Reyes Physician (08:57 10/23/2019)][Electronically locked by Wendi Duncan R.N. (09:11 10/19/2019)] Name Value Range Interpretation Code Description Data Malathi rce(s) Supporting Document(s) ID Date Data Source [id number] 10/19/2019 03:30:00 AM EDT [facility] 1 Medication Reconciliation Report [facility] Emergency Department [address] [place] [address] Phone #: ext- [phone] 10/19/2019 03:29 Patient: CONCEPCIÓN CAO Sex: F : 1950 Age: 69yWeight: 120.2 kgHeight/Length: 64 in.BMI: 45.5ALLERGIES: No Known Drug AllergyThe patient's Home Medications are listed below:THE FOLLOWING MEDICATIONS NEED TO BE RECONCILED: Albuterol Sulfate Inhalation 1 unit dose, q6h, prn Amitriptyline HCl Oral (50 mg) 1 tablet, daily, at bedtime Aspirin 81 Oral, daily Bisoprolol Fumarate Oral (10 mg), daily busPIRone HCl Oral (15 mg) 1 tablet, 2x a day Cetirizine HCl Oral 10 mg, daily Levothyroxine Sodium Intravenous Levothyroxine Sodium Oral (75 mcg), daily LORazepam Oral 1 mg, 3x a day, prn metFORMIN HCl Oral (850 mg), daily Montelukast Sodium Oral (10 mg) 1 tablet, daily Nasonex Nasal 2 sprays, daily Ramipril Oral (5 mg), daily Rosuvastatin Calcium Oral (10 mg), daily Ventolin HFA Inhalation, prn 2 Medication Reconciliation Report [facility] Emergency Department [address] [place] [address] Phone #: ext- [phone] 10/19/2019 03:29 Patient: CONCEPCIÓN CAO Sex: F : 1950 Age: 69yThe source(s) of the original Home Medication information:Not obtained.The following Medications were given to the patient in the Emergency Department:Ondansetron [IVP] IVP 4 mg, administered: 10/19/2019 4:06:00 AMMorphine [IVP] IVP 2 mg, adm inistered: 10/19/2019 4:07:00 AMMorphine [IVP] IVP 2 mg, administered: 10/19/2019 6:31:00 AMThe following Medications were prescribed to the patient:None. Name Value Range Interpretation Code Description Data Malathi rce(s) Supporting Document(s) ID Date Data Source [id number] 10/19/2019 03:30:00 AM EDT [facility] 1 Medication Administration Record [facility] Emergency Department [address] [place] [address] Phone #: [phone] 10/19/2019 03:29 Patient: CONCEPCIÓN CAO Sex: F : 1950 Age: 69yWeight: 120.2 kgHeight/Length: 64 inBMI: 45.5ALLERGIES: No Known Drug Allergy Date/Time Medication Administered Medication OrderedGiven MORPHINE [IVP] Morphine IVP 2 mg (NOW, HIGH04:10/19/2019 Dose: 2 mg IVP ALERT MEDICATION)Ash Thornton R.N. Site: #1 left ACGiven ONDANSETRON [IVP] Zofran 4 mg IVP X 1 dose: 4 mg04:10/19/2019 Dose: 4 mg IVP (NOW x1)Ash Thornton R.N. Site: #1 left ACGiven MORPHINE [IVP] Morphine IVP 2 mg (NOW, HIGH06:31 10/19/2019 Dose: 2 mg IVP ALERT MEDICATION)Corby Garcia R.N. Site: #1 left Name Value Range Interpretation Code Description Data Malathi rce(s) Supporting Document(s) ID Date Data Source [id number] 10/19/2019 03:30:00 AM EDT [facility] 1 General Instructions [facility] Emergency Department [address] [place] [address] Phone #: ext- [phone] 10/19/2019 03:29 Patient: CONCEPCIÓN CAO Sex: F : 1950 Age: 69yPrecordial chest pain characterized as "discomfort", "pressure" and "tightn ess"(R/O ACS).(Electronically signed by Otoniel Reyes, Physician 10/23/2019 08:57) Name Value Range Interpretation Code Description Data Malathi rce(s) Supporting Document(s) ID Date Data Source [id number] 10/19/2019 03:30:00 AM EDT [facility] 1 Clinical Report - Nurses [facility] Emergency Department [address] [place] [address] Phone #: ext- [phone] 10/19/2019 03:29 Patient: CONCEPCIÓN CAO Sex: F : 1950 Age: 69yTRIAGEArrived by EMS, and from home (CARS). Historian: patient.Triage time: 03:31 10/19/2019. Acuity: LEVEL 2.Chief Complaint: CHEST PAIN and LEFT ARM PAIN (x4 hours).Alert. No acute distress.( received 324mg ASA and 1 dose SL nitro via EMS).QUICK SEPSIS RELATED ORGAN FAILURE ASSESSMENT SCORE: 0. No altered mentation (GCS lessthan 15), respiratory rate not greater than or equal to 22 breaths a minute or systolic blood pressure notless than or equal to 100 mmhg.SEPSIS SCREEN: SIRS Screen negative: heart rate greater than 90. Sepsis Screen negative. Nosuspected or confirmed signs of infection present. Temperature not greater than 38.3 degrees C (100.9degrees F) or less than 36 degrees C (96.8 degrees F). Respiratory rate not greater than 20. --03:466 Ash Thornton R.N.03:44 10/19/19. BP: 122/68. MAP: 86. HR: 89. RR: 20. O2 saturation: 96% on room air. Temp: 99.1 F(oral). Pain level now: 12/20. --03:46 10/19/19 Ash Thornton R.N.Weight: 120.2 kg measured. Height/Length: 64 inches Per Patient. BMI: 45.5. --03:45 10/19/19 Ash Thornton R.N.MedicationsLORazepam Oral 1 mg, 3x a day as needed. --03:47 10/19/19 Wendi Duncan R.N. Amitriptyline HCl Oral (Tablet 50 mg) 1 tablet, daily at bedtime. --03:47 10/19/19 Wendi Duncan R.N. busPIRone HCl Oral (Tablet 15 mg) 1 tablet, 2x a day. --03:47 10/19/19 Wendi Duncan R.N. Bisoprolol Fumarate Oral (Tablet 10 mg), daily. --03:48 10/19/19 Wendi Duncan R.N. Aspirin 81 Oral, daily. --03:48 10/19/19 Ash Thornton R.N. Ventolin HFA Inhalation, as needed. --03:48 10/19/19 Ash Thornton R.N. Rosuvastatin Calcium Oral (Tablet 10 mg), daily. --08:32 10/19/19 Wendi Duncan R.N. Nasonex Nasal 2 sprays, daily. --08:33 10/19/19 Wendi Duncan R.N. Montelukast Sodium Oral (Tablet 10 mg) 1 tablet, daily. --08:33 10/19/19 Wendi Duncan R.N. Levothyroxine Sodium Intravenous. --08:34 10/19/19 Wendi Duncan R.N. Levothyroxine Sodium Oral (Tablet 75 mcg), daily. --08:34 10/19/19 Wendi Duncan R.N. Cetirizine HCl Oral 10 mg, daily. --08:35 10/19/19 Wendi Duncan R.N. metFORMIN HCl Oral (Tablet 850 mg), daily. --08:35 10/19/19 Wendi Duncan R.N. Albuterol Sulfate Inhalation 1 unit dose, q6h as needed. --08:36 10/19/19 Wendi Duncan R.N. Ramipril Oral (Capsule 5 mg), daily. --08:37 10/19/19 Wendi Duncan R.N. 2 Clinical Report - Nurses [facility] Emergency Department [address] [place] [address] Phone #: ext- [phone] 10/19/2019 03:29 Patient: CONCEPCIÓN CAO [facility]#: [id number] Sex: F : 1950 Age: 69yThe following entry was struck and corrected by Wendi Duncan R.N., 08:36 (10/19/19) Reason for correction - other(correction).Bisoprolol Fumarate Oral, daily. --03:48 10/19/19 Ash Thornton R.N.The following entry was struck and corrected by Wendi Duncan R.N., 08:36 (10/19/19) Reason for correction -other(correction).Amitriptyline HCl Oral, at bedtime. --03:47 10/19/19 sAh Thornton R.N.The following entry was struck and corrected by Wendi Duncan R.N., 08:35 (10/19/19) Reason for correction - other(correction).busPIRone HCl Oral, daily. --03:47 10/19/19 Ash Thornton R.N.The following entry was struck and corrected by Wendi Duncan R.N., 08:35 (10/19/19) Reason for correction -other(correction).LORazepam Oral, at bedtime. --03:47 10/19/19 Ash Thornton R.N. .AllergiesNo Known Drug Allergy. --03:47 10/19/19 Ash Thornton R.N.PROBLEMS:Fibromyalgia.Allergic Rhinitis.Asthma.COPD - Chronic Obstructive Pulmonary Disease.Insomnia.Depression.Anxiety Reaction.Hypertension. --03:50 10/19/19 Ash Thornton R.N.Back Pain. --03:50 10/19/19 Ash Thornton R.N.Sleep Apnea. --03:59 10/19/19 Ash Thornton R.N.ADDITIONAL SURGERIES:Cholecystectomy.Hysterectomy.Knee Surgery (Left). --03:50 10/19/19 Ash Thornton R.N.HistorySOCIAL HX: Never smoker. No alcohol use or drug use. She was offered HIV testing but declined.Patient education was provided. She was offered hepatitis C testing but declined. Patient education wasprovided. She has not traveled outside the [place]Infectious disease exposure: No infectious disease exposure. Has not had symptoms of fever, sore throat,difficulty breathing or cough.SELF HARM ASSESSMENT: Self harm assessment was performed. The patient answered "no" to thequestion(s) "Have you recently felt down, depressed, or hopeless?", "Do you have thoughts of harming orkilling yourself?", "Do you have a plan for harming or killing yourself?" and "Have you recently had thoughtsabout harming or killing others?". 3 Clinical Report - Nurses [facility] Emerge ncy Department [address] [place] [address] Phone #: ext- [phone] 10/19/2019 03:29 Patient: CONCEPCIÓN CAO Sex: F : 1950 Age: 69y ABUSE ASSESSMENT: Abuse assessment. Abuse denied. No suspicion of abuse. No report of abuse. NUTRITIONAL RISK ASSESSMENT: The nutritional risk assessment revealed no deficiencies. FUNCTIONAL ASSESSMENT: Functional assessment: no impairments noted. LEARNING NEEDS ASSESSMENT: The learning needs assessment revealed no barriers. FALL RISK ASSESSMENT: Fall risk assessment completed. No risk factors identified. SKIN INTEGRITY ASSESSMENT: Skin integrity risk assessment completed. No skin integrity risk identified. ANDERSON FALL SCALE: 35 ( 25 - 44 = Medium Risk). The patient has a secondary diagnosis, IV therapy/Heparin lock in place. The patient has no fall risks identified. The patient does not ambulate using crutches/cane/walker or furniture, denies a history of falling (immediate or within the last 3 months) and does not forget limitations. The patient's gait is not weak or impaired during transfer. --03:46 10/19/19 Ash Thornton R.N. Interventions Identification band on patient. To treatment room. --03:46 10/19/19 Ash Thornton R.N.PHYSICAL ASSESSMENTPatient gowned.GENERAL / NEURO / PSYCH: Alert. Oriented X 4. Appears in no acute distres s.HEENT: Mucous membranes are pink. Mucous membranes are not abnormal.RESPIRATORY: No respiratory distress. Respirations not labored. Chest pain reproducible. Sternaltenderness. The tenderness is diffuse. Breath sounds within normal limits. No decreased breath sounds,wheezes or crackles.CVS: No JVD or carotid bruit. Normal sinus rhythm noted. Heart sounds within normal limits. Pulseswithin normal limits. No abnormal heart sounds. Capillary refill less than 2 seconds but is not greaterthan 2 seconds.GI / : Abdomen soft. Abdominal tenderness diffusely and in the upper abdomen. No nausea noted.Normal bowel sounds. No emesis noted. No abdominal distention.EXTREMITIES: No lower extremity edema.SKIN: Skin is warm and dry. Normal skin turgor. Skin is non-tender. No pallor noted, cyanosis ordiaphoresis noted. Skin not cool to touch. --03:52 10/19/19 Ash Thornton R.N. RESPIRATORY: ( pt states she has a hx of sleep apnea, and has had to use a c-pap machine in the past. however, her machine quite working years ago, and she has not had one since). --04:42 10/19/19 Corby Garcia R.N.NURSING PROGRESS NOTES 4 Clinical Report - Nurses [facility] Emergency Department [address] [place] [address] Phone #: ext- [phone] 10/19/2019 03:29 Patient: CONCEPCIÓN CAO Sex: F : 1950 Age: 69yCardiac monitor, NIBP monitor and pulse oximeter placed on patient. Head of bed elevated 30 degrees.Reassurance given to the patient. Patient identifiers checked. Call light placed in reach of patient. Siderails up x 2. Bed placed in lowest position. Brakes of bed on. Patient ready for evaluation- ED physiciannotified. --03:52 10/19/19 Ash Thornton R.N.EKG time: (03:38 10/19/2019). --03:53 10/19/19 Ash Thornton R.N.03:50 10/19/2019 Site #1 started via IV in the left antecubital space with an 18g angiocath, with aseptictechnique and good blood return; one attempt. Blood drawn: rainbow set. Labeled in the presence of thepatient and sent to the lab. Saline lock flushed with 10 mL saline. --03:53 10/19/19 Ash Thornton R.N.04:06 10/19/2019 Ondansetron IVP 4 mg given over 2 minute(s) via site #1. Allergies verified andconfirmed 5 rights. IV patency established. IV site checked: no pain, redness, or swelling. IV flushedthoroughly pre- and post-medication administration. IVP given by RN. Information reviewed with patientincluding reason for taking this medication, signs of allergic reaction and precautions. Verbalizesunderstanding. --04:06 10/19/19 Ash Thornton R.N.04:07 10/19/2019 Morphine IVP 2 mg given over 2 minute(s) via site #1. Allergies verified and confirmed 5rights. IV patency established. IV site checked: no pain, redness, or swelling. IV flushed thoroughly pre-and post-medication administration. IVP given by RN. Information reviewed with patient including reasonfor taking this medication, signs of allergic reaction, precautions and sedative warning. Verbalizesunderstanding. --04:07 10/19/19 Ash Thornton R.N.04:00 10/19/19. BP: 111/75. MAP: 87. HR: 80. RR: 18. O2 saturation: 94% on room air. --04:14 10/19/19Ash guerra R.N.04:15 10/19/19. Pain level now: 12/20. Additional comments: reproducible sternal chest pain. --04:156 Ash Thornton R.N.04:33 10/19/19. BP: 125/58. MAP: 80. HR: 83. RR: 16. O2 saturation: 94%. Temp: 98.2 F. Pain level now:12/20. --04:35 10/19/19 Corby Garcia R.N.Reassessment acuity: LEVEL 3. The patient reports no complaints, she is calm and resting quietly andshe has had no adverse reaction. Overall patient status is the same- she states feels the same.RESPIRATORY: No respiratory distress. Breath sounds normal.CVS: Normal sinus rhythm noted.SKIN: Skin is warm and dry. Skin color within normal limits. Two patient identifiers checked. Call lightplaced in reach. Side rails up x 2. Bed placed in lowest position. Brakes of bed on. --04:35 10/19/19Corby rand R.N.04:43 10/19/2019 Morphine IVP Response: no adverse reaction pain is improving. Symptoms haveimproved the patient feels better. (pt reports pain has improved from 910 to 8/10 since having beenmedicated.). --04:43 10/19/19 Corby Garcia R.N. 5 Clinical Report - Nurses [facility] Emergency Department [address] [place] [address] Phone #: ext- [phone] 10/19/2019 03:29 Patient: CONCEPCIÓN CAO Sex: F : 1950 Age: 69y04:44 10/19/2019 Ondansetron IVP Response: no adverse reaction symptoms have improved the patientfeels better. (pt denies nausea at this time.). --04:44 10/19/19 Corby Garcia R.N.Patient ID band checked for patient name and birthdate: patient confirmed. Instructions provided to collectclean catch urine and patient verbalized understanding. Clean catch urine collected with return ofyellow- colored clear urine; odor is normal; sample sent to lab for urinalysis. Specimen labeled in thepresence of the patient. --05:25 10/19/19 Ash Thornton R.N.05:00 10/19/19. BP: 124/59. MAP: 80. HR: 82. RR: 20. O2 saturation: 93% on room air. --05:26 10/19/19Ash guerra R.N.06:00 10/19/19. BP: 109/50. MAP: 69. HR: 80. RR: 20. O2 saturation: 92% on room air. --06:02 10/19/19Ash guerra R.N.Cardiac rhythm: normal sinus rhythm; occasional PVCs. The patient reports no complaints, she is calmand resting quietly and she has had no adverse reaction.RESPIRATORY: No respiratory distress.SKIN: Skin is warm and dry. Skin color within normal limits. Patient identifiers checked. Call lightplaced in reach of patient. Side rails up x 2. Bed placed in lowest position. Brakes of bed on. --06: Ash Thornton R.N.06:19 10/19/19. BP: 109/50. MAP: 69. HR: 90. RR: 16. O2 saturation: 93%. Temp: 97.2 F. Pain level now:11/19. --06:21 10/19/19 Corby Garcia R.N.Cardiac rhythm: normal sinus rhythm. Blood samples drawn. Patient gowned. Head of bed elevated.Reassessment acuity: LEVEL 3.Rounding: Pain: assessed pain level. Position: repositioned. Personal care / toileting: denies toiletingneeds and mouth care. Proximity of possessions / care items: call light within easy reach. Plug ins: locatedall cords, tubes, and lines to prevent fall hazard. Set expectations: advised patient of rounding protocoltiming and asked if they needed anything else at this time.RESPIRATORY: No respiratory distress. Breath sounds normal.CVS: Normal sinus rhythm noted.SKIN: Skin is warm and dry. Skin color within normal limits. Two patient identifiers checked. Call lightplaced in reach. Side rails up x 2. Bed placed in lowest position. Brakes of bed on. --06:21 10/19/19Corby rand R.N.06:31 10/19/2019 Morphine IVP 2 mg given over 2 minute(s) via site #1. Allergies verified and confirmed 5rights. IV patency established. IV site checked: no pain, redness, or swelling. IV flushed thoroughly pre-and post-medication administration. IVP given by RN. Information reviewed with patient including reasonfor taking this medication, signs of allergic reaction, precautions and sedative warning. Verbalizesunderstanding. --06:32 10/19/19 Corby Garcia R.N.EKG time: (06:29 10/19/2019). EKG was performed by a nurse and shown to the ED physician. --06:32 6 Clinical Report - Nurses [facility] Emergency Department [address] [place] [address] Phone #: ext- [phone] 10/19/2019 03:29 Patient: CONCEPCIÓN CAO Sex: F : 1950 Age: 69y 10/19/19 Ash Thornton R.N. 07:00 10/19/19. BP: 118/48. MAP: 71. HR: 73. RR: 16. O2 saturation: 92%. Temp: 97.4 F. Pain level now: 11/19. --07:01 10/19/19 Corby Garcia R.N. Reassessment acuity: LEVEL 3. RESPIRATORY: No respiratory distress. Breath sounds normal. CVS: The patient reports left-sided chest pain. Normal sinus rhythm noted. SKIN: Skin is warm and dry. Skin color within normal limits. Two patient identifiers checked. Call light placed in reach. Side rails up x 2. Bed placed in lowest position. Brakes of bed on. --07:02 10/19/19 Corby Garcia R.N. Patient waiting for (orders for admission). --07:40 10/19/19 Wendi Duncan R.N. 07:39 10/19/19. BP: 105/52. MAP: 69. HR: 79. RR: 16. O2 saturation: 96% on room air. --07:40 10/19/19 Wendi Duncan R.N. Patient transported to CT by wheelchair with tech. --08:06 10/19/19 Wendi Duncan R.N. 08:27 10/19/19. Patient returned from CT by wheelchair with tech. --08:37 10/19/19 Wendi Duncan R.N. ( resting at present). --08:41 10/19/19 Wendi Duncan R.N. 08:00 10/19/19. BP: 112/79. MAP: 90. HR: 79. RR: 16. O2 saturation: 94% on room air. --08:41 10/19/19 Wendi Duncan R.N. Patient waiting for admit bed. --08:41 10/19/19 Wendi Duncan R.N. 08:41 10/19/19. BP: 118/62. MAP: 80. HR: 71. RR: 15. O2 saturation: 94% on room air. --08:41 10/19/19 Wendi Duncan R.N.DISPOSITION / DISCHARGE Disposition: observation in the Acute Inpatient Unit, Monitored. Transported via stretcher by nurse with monitor and mask. Report was given to a nurse in person, at bedside and via visit overview. Report included information regarding patient's treatment, allergies and condition including: recent changes, current and abnormal vital signs and abnormal labs. Report included treatment information regarding medications given or pending. All questions were answered. Report was acknowledged and care was transferred. (ken). Bed obtained and ready. --09:10/19/19 Wendi Duncan R.N. 09:00 10/19/19. BP: 110/52. MAP: 71. HR: 77. RR: 16. O2 saturation: 94%. Temp: 97.4 F (oral). Pain level now: 0/10. --09:07 10/19/19 Wendi Duncan R.N. 7 Clinical Report - Nurses [facility] Emergency Department [address] [place] [address] Phone #: ext- [phone] 10/19/2019 03:29 [id number]: [facility] 1950 Age: 69yLocked/Released at 10/19/2019 09:11 by Wendi Duncan R.N. Name Value Range Interpretation Code Description Data Malathi rce(s) Supporting Document(s) ID Date Data Source [id number] 0001 10/19/2019 03:30:00 AM EDT [facility] 1 Clinical Report - Physicians/Mid Levels [facility] Emergency Department [address] [place] [address] Phone #: ext- [phone] 10/19/2019 03:29 Patient: CONCEPCIÓN CAO Sex: F : 1950 Age: 69y Time Seen: 03:37 10/19/2019. Arrived- By ambulance. Historian- EMS personnel. Disposition decision: 07:01 10/19/2019.HISTORY OF PRESENT ILLNESS Chief Complaint: CHEST PAIN. It is described as pressure, tightness, burning, aching, sharp, "pain" and well localized and it is described as located in the central chest area and left arm. This started about 4 hours ago and is still present. It was abrupt in onset. Onset during light activity. At its maximum, severity described as 10 / 10. When seen in the E.D., severity described as 8 / 10. Modifying factors- worsened by exertion and movement. No nausea, vomiting, difficulty breathing or diaphoresis. Similar symptoms previously. Patient has had similar symptoms occasionally. Recent medical care: Not recently seen/assessed.REVIEW OF SYSTEMSNo fever, chills, cough, pedal edema or calf pain. No missed periods, abnormal bleeding, vaginaldischarge, fainting episodes or headache. No sore throat, blurred vision, abdominal pain, black stools ordifficulty with urination. No skin rash, enlarged lymph nodes, joint pain or bloody stools.PAST HISTORYPast history not negative. See nurses notes. Hypertension. Lung disease. Other disease. Bouts ofchest painFibromyalgiaAllergic rhinitisAsthmaCOPDInsomniaDepression / AnxietyBack pain. Surgeries: Cholecystectomy. Had hysterectomy. Left knee surgery. (Cardiac cath many years ago - No stents). Medications: Ramipril Oral (Capsule 5 mg), daily. Albuterol Sulfate Inhalation 1 unit dose, q6h as needed. metFORMIN HCl Oral (Tablet 850 mg), daily. Cetirizine HCl Oral 10 mg, daily. Levothyroxine Sodium Oral (Tablet 75 mcg), daily. Levothyroxine Sodium Intravenous. Montelukast Sodium Oral (Tablet 10 mg) 1 tablet, daily. 2 Clinical Report - Physicians/Mid Levels [facility] Emergency Department [address] [place] [address] Phone #: ext- [phone] 10/19/2019 03:29 Patient: CONCEPCIÓN CAO Sex: F : 1950 Age: 69y Nasonex Nasal 2 sprays, daily. Rosuvastatin Calcium Oral (Tablet 10 mg), daily. Ventolin HFA Inhalation, as needed. Aspirin 81 Oral, daily. Bisoprolol Fumarate Oral (Tablet 10 mg), daily. busPIRone HCl Oral (Tablet 15 mg) 1 tablet, 2x a day. Amitriptyline HCl Oral (Tablet 50 mg) 1 tablet, daily at bedtime. LORazepam Oral 1 mg, 3x a day as needed. Allergies: No Known Drug Allergy.SOCIAL HISTORYNever smoker. No alcohol use or drug use. No recent travel.ADDITIONAL NOTESThe nursing notes have been reviewed with agreement regarding the chief complaint, HPI, ROS, PMH andpatient medications and allergies.PHYSICAL EXAMVital Signs: 10/19/2019 03:44 BP: 122/68. MAP: 86. HR: 89. RR: 20. O2 saturation: 96% on room air.Temp: 99.1 F. Pain level now: 8/10. Have been reviewed and appear to be correct. Blood pressurenormal. Heart rate normal. Respiratory rate normal. Temperature normal. Oxygen saturation normal.Appearance: Alert. Oriented X3. Anxious. Appears to be in pain. Patient in moderate distress. Indistress.Eyes: Pupils equal, round and reactive to light. Eyes normal inspection.ENT: Nose normal. Pharynx normal. (Edentulous).Neck: Normal inspection. Neck supple.CVS: Normal heart rate and rhythm. Heart sounds normal. Pulses normal.Respiratory: No respiratory distress. Chest tender. Chest pain reproducible with palpation of thecostochondral junction and sternum. Painless inspiration. Breath sounds normal.Abdomen: Soft and nontender. Bowel sounds normal. No organomegaly. No mass. Obese.Back: Normal external inspection.Skin: Skin warm and dry. Normal skin color. No rash. Normal skin turgor.Extremities: Extremities exhibit normal ROM. No lower extremity edema.Neuro: Oriented X 3. No motor deficit. No sensory deficit.LABS, X-RAYS, AND EKGEKG: Normal EKG.Laboratory Tests: Laboratory tests have been ordered, with results reviewed and considered in themedical decision making process. EKG: (LAWRENCE: 10/19/2019 06:22) ( [facility] 10/19/[place] 06:48) In Progress Troponin-T: (LAWRENCE: 10/19/2019 06:14) ( [facility] 10/19/2019 06:56) Final results Test Result Flag Units (Reference) 3 Clinical Report - Physicians/Mid Levels [facility] Emergency Department [address] [place] [address] Phone #: ext- [phone] 10/19/2019 03:29 [id number] Sex[facility] F : 1950 Age: 69y TROPONIN T 0.01 NG/ML (0.00 - 0.10) TROPONIN T0.1 ng/ml Recommended as the clinical threshold value forTroponin T.Urinalysis: (LAWRENCE: 10/19/2019 05:10) ( [facility] 10/19/2019 05:20) Final results Test Result Flag Units (Reference) URINALYSIS URINALYSIS SOURCE R COLOR yellow (NORMAL: Yello CLARITY clear (NORMAL: Clear SPEC GRAVITY 1.015 (1.001 - 1.030 pH 6 (5 - 9) GLUCOSE NORM (NORMAL: Negat BILIRUBIN NEG (NORMAL: Negat KETONE NEG (NORMAL: Negat PROTEIN NEG (NORMAL: Negat NITRITE NEG (NORMAL: Ne gat BLOOD NEG (NORMAL: Negat LEUK EST NEG (NORMAL: Negat UROBILINOGEN NOR (less than 1.0 MICROSCOPIC Not IndicateBNP: (LAWRENCE: 10/19/2019 03:45) ( [facility] 10/19/2019 04:28) Final results Test Result Flag Units (Reference) BNP 291 H PG/ML (0 - 125)CBC w Diff: (LAWRENCE: 10/19/2019 03:45) ( [facility] 10/19/2019 04:10) Final results Test Result Flag Units (Reference) CBC W/AUTOMATED DIFF COMPLETE BLOOD COUNT WBC 8.3 10/uL (4.2 - 11.0) RBC 4.34 10/uL (4.20 - 5.40) HEMOGLOBIN 12.3 g/dL (12.0 - 16.0) HEMATOCRIT 38.2 % (37.0 - 47.0) MCV 88.0 fL (81.0 - 101) MCH 28.3 pg (27.0 - 34.0) MCHC 32.2 g/dL (31.0 - 36.0) RDW 13.3 % (11.5 - 14.5) PLATELETS 226 10/uL (150 - 450) MPV 10.1 fL (7.4 - 10.4) NEUT 81.9 H % (37.0 - 80.0) LYMPH 11.3 L % (25.0 - 40.0) MONO 5.5 % (3.0 - 8.0) EOS 0.7 % (0.0 - 7.0) BASO 0.4 % (0.0 - 2.5) %IG 0.2 H % (0.0 - 0.0) %NRBC 0.0 % (0.0 - 0.0) #NEUT 6.80 10/uL (2.00 - 6.90) #LYMPH 0.94 10/uL (0.60 - 3.40) #MONO 0.46 10/uL (0.00 - 0.90) #EOS 0.06 10/uL (0.00 - 0.70) #BASO 0.03 10/uL (0.00 - 0.20) #IG 0.02 10/uL (0.00 - 0.10) #NRBC 0.00 10/uL (0.00 - 0.00) MANUAL DIFF NOT INDICATED RBC MORPH NOT INDICATED 4 Clinical Report - Physicians/Mid Levels [facility] Emergency Department [address] [place] [address] Phone #: ext- [phone] 10/19/2019 03:29 Patient: CONCEPCIÓN CAO Sex: F : 1950 Age: 69yCMP: (LAWRENCE: 10/19/2019 03:45) ( [facility] 10/19/2019 04:28) Final results Test Result Flag Units (Reference) COMPREHENSIVE METABOLIC PANEL COMPREHENSIVE METABOLIC PANEL SODIUM 138 mEq/L (134 - 153) POTASSIUM 4.0 mEq/L (3.6 - 5.0) CHLORIDE 98 mEq/L (98 - 107) CO2 27 MEQ/L (22 - 30) GLUCOSE 225 H MG/DL (65 - 110) BUN 14 MG/DL (7 - 21) CREATININE 1.0 MG/DL (0.7 - 1.5) BUN/CREAT 14 (8 - 27) TOTAL PROTEIN 7.5 G/DL (6.3 - 8.2) ALBUMIN 4.7 G/DL (3.9 - 5.0) GLOBULIN 2.8 GM/DL (2.4 - 3.2) A/G RATIO 1.7 (0.8 - 2.0) CALCIUM 9.7 MG/DL (8.4 - 10.2) TOTAL BILI <0.7 MG/DL (0.2 - 1.3) ALKALINE PHOS 87 U/L (38 - 126) SGOT/AST 17 U/L (5 - 40) SGPT/ALT 9 U/L (7 - 56) ANION GAP 13.0 mmol/L (8.0 - 16.0) AGE 69 yrs NON- AA GFR 58 mL/min AFR AMER GFR >60 Male GFR Interprentation 20-49 yrs >60 mL/min [id number] yrs >56 mL/min Normal 60-69 yrs >49 mL/min Normal 70-79yrs>42 mL/min Normal 80 and above > 35 mL/min Normal Female GFRInterpretation 20-39 yrs >60 mL/min Normal 40-49 yrs >58 mL/minNormal 50-59 yrs >51 mL/min Normal 60-69 yrs >45 mL/min Dbimdh01-01 yrs >39 mL/min Normal 80 and above >32 mL/min NormalD-Dimer: (LAWRENCE: 10/19/2019 03:45) ( [facility] 10/19/2019 04:16) Final results Test Result Flag Units (Reference) D-DIMER QUANT 0.45 ug/mL (0.27 - 0.50)Lipase: (LWARENCE: 10/19/2019 03:45) ( [facility] 10/19/2019 04:28) Final results Test Result Flag Units (Reference) LIPASE 20 U/L (13 - 60)Troponin-T: (LAWRENCE: 10/19/2019 03:45) ( [facility] 10/19/2019 04:22) Final results Test Result Flag Units (Reference) TROPONIN T 0.01 NG/ML (0.00 - 0.10) TROPONIN T0.1 ng/ml Recommended as the clinical threshold value forTroponin T.Chest Portable 1 View: (LAWRENCE: 10/19/2019 03:57) ( [facility] 10/19/2019 06:05) In ProgressCHEST PORTABLEReason(s): Chest PainTRANSPORTATION: S IV? O2? Oxygen?(No) Room: ED: Menopause Exam CHEST PORTABLE 5 Clinical Report - Physicians/Mid Levels [facility] Emergency Department [address] [place] [address] Phone #: [phone] 10/19/2019 03:29 Patient: CONCEPCIÓN CAO Sex: F : 1950 Age: 69[place] [address] PHONE: [phone] FAX: [phone] Name .................. : KILEY BEEBE Acct Number.................. : [id number] ROOM. ................. : TR-02 MR Number ................... : [id number] Stay type ............. : E/R Discharge Date......... ... : Admit Date ......... : 10/19/19 Admit Phys .................... : ERIC JAIN Date of ....... : 1950 Family Phys ................... : RICHARD NICOLE Phone .................. : [phone] Age ................................ : 69 Film# .................. .:[id number] Sex ................................. : F Unsigned transcriptions are preliminary reports and do not represent a medical or legal document CHEST PORTABLE [id number] COMPLETE:10/19/19 04:11 DLA [id number] Reason(s): Chest Pain PORTABLE CHEST X-RAY: INDICATION: Chest pain. COMPARISON: 04/20/10 FINDINGS: The cardiac and mediastinal silhouettes appear normal and the lungs are clear. The bones and soft tissues are normal. The upper abdomen is unremarkable. IMPRESSION: No acute disease identifiable. Electronically Reviewed and Signed By DCTNAME , SIGNDATE, KOLE Transcribe Initials: GARY , Transcribe Date: 10/19/19 06:04, Dictation Date: <<REPDIST>> Page 1 of 1 EKG: (LAWRENCE: 10/19/2019 03:57) ( MsgRcvd 10/19/2019 06:48) In Progress . Note - Tests: (CXR - No infiltrates. Repeat EKG - NSR).PROGRESS AND PROCEDURESCourse of Care: 03:54 Oct 19 2019. Patient is stable. Symptoms better. 6 Clinical Report - Physicians/Mid Levels [facility] Emergency Department [address] [place] [address] Phone #: [phone] 10/19/2019 03:29 Patient: CONCEPCIÓN CAO Sex: F : 1950 Age: 69y 03:54 Oct 19 2019. ASA and NTG administered prior to ED arrival. 04:37 Oct 19 2019. I have spoken with Dr. Walker (Hospitalist) about possible admission of this patient, but he wants a second negative troponin at 3 hours before he would consider admitting her for chest pain. 06:23 Oct 19 2019. Pt. seems oblivious on cell phone, but she says her chest pain is still 7.5 / 10. I am about to repeat troponin and 12 lead EKG prior to any observation admit. Critical care performed (130 minutes). Time is exclusive of separately billable procedures. Time includes: direct patient care, patient reassessment, coordination of patient care, interpretation of data (laboratory data, pulse oximetry and chest xrays), review of patient's medical records, medical consultation, family consultation regarding treatment decisions and documentation of patient care- see progress notes. Procedures included in critical care time: peripheral IV placement and phlebotomy- see progress notes. Disposition: Admitted to the Acute Inpatient Unit, Monitored. 07:[address] Jaimes will admit to observation status for chest pain / Rule out ACS. UTI (catheter associated) was not present prior to admission. Pressure ulcer was not present prior to admission. Vascular infection (catheter associated) was not present prior to adm ission. Surgical site infection was not present prior to admission. An object left in surgery was not present prior to admission. Blood incompatibility was not present prior to admission. Air embolism was not present prior to admission.CLINICAL IMPRESSION Precordial chest pain characterized as "discomfort", "pressure" and "tightness"(R/O ACS).(Electronically signed by Otoniel Reyes, Physician 10/23/2019 08:57) Name Value Range Interpretation Code Description Data Malathi rce(s) Supporting Document(s) ID Date Data Source [id number] 10/19/2019 03:30:00 AM EDT [facility] CONCEPCIÓN Savage VisitID: [id number] Date: 7:09Faxed Med Rec Request to [employer] @ 0706 with the t-system overview attached.(Electronically signed by Theo Bae - 10/19/2019 7:09)10/19/2019 8:27T-Systems overview faxed to [facility] @ [phone](Electronically signed by Theo Bae - 10/19/2019 8:27) Name Value Range Interpretation Code Description Data Malathi rce(s) Supporting Document(s) ID Date Data Source [id number] 10/21/2019 01:46:00 PM EDT [facility] [address] [place] [address] PHONE: [phone] FAX: [phone] Name .................. : KILEY BEEBE Acct Number.................. : [id number] ROOM. ................. : 102-1 MR Number ................... : [id number] Stay type ............. : O/P Discharge Date......... ... : Admit Date ......... : 10/19/19 Admit Phys .................... : SEEMANEAL Date of ....... : 1950 Family Phys ................... : RICHARD NICOLE Phone .................. : [phone] Age ................................ : 69 Film# .................. .:[id number] Sex ................................. : F Unsigned transcriptions are preliminary reports and do not represent a medical or legal document CT CTA CHEST NON-CORONARY W C 09889 COMPLETE:10/19/19 08:27 CASEY [id number] Reason(s): Chest pain, palpitations CTA CHEST WITH CONTRAST, 10/19/19: INDICATION: Chest pain and palpitations. FINDINGS: Lung durán are clear. No distinct nodule or infiltrate is identified. No pleural or pericardial effusion is identified. The heart appears enlarged. No mediastinal adenopathy is identified. Vasculature is within normal limits. No evidence of a pulmonary embolism is identified. Visualized portions of the upper abdomen show incidental note of splenic and hepatic granulomas. Otherwise, the upper abdomen appears unremarkable. There are diffuse degenerative changes in the spine. IMPRESSION: No evidence of a pulmonary embolism. 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 While performing the above CT examination, radiation dose reduction was accomplished utilizing automated exposure control, adjusting of the mA and kV based on the patient's body size and/or the use of imperative reconstructive techniques. CT dose 872.1 mGycm. Contrast agent in mL: 75 mL Isovue 370 Method of administration: Intravenous Examination dictated by JOSE Mendez. Examination was reviewed with Raul Gamez MD, radiologist at the time of this dictation. Page 1 of 2 [facility] [address] [place] [address] [place] [address] PHONE: [phone] FAX: [phone] Name .................. : KILEY BEEBE Acct Number.................. : [id number] ROOM. ................. : 102-1 MR Number ................... : [id number] Stay type ............. : O/P Discharge Date......... ... : Admit Date ......... : 10/19/19 Admit Phys .................... : MARIA ANTONIA Date of ....... : 1950 Family Phys ................... : RICHARD NICOLE Phone .................. : [phone] Age ................................ : 69 Film# .................. .:[id number] Sex ................................. : F Unsigned transcriptions are preliminary reports and do not represent a medical or legal document CT CTA CHEST NON- CORONARY W C 50090 COMPLETE:10/19/19 08:27 CASEY [id number] Reason(s): Chest pain, palpitations Electronically Reviewed and Signed By RAUL GAMEZ MD , 10/21/19 13:46, [facility] Transcribe Initials: SSR, Transcribe Date: 10/19/19 10:40, Dictation Date: Copy for: RICHARD MASTERS via fax Copy for: EMERGENCY DEPT via modem Copy for: 710 MED REC DISCHARGED Page 2 of 2 Name Value Range Interpretation Code Description Data Malathi rce(s) Supporting Document(s) ID Date Data Source [id number] 10/21/2019 06:08:00 AM EDT [facility] Name Value Range Interpretation Code Description Data Malathi rce(s) Supporting Document(s) Sodium 140 meq/L 134-153 [facility] Comprehensive Metabo Laboratory test result [facility] ([facility] COMPREHENSIVE METABOLIC PANEL Potassium 4.7 meq/L 3.6-5.0 [facility] Co2 26 meq/L 22-30 [facility] Chloride 104 meq/L 98-107 [facility] Glucose 165 mg/dL 65-110 Above high normal [facility] ([facility] BUN 22 mg/dL 7-21 Above high normal [facility] Creatinine 1.0 mg/dL 0.7-1.5 [facility] ([facility] BUN/Creat 22 8-27 [facility] Albumin 3.5 g/dL 3.9-5.0 Below low normal [facility] ( [facility] Total Protein 5.7 g/dL 6.3-8.2 Below low normal [facility] T ([facility] Calcium 8.7 mg/dL 8.4-10.2 [facility] ([facility] A/G Ratio 1.6 0.8-2.0 [facility] ([facility] Globulin 2.2 GM/DL 2.4-3.2 Below low normal [facility] ( [facility] Total Bili Laboratory test result 0.2-1.3 ME DENT ([facility] Sgot/Ast 12 U/L 5-40 [facility] Alkaline Phos 59 U/L 38-126 [facility] ([facility] Anion Gap 10.0 mmol/L 8.0-16.0 [facility] ([facility] SGPT/Alt 8 U/L 7-56 [facility] Age 69 yrs [facility] ([facility] Afr Amer GFR Laboratory test result [facility] ([facility] Male GFR Interprentation 20-49 yrs >60 mL/min Normal 50-59 yrs >56 mL/min Normal 60-69 yrs >49 mL/min Normal 70-79yrs >42 mL/min Normal 80 and above >35 mL/min Normal Female GFR Interpretation 20-39 yrs >60 mL/min Normal 40-49 yrs >58 mL/min Normal 50-59 yrs >51 mL/min Normal 60-69 yrs >45 mL/min Normal 70-79 yrs >39 mL/min Normal 80 and above >32 mL/min Normal Non-Aa GFR 58 mL/min [facility] ([facility] ID Date Data Source [id number] 10/21/2019 06:08:00 AM EDT [facility] ([facility] Name Value Range Interpretation Code Description Data Malathi rce(s) Supporting Document(s) Magnesium [Mass/volume] in Serum or Plasma 1.7 mg/dL 1.7-2.2 [facility] ID Date Data Source [id number] 10/21/2019 06:08:00 AM EDT [facility] ([facility] Name Value Range Interpretation Code Description Data Malathi rce(s) Supporting Document(s) WBC 8.1 10^3/uL 4.2-11.0 [facility] ([facility] CBC W/Automated Diff Laboratory test result [facility] ([facility] COMPLETE BLOOD COUNT Hemoglobin 11.2 g/dL 12.0-16.0 Below low normal [facility] ( [facility] RBC 3.90 10^6/uL 4.20-5.40 Below low normal [facility] ([facility] MCV 88.2 fL 81.0-101 [facility] Hematocrit 34.4 % 37.0-47.0 Below low normal [facility] ( [facility] MCHC 32.6 g/dL 31.0-36.0 [facility] RDW 13.6 % 11.5-14.5 [facility] MCH 28.7 pg 27.0-34.0 [facility] Platelets 196 10^3/uL 150-450 [facility] MPV 10.2 fL 7.4-10.4 [facility] Neut 71.9 % 37.0-80.0 [facility] Lymph 19.2 % 25.0-40.0 Below low normal [facility] ( [facility] Eos 1.0 % 0.0-7.0 [facility] Elk 7.0 % 3.0-8.0 [facility] %Ig 0.4 % 0.0-0.0 Above high normal [facility] ([facility] Baso 0.5 % 0.0-2.5 [facility] %NRBC 0.0 % 0.0-0.0 [facility] #Neut 5.85 10^3/uL 2.00-6.90 [facility] #Lymph 1.56 10^3/uL 0.60-3.40 [facility] #Elk 0.57 10^3/uL 0.00-0.90 [facility] ([facility] #Baso 0.04 10^3/uL 0.00-0.20 [facility] #Eos 0.08 10^3/uL 0.00-0.70 [facility] #NRBC 0.00 10^3/uL 0.00-0.00 [facility] #Ig 0.03 10^3/uL 0.00-0.10 [facility] Manual Diff Laboratory test result M SHAUNA ([facility] RBC Morph Laboratory test result ME LACKEY ([facility] ID Date Data Source [id number] 10/21/2019 07:03:00 AM EDT [facility] Name Value Range Interpretation Code Description Data Malathi rce(s) Supporting Document(s) COMPREHENSIVE METABOLIC PANEL [facility] COMPREHENSIVE METABOLIC PANEL Sodium [Moles/volume] in Serum or Plasma 140 mEq/L 134 - 153 [facility] Potassium [Moles/volume] in Serum or Plasma 4.7 mEq/L 3.6 - 5.0 [facility] Chloride [Moles/volume] in Serum or Plasma 104 mEq/L 98 - 107 [facility] Carbon dioxide, total [Moles/volume] in Serum or Plasma 26 MEQ/L 22 - 30 [facility] Glucose [Mass/volume] in Serum or Plasma 165 MG/DL 65 - 110 H [facility] BUN 22 MG/DL 7 - 21 [facility] Creatinine [Mass/volume] in Serum or Plasma 1.0 MG/DL 0.7 - 1.5 [facility] BUN/CREAT 22 8 - 27 [facility] Protein [Mass/volume] in Serum or Plasma 5.7 G/DL 6.3 - 8.2 L [facility] Albumin [Mass/volume] in Serum or Plasma 3.5 G/DL 3.9 - 5.0 L [facility] Globulin [Mass/volume] in Serum by calculation 2.2 GM/DL 2.4 - 3.2 L [facility] A/G RATIO 1.6 0.8 - 2.0 [facility] Calcium [Mass/volume] in Serum or Plasma 8.7 MG/DL 8.4 - 10.2 [facility] Bilirubin.total [Mass/volume] in Serum or Plasma <0.7 MG/DL 0.2 - 1.3 [facility] Alkaline phosphatase [Enzymatic activity/volume] in Serum or Plasma 59 U/L 38 - 126 [facility] Aspartate aminotransferase [Enzymatic activity/volume] in Serum or Plasma 12 U/L 5 - 40 [facility] Alanine aminotransferase [Enzymatic activity/volume] in Seru m or Plasma 8 U/L 7 - 56 [facility] Anion gap 3 in Serum or Plasma 10.0 mmol/L 8.0 - 16.0 [facility] AGE 69 yrs [facility] NON-AA GFR 58 mL[facility] AMER GFR >60 [facility] Male GFR In terprentation 20-49 yrs >60 mL/min Normal 50-59 yrs >56 mL/min Normal 60-69 yrs >49 mL/min Normal 70-79yrs >42 mL/min Normal 80 and above >35 mL/min Normal Female GFR Interpretation 20-39 yrs >60 mL/min Normal 40-49 yrs >58 mL/min Normal 50-59 yrs >51 mL/min Normal 60-69 yrs >45 mL/min Normal 70-79 yrs >39 mL/min Normal 80 and above >32 mL/min Normal ID Date Data Source [id number] 10/21/2019 06:57:00 AM EDT [facility] Name Value Range Interpretation Code Description Data Malathi rce(s) Supporting Document(s) Magnesium [Mass/volume] in Serum or Plasma 1.7 MG/DL 1.7 - 2.2 [facility] ID Date Data Source [id number] 10/21/2019 06:36:00 AM EDT [facility] Name Value Range Interpretation Code Description Data Malathi rce(s) Supporting Document(s) CBC W/AUTOMATED DIFF [facility] COMPLETE BLOOD COUNT Leukocytes [#/volume] in Blood by Automated count 8.1 10^3/uL 4.2 - 1 1.0 [facility] Erythrocytes [#/volume] in Blood by Automated count 3.90 10^6/uL 4. 20 - 5.40 L [facility] Hemoglobin [Mass/volume] in Blood 11.2 g/dL 12.0 - 16.0 L [facility] Hematocrit [Volume Fraction] of Blood by Automated count 34.4 % 3 7.0 - 47.0 L [facility] Erythrocyte mean corpuscular volume [Entitic volume] by Auto mated count 88.2 fL 81.0 - 101 [facility] Erythrocyte mean corpuscular hemoglobin [Entitic mass] by Automated count 28.7 pg 27.0 - 34.0 [facility] Erythrocyte mean corpuscular hemoglobin concentration [Mass/volume] by Automated count 32.6 g/dL 31.0 - 36.0 [facility] Erythrocyte distribution width [Ratio] by Automated count 13.6 % 11.5 - 14.5 [facility] Platelets [#/volume] in Blood by Automated count 196 10^3/uL 150 - 45 0 [facility] Platelet mean volume [Entitic volume] in Blood by Automated count 10.2 fL 7.4 - 10.4 [facility] Neutrophils/100 leukocytes in Blood by Automated count 71.9 % 37. 0 - 80.0 [facility] Lymphocytes/100 leukocytes in Blood by Manual count 19.2 % 25.0 - 40.0 L [facility] Monocytes/100 leukocytes in Blood by Automated count 7.0 % 3.0 - 8.0 [facility] Eosinophils/100 leukocytes in Blood by Automated count 1.0 % 0.0 - 7.0 [facility] Basophils/100 leukocytes in Blood by Automated count 0.5 % 0.0 - 2.5 [facility] %IG 0.4 % 0.0 - 0.0 H [facility] %NRBC 0.0 % 0.0 - 0.0 [facility] Neutrophils [#/volume] in Blood by Automated count 5.85 10^3/uL 2.00 - 6.90 [facility] Lymphocytes [#/volume] in Blood by Automated count 1.56 10^3/uL 0.60 - 3.40 [facility] Monocytes [#/volume] in Blood by Automated count 0.57 10^3/uL 0.00 - 0.90 [facility] Eosinophils [#/volume] in Blood by Automated count 0.08 10^3/uL 0.00 - 0.70 [facility] Basophils [#/volume] in Blood by Automated count 0.04 10^3/uL 0.00 - 0.20 [facility] #IG 0.03 10^3/uL 0.00 - 0.10 [facility] #NRBC 0.00 10^3/uL 0.00 - 0.00 [facility] ospital MANUAL DIFF NOT INDICATED [facility] RBC MORPH NOT INDICATED [facility] spital ID Date Data Source [id number] 10/20/2019 05:56:00 AM EDT [facility] ([facility] Name Value Range Interpretation Code Description Data Malathi rce(s) Supporting Document(s) WBC 11.2 10^3/uL 4.2-11.0 Above high normal [facility] T ([facility] CBC W/Automated Diff Laboratory test result [facility] ([facility] COMPLETE BLOOD COUNT RBC 4.29 10^6/uL 4.20-5.40 [facility] ([facility] Hemoglobin 12.2 g/dL 12.0-16.0 [facility] Hematocrit 37.5 % 37.0-47.0 [facility] MCHC 32.5 g/dL 31.0-36.0 [facility] MCH 28.4 pg 27.0-34.0 [facility] MCV 87.4 fL 81.0-101 [facility] MPV 10.2 fL 7.4-10.4 [facility] Platelets 259 10^3/uL 150-450 [facility] RDW 13.2 % 11.5-14.5 [facility] Neut 87.6 % 37.0-80.0 Above high normal [facility] ([facility] Elk 4.2 % 3.0-8.0 [facility] Lymph 7.3 % 25.0-40.0 Below low normal [facility] ( [facility] %Ig 0.8 % 0.0-0.0 Above high normal [facility] Eos 0.0 % 0.0-7.0 [facility] Baso 0.1 % 0.0-2.5 [facility] #Neut 9.78 10^3/uL 2.00-6.90 Above high normal [facility] T ([facility] #Lymph 0.82 10^3/uL 0.60-3.40 [facility] %NRBC 0.0 % 0.0-0.0 [facility] #Elk 0.47 10^3/uL 0.00-0.90 [facility] #Baso 0.01 10^3/uL 0.00-0.20 [facility] #Eos 0.00 10^3/uL 0.00-0.70 [facility] #NRBC 0.00 10^3/uL 0.00-0.00 [facility] ([facility] Manual Diff Laboratory test result M EDENT ([facility] #Ig 0.09 10^3/uL 0.00-0.10 [facility] ([facility] RBC Morph Laboratory test result ME DENT ([facility] ID Date Data Source [id number] 10/20/2019 05:56:00 AM EDT [facility] ([facility] Name Value Range Interpretation Code Description Data Malathi rce(s) Supporting Document(s) Magnesium [Mass/volume] in Serum or Plasma 1.8 mg/dL 1.7-2.2 [facility] ([facility] ID Date Data Source [id number] 10/20/2019 05:56:00 AM EDT [facility] ([facility] Name Value Range Interpretation Code Description Data Malathi rce(s) Supporting Document(s) Sodium 139 meq/L 134-153 [facility] ([facility] Comprehensive Metabo Laboratory test result [facility] ([facility] COMPREHENSIVE METABOLIC PANEL Co2 27 meq/L 22-30 [facility] ([facility] Potassium 4.9 meq/L 3.6-5.0 [facility] ([facility] Chloride 100 meq/L 98-107 [facility] ([facility] BUN 19 mg/dL 7-21 [facility] ([facility] Creatinine 0.9 mg/dL 0.7-1.5 [facility] ([facility] Glucose 244 mg/dL 65-110 Above high normal [facility] ([facility] Albumin 3.8 g/dL 3.9-5.0 Below low normal [facility] ( [facility] Total Protein 6.3 g/dL 6.3-8.2 [facility] ([facility] BUN/Creat 21 8-27 [facility] ([facility] Globulin 2.5 GM/DL 2.4-3.2 [facility] ([facility] Calcium 9.5 mg/dL 8.4-10.2 [facility] ([facility] A/G Ratio 1.5 0.8-2.0 [facility] ([facility] Alkaline Phos 69 U/L 38-126 [facility] ([facility] Total Bili Laboratory test result 0.2-1.3 ME DENT ([facility] Sgot/Ast 15 U/L 5-40 [facility] ([facility] Anion Gap 12.0 mmol/L 8.0-16.0 [facility] ([facility] SGPT/Alt 9 U/L 7-56 [facility] ([facility] Age 69 yrs [facility] ([facility] Non-Aa GFR Laboratory test result ME DENT ([facility] Afr Amer GFR Laboratory test result [facility] ([facility] Male GFR Interprentation 20-49 yrs >60 mL/min Normal 50-59 yrs >56 mL/min Normal 60-69 yrs >49 mL/min Normal 70-79yrs >42 mL/min Normal 80 and above >35 mL/min Normal Female GFR Interpretation 20-39 yrs >60 mL/min Normal 40-49 yrs >58 mL/min Normal 50-59 yrs >51 mL/min Normal 60-69 yrs >45 mL/min Normal 70-79 yrs >39 mL/min Normal 80 and above >32 mL/min Normal ID Date Data Source [id number] 10/20/2019 06:53:00 AM EDT [facility] Name Value Range Interpretation Code Description Data Malathi rce(s) Supporting Document(s) COMPREHENSIVE METABOLIC PANEL [facility] COMPREHENSIVE METABOLIC PANEL Sodium [Moles/volume] in Serum or Plasma 139 mEq/L 134 - 153 [facility] Potassium [Moles/volume] in Serum or Plasma 4.9 mEq/L 3.6 - 5.0 [facility] Chloride [Moles/volume] in Serum or Plasma 100 mEq/L 98 - 107 [facility] Carbon dioxide, total [Moles/volume] in Serum or Plasma 27 MEQ/L 22 - 30 [facility] Glucose [Mass/volume] in Serum or Plasma 244 MG/DL 65 - 110 H [facility] BUN 19 MG/DL 7 - 21 [facility] Creatinine [Mass/volume] in Serum or Plasma 0.9 MG/DL 0.7 - 1.5 [facility] BUN/CREAT 21 8 - 27 [facility] Protein [Mass/volume] in Serum or Plasma 6.3 G/DL 6.3 - 8.2 [facility] Albumin [Mass/volume] in Serum or Plasma 3.8 G/DL 3.9 - 5.0 L [facility] Globulin [Mass/volume] in Serum by calculation 2.5 GM/DL 2.4 - 3.2 [facility] A/G RATIO 1.5 0.8 - 2.0 [facility] Calcium [Mass/volume] in Serum or Plasma 9.5 MG/DL 8.4 - 10.2 [facility] Bilirubin.total [Mass/volume] in Serum or Plasma <0.7 MG/DL 0.2 - 1.3 [facility] Alkaline phosphatase [Enzymatic activity/volume] in Serum or Plasma 69 U/L 38 - 126 [facility] Aspartate aminotransferase [Enzymatic activity/volume] in Serum or Plasma 15 U/L 5 - 40 [facility] Alanine aminotransferase [Enzymatic activity/volume] in Seru m or Plasma 9 U/L 7 - 56 [facility] Anion gap 3 in Serum or Plasma 12.0 mmol/L 8.0 - 16.0 [facility] AGE 69 yrs [facility] NON-AA GFR >60 mL/min [facility] ital AFR AMER GFR >60 [facility] Male GFR In terprentation 20-49 yrs >60 mL/min Normal 50-59 yrs >56 mL/min Normal 60-69 yrs >49 mL/min Normal 70-79yrs >42 mL/min Normal 80 and above >35 mL/min Normal Female GFR Interpretation 20-39 yrs >60 mL/min Normal 40-49 yrs >58 mL/min Normal 50-59 yrs >51 mL/min Normal 60-69 yrs >45 mL/min Normal 70-79 yrs >39 mL/min Normal 80 and above >32 mL/min Normal ID Date Data Source [id number] 10/20/2019 06:50:00 AM EDT [facility] Name Value Range Interpretation Code Description Data Malathi rce(s) Supporting Document(s) Magnesium [Mass/volume] in Serum or Plasma 1.8 MG/DL 1.7 - 2.2 [facility] ID Date Data Source [id number] 10/20/2019 06:43:00 AM EDT [facility] Name Value Range Interpretation Code Description Data Malathi rce(s) Supporting Document(s) CBC W/AUTOMATED DIFF [facility] COMPLETE BLOOD COUNT Leukocytes [#/volume] in Blood by Automated count 11.2 10^3/uL 4.2 - 11.0 H [facility] Erythrocytes [#/volume] in Blood by Automated count 4.29 10^6/uL 4. 20 - 5.40 [facility] Hemoglobin [Mass/volume] in Blood 12.2 g/dL 12.0 - 16.0 [facility] Hematocrit [Volume Fraction] of Blood by Automated count 37.5 % 3 7.0 - 47.0 [facility] Erythrocyte mean corpuscular volume [Entitic volume] by Auto mated count 87.4 fL 81.0 - 101 [facility] Erythrocyte mean corpuscular hemoglobin [Entitic mass] by Automated count 28.4 pg 27.0 - 34.0 [facility] Erythrocyte mean corpuscular hemoglobin concentration [Mass/volume] by Automated count 32.5 g/dL 31.0 - 36.0 [facility] Erythrocyte distribution width [Ratio] by Automated count 13.2 % 11.5 - 14.5 [facility] Platelets [#/volume] in Blood by Automated count 259 10^3/uL 150 - 45 0 [facility] Platelet mean volume [Entitic volume] in Blood by Automated count 10.2 fL 7.4 - 10.4 [facility] Neutrophils/100 leukocytes in Blood by Automated count 87.6 % 37. 0 - 80.0 H [facility] Lymphocytes/100 leukocytes in Blood by Manual count 7.3 % 25.0 - 40.0 L [facility] Monocytes/100 leukocytes in Blood by Automated count 4.2 % 3.0 - 8.0 [facility] Eosinophils/100 leukocytes in Blood by Automated count 0.0 % 0.0 - 7.0 [facility] Basophils/100 leukocytes in Blood by Automated count 0.1 % 0.0 - 2.5 [facility] %IG 0.8 % 0.0 - 0.0 H [facility] %NRBC 0.0 % 0.0 - 0.0 [facility] Neutrophils [#/volume] in Blood by Automated count 9.78 10^3/uL 2.00 - 6.90 H [facility] Lymphocytes [#/volume] in Blood by Automated count 0.82 10^3/uL 0.60 - 3.40 [facility] Monocytes [#/volume] in Blood by Automated count 0.47 10^3/uL 0.00 - 0.90 [facility] Eosinophils [#/volume] in Blood by Automated count 0.00 10^3/uL 0.00 - 0.70 [facility] Basophils [#/volume] in Blood by Automated count 0.01 10^3/uL 0.00 - 0.20 [facility] #IG 0.09 10^3/uL 0.00 - 0.10 [facility] #NRBC 0.00 10^3/uL 0.00 - 0.00 [facility] MANUAL DIFF NOT INDICATED [facility] RBC MORPH NOT INDICATED [facility] spital ID Date Data Source [id number] 10/19/2019 12:16:00 PM EDT [facility] ([facility] Name Value Range Interpretation Code Description Data Malathi rce(s) Supporting Document(s) Troponin T.cardiac [Mass/volume] in Serum or Plasma 0.01 ng/mL 0.00-0 .10 [facility] ([facility] TROPONIN T 0.1 ng/ml Recommended as the clinical th reshold value for Troponin T. ID Date Data Source [id number] 10/19/2019 12:50:00 PM EDT [facility] Name Value Range Interpretation Code Description Data Malathi rce(s) Supporting Document(s) TROPONIN T 0.01 NG/ML 0.00 - 0.10 [facility] TROPONIN T0.1 ng/ml Recommended as the c linical threshold value forTroponin T. ID Date Data Source [id number] 10/19/2019 08:59:00 AM EDT [facility] [address] [place] [address] PHONE: [phone] FAX: [phone] Name .................. : KILEY BEEBE Acct Number.................. : [id number] ROOM. ................. : TR-02 Number ................... : [id number] Stay type ............. : E/R Discharge Date......... ... : Admit Date ......... : 10/19/19 Admit Phys .................... : ERIC JAIN Date of ....... : 1950 Family Phys ................... : RICHARD NICOLE Phone ..... ............. : [phone] Age ................................ : 69 Film# .................. .:[id number] Sex ................................. : F Unsigned t ranscriptions are preliminary reports and do not represent a medical or legal document CHEST PORTABLE [id number] COMPLETE:10/19/19 04:11 DLA 25869 Reason(s): Chest Pain PORTABLE CHEST X-RAY: INDICATION: Chest pain. COMPARISON: 04/20/10 FINDINGS: The cardiac and mediastinal silhouettes appear normal and the lungs are clear. The bones and soft tissues are normal. The upper abdomen is unremarkable. IMPRESSION: No acute disease identifiable. Electronically Reviewed and Signed By Raymon Ramires MD , 10/19/19 08:59, KOLE Transcribe Initials: DZ , Transcribe Date: 10/19/19 06:04, Dictation Date: Copy for: RICHARD MASTERS via fax Copy for: EMERGENCY DEPT via modem Copy for: [address] [place] [address] REC Page 1 of 1 Name Value Range Interpretation Code Description Data Malathi rce(s) Supporting Document(s) ID Date Data Source [id number] 10/19/2019 08:41:00 [place] [address] RESPIRATORY CARE REPORT ==== ---------NAME------- NUMBER SEX AGE ADMIT DISC. XRAY# F/C KAREYRANDAL BEEBE [id number] F [id number] 10/19/19 [id number] O/P DATE OF : 1950 M/R# [id number] #: [id number] LOCATION: EMERGENCY DEPT EKG [id number] COMP LETE:10/19/19 06:46 ED [id number] PHYSICIAN: MARIA ANTONIA JAIN Name Value Range Interpretation Code Description Data Malathi rce(s) Supporting Document(s) ID Date Data Source [id number] 10/19/2019 08:39:00 AM EDT [address] [place] [address] RESPIRATORY CARE REPORT ==== ---------NAME------- NUMBER SEX AGE ADMIT DISC. XRAY# F/C IRVING BEEBE [id number] F [id number] 10/19/19 [id number] O/P DATE OF : 1950 M/R# [id number] #: [id number] LOCATION: EMERGENCY DEPT EKG [id number] COMP LETE:10/19/19 08:37 EWW [id number] PHYSICIAN: MARIA ANTONIA Name Value Range Interpretation Code Description Data Malathi rce(s) Supporting Document(s) ID Date Data Source [id number] 10/19/2019 06:14:00 AM EDT [facility] Name Value Range Interpretation Code Description Data Malathi rce(s) Supporting Document(s) Troponin T.cardiac [Mass/volume] in Serum or Plasma 0.01 ng/mL 0.00-0 .10 [facility] ([facility] TROPONIN T 0.1 ng/ml Recommended as the clinical th reshold value for Troponin T. ID Date Data Source [id number] 10/19/2019 06:56:00 AM EDT [facility] Name Value Range Interpretation Code Description Data Malathi rce(s) Supporting Document(s) TROPONIN T 0.01 NG/ML 0.00 - 0.10 [facility] spital TROPONIN T0.1 ng/ml Recommended as the c linical threshold value forTroponin T. ID Date Data Source [id number] 10/19/2019 05:10:00 AM EDT [facility] ([facility] Name Value Range Interpretation Code Description Data Malathi rce(s) Supporting Document(s) Urinalysis Laboratory test result [facility] ([facility] SOURCE: Clean Catch Source Laboratory test result [facility] ([facility] SOURCE: Clean Catch Spec Muse 1.015 1.001-1.030 [facility] ([facility] SOURCE: Clean Catch Clarity Laboratory test result [facility] ([facility] SOURCE: Clean Catch Color Laboratory test result [facility] ([facility] SOURCE: Clean Catch pH 6 5-9 [facility] ([facility] SOURCE: Clean Catch Glucose Laboratory test result [facility] ([facility] SOURCE: Clean Catch Bilirubin Laboratory test result [facility] ([facility] SOURCE: Clean Catch Protein Laboratory test result [facility] ([facility] SOURCE: Clean Catch Ketone Laboratory test result [facility] ([facility] SOURCE: Clean Catch Blood Laboratory test result [facility] ([facility] SOURCE: Clean Catch Nitrite Laboratory test result [facility] ([facility] SOURCE: Clean Catch Microscopic Laboratory test result [facility] ([facility] SOURCE: Clean Catch Leuk Est Laboratory test result [facility] ([facility] SOURCE: Clean Catch Urobilinogen Laboratory test result [facility] ([facility] SOURCE: Clean Catch ID Date Data Source [id number] 10/19/2019 05:19:00 AM EDT [facility] Name Value Range Interpretation Code Description Data Malathi rce(s) Supporting Document(s) [facility] COLOR yellow NORMAL: Yellow [facility] CLARITY clear NORMAL: Clear [facility] Specific gravity of Urine by Test strip 1.015 1.001 - 1.030 [facility] pH 6 5 - 9 [facility] Glucose [Mass/volume] in Urine by Test strip NORM NORMAL: Negat micheal [facility] Bilirubin.total [Presence] in Urine by Test strip NEG NORMAL: Negative [facility] Ketones [Presence] in Urine by Test strip NEG NORMAL: Negative [facility] Protein [Mass/volume] in Urine by Test strip NEG NORMAL: Negat micheal [facility] Nitrite [Presence] in Urine by Test strip NEG NORMAL: Negative [facility] BLOOD NEG NORMAL: Negative [facility] Leukocyte esterase [Presence] in Urine by Test strip NEG CHRIS L: Negative [facility] Urobilinogen [Mass/volume] in Urine by Test strip NOR less latonia n 1.0 mg/dL [facility] MICROSCOPIC Not Indicate [facility] ID Date Data Source [id number] 10/19/2019 03:45:00 AM EDT [facility] ([facility] Name Value Range Interpretation Code Description Data Malathi rce(s) Supporting Document(s) Thyrotropin [Units/volume] in Serum or Plasma 2.38 uIU/mL 0.47-5.01 [facility] ([facility] ID Date Data Source [id number] 10/19/2019 03:45:00 AM EDT [facility] ([facility] Name Value Range Interpretation Code Description Data Malathi rce(s) Supporting Document(s) Cve Panel Laboratory test result [facility] ([facility] LIPID PANEL Triglycerides 148 mg/dL 35-160 [facility] Cholesterol 150 mg/dL 131-200 [facility] LDL 85 mg/dL 65-175 [facility] HDL 50 mg/dL 29-86 [facility] Risk Factor 3.0 3.2-4.4 Below low normal [facility] ([facility] LDL/HDL 1.70 1.47-3.22 [facility] CVE RISK CHOL/HDL LDL/HDL MEN: 1/2 AVERAGE 3.43 1.00 AVERAGE 4.97 3.55 2X AVERAGE 9.55 6.25 3X AVERAGE 23.99 7.99 WOMEN: 1/2 AVERAGE 3.27 1.47 AVERAGE 4.44 3.22 2X AVERAGE 7.05 5.03 3X AVERAGE 11.04 6.14 ID Date Data Source [id number] 10/19/2019 03:45:00 AM EDT [facility] ([facility] Name Value Range Interpretation Code Description Data Malathi rce(s) Supporting Document(s) Hemoglobin A1c/Hemoglobin.total in Blood 7.0 % 4.4-6.1 Above high normal [facility] ([facility] {A1] {HB] Magnesium [Mass/volume] in Serum or Plasma 1.6 mg/dL 1.7-2.2 Belo w low normal [facility] ([facility] ID Date Data Source [id number] 10/19/2019 03:45:00 AM EDT [facility] ([facility] Name Value Range Interpretation Code Description Data Malathi rce(s) Supporting Document(s) Lipoprotein lipase [Enzymatic activity/volume] in Serum or Plasm a 20 U/L 13-60 [facility] ([facility] ) ID Date Data Source [id number] 10/19/2019 03:45:00 AM EDT [facility] ([facility] Name Value Range Interpretation Code Description Data Malathi rce(s) Supporting Document(s) Sodium 138 meq/L 134-153 [facility] ([facility] Comprehensive Metabo Laboratory test result [facility] ([facility] COMPREHENSIVE METABOLIC PANEL Potassium 4.0 meq/L 3.6-5.0 [facility] ([facility] Chloride 98 meq/L 98-107 [facility] ([facility] Co2 27 meq/L 22-30 [facility] ([facility] Glucose 225 mg/dL 65-110 Above high normal [facility] ([facility] BUN 14 mg/dL 7-21 [facility] ([facility] Creatinine 1.0 mg/dL 0.7-1.5 [facility] ([facility] Total Protein 7.5 g/dL 6.3-8.2 [facility] ([facility] BUN/Creat 14 8-27 [facility] ([facility] Globulin 2.8 GM/DL 2.4-3.2 [facility] ([facility] Albumin 4.7 g/dL 3.9-5.0 [facility] Total Bili Laboratory test result 0.2-1.3 [facility] ([facility] A/G Ratio 1.7 0.8-2.0 [facility] Calcium 9.7 mg/dL 8.4-10.2 [facility] ([facility] Alkaline Phos 87 U/L 38-126 [facility] ([facility] Sgot/Ast 17 U/L 5-40 [facility] SGPT/Alt 9 U/L 7-56 [facility] Age 69 yrs [facility] Non-Aa GFR 58 mL/min [facility] ([facility] Anion Gap 13.0 mmol/L 8.0-16.0 [facility] ([facility] Afr Amer GFR Laboratory test result [facility] ([facility] Male GFR Interprentation 20-49 yrs >60 mL/min Normal 50-59 yrs >56 mL/min Normal 60-69 yrs >49 mL/min Normal 70-79yrs >42 mL/min Normal 80 and above >35 mL/min Normal Female GFR Interpretation 20-39 yrs >60 mL/min Normal 40-49 yrs >58 mL/min Normal 50-59 yrs >51 mL/min Normal 60-69 yrs >45 mL/min Normal 70-79 yrs >39 mL/min Normal 80 and above >32 mL/min Normal ID Date Data Source [id number] 10/19/2019 03:45:00 AM EDT [facility] ([facility] Name Value Range Interpretation Code Description Data Malathi rce(s) Supporting Document(s) Fibrin D-dimer [Presence] in Platelet poor plasma 0.45 ug/mL 0.27-0.5 0 [facility] ([facility] Natriuretic peptide.B prohormone N-Terminal [Mass/volu me] in Serum or Plasma 291 pg/mL 0-125 Above high normal [facility] ([facility] Troponin T.cardiac [Mass/volume] in Serum or Plasma 0.01 ng/mL 0.00-0 .10 [facility] ([facility] TROPONIN T 0.1 ng/ml Recommended as the clinical th reshold value for Troponin T. ID Date Data Source [id number] 10/19/2019 03:45:00 AM EDT [facility] ([facility] Name Value Range Interpretation Code Description Data Malathi rce(s) Supporting Document(s) CBC W/Automated Diff Laboratory test result [facility] ([facility] COMPLETE BLOOD COUNT WBC 8.3 10^3/uL 4.2-11.0 [facility] ([facility] RBC 4.34 10^6/uL 4.20-5.40 [facility] ([facility] Hemoglobin 12.3 g/dL 12.0-16.0 [facility] ([facility] MCH 28.3 pg 27.0-34.0 [facility] ([facility] Hematocrit 38.2 % 37.0-47.0 [facility] ([facility] MCV 88.0 fL 81.0-101 [facility] Platelets 226 10^3/uL 150-450 [facility] MPV 10.1 fL 7.4-10.4 [facility] RDW 13.3 % 11.5-14.5 [facility] MCHC 32.2 g/dL 31.0-36.0 [facility] Elk 5.5 % 3.0-8.0 [facility] Lymph 11.3 % 25.0-40.0 Below low normal [facility] ( [facility] Neut 81.9 % 37.0-80.0 Above high normal [facility] ([facility] Baso 0.4 % 0.0-2.5 [facility] ([facility] Eos 0.7 % 0.0-7.0 [facility] ([facility] %Ig 0.2 % 0.0-0.0 Above high normal [facility] %NRBC 0.0 % 0.0-0.0 [facility] #Neut 6.80 10^3/uL 2.00-6.90 [facility] ([facility] #Elk 0.46 10^3/uL 0.00-0.90 [facility] ([facility] #Lymph 0.94 10^3/uL 0.60-3.40 [facility] #Ig 0.02 10^3/uL 0.00-0.10 [facility] ([facility] #Baso 0.03 10^3/uL 0.00-0.20 [facility] #Eos 0.06 10^3/uL 0.00-0.70 [facility] ([facility] #NRBC 0.00 10^3/uL 0.00-0.00 [facility] ([facility] RBC Morph Laboratory test result [facility] ([facility] Manual Diff Laboratory test result [facility] ([facility] ID Date Data Source [id number] 10/19/2019 10:01:00 AM EDT [facility] Name Value Range Interpretation Code Description Data Malathi rce(s) Supporting Document(s) Thyrotropin [Units/volume] in Serum or Plasma by Detec tion limit <= 0.05 mIU/L 2.38 uIU/mL 0.47 - 5.01 [facility] ID Date Data Source [id number] 10/19/2019 09:56:00 AM EDT [facility] Name Value Range Interpretation Code Description Data Malathi rce(s) Supporting Document(s) CVE PANEL [facility] LIPID PANEL Cholesterol [Mass/volume] in Serum or Plasma 150 MG/DL 131 - 200 [facility] Deprecated Triglyceride [Mass/volume] in Serum or Plasma 148 MG/DL 3 5 - 160 [facility] HDL 50 MG/DL 29 - 86 [facility] Cholesterol in LDL [Mass/volume] in Serum or Plasma by Direc t assay 85 mg/dL 65 - 175 [facility] Cholesterol.total/Cholesterol in HDL [Mass Ratio] in Serum o r Plasma 3.0 3.2 - 4.4 L [facility] LDL/HDL 1.70 1.47 - 3.22 [facility] ital CVE RISK CHOL/HDL LDL/HDLMEN: 1/2 AVERAGE 3.43 1.00 AVERAGE 4.97 3.55 2X AVERAGE 9.55 6.25 3X AVERAGE 23.99 7.99WOMEN: 1/2 AVERAGE 3.27 1.47 AVERAGE 4.44 3.22 2X AVERAGE 7.05 5.03 3X AVERAGE 11.04 6.14 ID Date Data Source [id number] 10/19/2019 09:56:00 AM EDT [facility] Name Value Range Interpretation Code Description Data Malathi rce(s) Supporting Document(s) Magnesium [Mass/volume] in Serum or Plasma 1.6 MG/DL 1.7 - 2.2 L [facility] ID Date Data Source [id number] 10/19/2019 09:54:00 AM EDT [facility] Name Value Range Interpretation Code Description Data Malathi rce(s) Supporting Document(s) Hemoglobin A1c/Hemoglobin.total in Blood 7.0 % 4.4 - 6.1 H [facility] {A1]{HB] ID Date Data Source [id number] 10/19/2019 04:28:00 AM EDT [facility] Name Value Range Interpretation Code Description Data Malathi rce(s) Supporting Document(s) Lipase [Enzymatic activity/volume] in Serum or Plasma 20 U/L 13 - 60 [facility] ID Date Data Source [id number] 10/19/2019 04:28:00 AM EDT [facility] Name Value Range Interpretation Code Description Data Malathi rce(s) Supporting Document(s) COMPREHENSIVE METABOLIC PANEL [facility] COMPREHENSIVE METABOLIC PANEL Sodium [Moles/volume] in Serum or Plasma 138 mEq/L 134 - 153 [facility] Potassium [Moles/volume] in Serum or Plasma 4.0 mEq/L 3.6 - 5.0 [facility] Chloride [Moles/volume] in Serum or Plasma 98 mEq/L 98 - 107 [facility] Carbon dioxide, total [Moles/volume] in Serum or Plasma 27 MEQ/L 22 - 30 [facility] Glucose [Mass/volume] in Serum or Plasma 225 MG/DL 65 - 110 H [facility] BUN 14 MG/DL 7 - 21 [facility] Creatinine [Mass/volume] in Serum or Plasma 1.0 MG/DL 0.7 - 1.5 [facility] BUN/CREAT 14 8 - 27 [facility] Protein [Mass/volume] in Serum or Plasma 7.5 G/DL 6.3 - 8.2 [facility] Albumin [Mass/volume] in Serum or Plasma 4.7 G/DL 3.9 - 5.0 [facility] Globulin [Mass/volume] in Serum by calculation 2.8 GM/DL 2.4 - 3.2 [facility] A/G RATIO 1.7 0.8 - 2.0 [facility] Calcium [Mass/volume] in Serum or Plasma 9.7 MG/DL 8.4 - 10.2 [facility] Bilirubin.total [Mass/volume] in Serum or Plasma <0.7 MG/DL 0.2 - 1.3 [facility] Alkaline phosphatase [Enzymatic activity/volume] in Serum or Plasma 87 U/L 38 - 126 [facility] Aspartate aminotransferase [Enzymatic activity/volume] in Serum or Plasma 17 U/L 5 - 40 [facility] Alanine aminotransferase [Enzymatic activity/volume] in Seru m or Plasma 9 U/L 7 - 56 [facility] Anion gap 3 in Serum or Plasma 13.0 mmol/L 8.0 - 16.0 [facility]GE 69 [facility] 58 mL/min [facility] AFR AMER GFR >60 [facility] Male GFR In terprentation 20-49 yrs >60 mL/min Normal 50-59 yrs >56 mL/min Normal 60-69 yrs >49 mL/min Normal 70-79yrs >42 mL/min Normal 80 and above >35 mL/min Normal Female GFR Interpretation 20-39 yrs >60 mL/min Normal 40-49 yrs >58 mL/min Normal 50-59 yrs >51 mL/min Normal 60-69 yrs >45 mL/min Normal 70-79 yrs >39 mL/min Normal 80 and above >32 mL/min Normal ID Date Data Source [id number] 10/19/2019 04:27:00 AM EDT [facility] Name Value Range Interpretation Code Description Data Malathi rce(s) Supporting Document(s) BNP 291 PG/ML 0 - 125 [facility] al ID Date Data Source [id number] 10/19/2019 04:22:00 AM EDT [facility] Name Value Range Interpretation Code Description Data Malathi rce(s) Supporting Document(s) TROPONIN T 0.01 NG/ML 0.00 - 0.10 [facility] spital TROPONIN T0.1 ng/ml Recommended as the c linical threshold value forTroponin T. ID Date Data Source [id number] 10/19/2019 04:16:00 AM T [facility] Value Range Interpretation Code Description Data Malathi rce(s) Supporting Document(s) Fibrin D-dimer FEU [Mass/volume] in Platelet poor plasma 0.45 ug /mL 0.27 - 0.50 [facility] ID Date Data Source [id number] 10/19/2019 04:10:00 AM EDT [facility] Name Value Range Interpretation Code Description Data Malathi rce(s) Supporting Document(s) CBC W/AUTOMATED DIFF [facility] COMPLETE BLOOD COUNT Leukocytes [#/volume] in Blood by Automated count 8.3 10^3/uL 4.2 - 1 1.0 [facility] Erythrocytes [#/volume] in Blood by Automated count 4.34 10^6/uL 4. 20 - 5.40 [facility] Hemoglobin [Mass/volume] in Blood 12.3 g/dL 12.0 - 16.0 [facility] Hematocrit [Volume Fraction] of Blood by Automated count 38.2 % 3 7.0 - 47.0 [facility] Erythrocyte mean corpuscular volume [Entitic volume] by Auto mated count 88.0 fL 81.0 - 101 [facility] Erythrocyte mean corpuscular hemoglobin [Entitic mass] by Automated count 28.3 pg 27.0 - 34.0 [facility] Erythrocyte mean corpuscular hemoglobin concentration [Mass/volume] by Automated count 32.2 g/dL 31.0 - 36.0 [facility] Erythrocyte distribution width [Ratio] by Automated count 13.3 % 11.5 - 14.5 [facility] Platelets [#/volume] in Blood by Automated count 226 10^3/uL 150 - 45 0 [facility] Platelet mean volume [Entitic volume] in Blood by Automated count 10.1 fL 7.4 - 10.4 [facility] Neutrophils/100 leukocytes in Blood by Automated count 81.9 % 37. 0 - 80.0 H [facility] Lymphocytes/100 leukocytes in Blood by Manual count 11.3 % 25.0 - 40.0 L [facility] Monocytes/100 leukocytes in Blood by Automated count 5.5 % 3.0 - 8.0 [facility] Eosinophils/100 leukocytes in Blood by Automated count 0.7 % 0.0 - 7.0 [facility] Basophils/100 leukocytes in Blood by Automated count 0.4 % 0.0 - 2.5 [facility] %IG 0.2 % 0.0 - [facility] % 0.0 - 0.0 [facility] Neutrophils [#/volume] in Blood by Automated count 6.80 10^3/uL 2.00 - 6.90 [facility] Lymphocytes [#/volume] in Blood by Automated count 0.94 10^3/uL 0.60 - 3.40 [facility] Monocytes [#/volume] in Blood by Automated count 0.46 10^3/uL 0.00 - 0.90 [facility] Eosinophils [#/volume] in Blood by Automated count 0.06 10^3/uL 0.00 - 0.70 [facility] Basophils [#/volume] in Blood by Automated count 0.03 10^3/uL 0.00 - 0.20 [facility] #IG 0.02 10^3/uL 0.00 - 0.10 [facility] #NRBC 0.00 10^3/uL 0.00 - 0.00 [facility] MANUAL DIFF NOT INDICATED [facility] RBC MORPH NOT INDICATED [facility] ID Date Data Source [id number] 08/27/2019 01:55:00 PM EDT [facility] ([facility] Name Value Range Interpretation Code Description Data Malathi rce(s) Supporting Document(s) Laboratory test finding (navigational concept) Laboratory test result [facility] ([facility] Testing was performed using the katheryn(R) SARS-CoV-2 test. This test was developed and its performance characteristics determined by [facility]. This test has not been FDA cleared or approved. This test has been authorized by FDA under an Emergency Use Authorization (EUA). This test is only authorized for the duration of time the declaration that circumstances exist justifying the authorization of the emergency use of in vitro diagnostic tests for detection of SARS-CoV-2 virus and/or diagnosis of COVID-19 infection under section 564(b)(1) of the Act, 21 U.S.C. 360bbb-3(b)(1), unless the authorization is terminated or revoked sooner. Performed at: RN - [facility] [address] [id number] [employer]: Cadence Dumont MD, Phone: [phone] Not Detected ID Date Data Source [id number] 08/27/2019 01:55:00 PM EDT [facility] Name Value Range Interpretation Code Description Data Malathi rce(s) Supporting Document(s) SARS CORONAVIRUS 2 RNA [facility] This lab was ordered by [facility] and reported by [facility]. ID Date Data Source [id number] 07/01/2019 10:05:00 AM EST [facility] ([facility] Name Value Range Interpretation Code Description Data Malathi rce(s) Supporting Document(s) Hemoglobin A1c/Hemoglobin.total in Blood 6.7 % 4.50-6.20 Above high normal [facility] ([facility] ID Date Data Source [id number] 07/01/2019 10:05:00 AM EST [facility] ([facility] Name Value Range Interpretation Code Description Data Malathi rce(s) Supporting Document(s) Alb 80 mg/L [facility] ([facility] Creatinine, Urine 300 mg/dL 10-300 [facility] ([facility] A/C Ratio Laboratory test result [facility] ([facility] ID Date Data Source [id number] 07/01/2019 10:04:00 AM EST [facility] ([facility] Name Value Range Interpretation Code Description Data Malathi rce(s) Supporting Document(s) Thyrotropin [Units/volume] in Serum or Plasma 4.820 ulU/mL 0. 60-4.8 Above high normal [facility] ([facility] ) ID Date Data Source [id number] 07/01/2019 10:02:00 AM EST [facility] ([facility] Name Value Range Interpretation Code Description Data Malathi rce(s) Supporting Document(s) Glu 154 mg/dL 70-110 Above high normal [facility] ([facility] CHRONIC KIDNEY DISEASE STAGING PER NKF: MALE GFR INTERPRETATION: 20-49 YRS: [...] mL/min Normal 80 and above >32 mL/min Normal BUN/Creatinine Ratio 15.4 Calc [facility] ([facility] CHRONIC KIDNEY DISEASE STAGING PER NKF: MALE GFR INTERPRETATION: 20-49 YRS: [...] mL/min Normal 80 and above >32 mL/min Normal BUN 13 mg/dL 8-23 [facility] ([facility] CHRONIC KIDNEY DISEASE STAGING PER NKF: MALE GFR INTERPRETATION: 20-49 YRS: [...] mL/min Normal 80 and above >32 mL/min Normal Creat 0.8 mg/dL 0.5-1.0 [facility] CHRONIC KIDNEY DISEASE STAGING PER NKF: MALE GFR INTERPRETATION: 20-49 YRS: [...] mL/min Normal 80 and above >32 mL/min Normal K 4.0 mmol/L 3.5-5.1 [facility] ([facility] CHRONIC KIDNEY DISEASE STAGING PER NKF: MALE GFR INTERPRETATION: 20-49 YRS: [...] mL/min Normal 80 and above >32 mL/min Normal Na 137 mmol/L 136-145 [facility] ([facility] CHRONIC KIDNEY DISEASE STAGING PER NKF: MALE GFR INTERPRETATION: 20-49 YRS: [...] mL/min Normal 80 and above >32 mL/min Normal Co2 21.2 mmol/L 22.0-29.0 Below low normal [facility] ([facility] CHRONIC KIDNEY DISEASE STAGING PER NKF: MALE GFR INTERPRETATION: 20-49 YRS: [...] mL/min Normal 80 and above >32 mL/min Normal CL 103.5 mmol/L 98.0-107.0 [facility] ([facility] CHRONIC KIDNEY DISEASE STAGING PER NKF: MALE GFR INTERPRETATION: 20-49 YRS: [...] mL/min Normal 80 and above >32 mL/min Normal CA 8.9 mg/dL 8.6-10.2 [facility] CHRONIC KIDNEY DISEASE STAGING PER NKF: MALE GFR INTERPRETATION: 20-49 YRS: [...] mL/min Normal 80 and above >32 mL/min Normal Alb 4.0 g/dL 3.4-4.8 [facility] ([facility] CHRONIC KIDNEY DISEASE STAGING PER NKF: MALE GFR INTERPRETATION: 20-49 YRS: [...] mL/min Normal 80 and above >32 mL/min Normal TP 6.5 g/dL 6.6-8.7 Below low normal [facility] ( [facility] CHRONIC KIDNEY DISEASE STAGING PER NKF: MALE GFR INTERPRETATION: 20-49 YRS: [...] mL/min Normal 80 and above >32 mL/min Normal A/G Ratio 1.6 Calc [facility] ([facility] CHRONIC KIDNEY DISEASE STAGING PER NKF: MALE GFR INTERPRETATION: 20-49 YRS: [...] mL/min Normal 80 and above >32 mL/min Normal Alp 73.0 U/L 35-129 [facility] ([facility] CHRONIC KIDNEY DISEASE STAGING PER NKF: MALE GFR INTERPRETATION: 20-49 YRS: [...] mL/min Normal 80 and above >32 mL/min Normal Globulin 2.6 Calc [facility] ([facility] CHRONIC KIDNEY DISEASE STAGING PER NKF: MALE GFR INTERPRETATION: 20-49 YRS: [...] mL/min Normal 80 and above >32 mL/min Normal Alt (SGPT) 13 U/L 0-41 [facility] ([facility] CHRONIC KIDNEY DISEASE STAGING PER NKF: MALE GFR INTERPRETATION: 20-49 YRS: [...] mL/min Normal 80 and above >32 mL/min Normal Ast (Sgot) 17 U/L 0-40 [facility] ([facility] CHRONIC KIDNEY DISEASE STAGING PER NKF: MALE GFR INTERPRETATION: 20-49 YRS: [...] mL/min Normal 80 and above >32 mL/min Normal Osmolality-Calculated 277.1 Calc [facility] ([facility] CHRONIC KIDNEY DISEASE STAGING PER NKF: MALE GFR INTERPRETATION: 20-49 YRS: [...] mL/min Normal 80 and above >32 mL/min Normal Tbili 0.42 mg/dL 0.0-1.2 [facility] ([facility] CHRONIC KIDNEY DISEASE STAGING PER NKF: MALE GFR INTERPRETATION: 20-49 YRS: [...] mL/min Normal 80 and above >32 mL/min Normal eGFR 85 # [facility] ( [facility] CHRONIC KIDNEY DISEASE STAGING PER NKF: MALE GFR INTERPRETATION: 20-49 YRS: [...] mL/min Normal 80 and above >32 mL/min Normal eGFR Non-Afr. [place] 74 # [facility] ([facility] CHRONIC KIDNEY DISEASE STAGING PER NKF: MALE GFR INTERPRETATION: 20-49 YRS: [...] mL/min Normal 80 and above >32 mL/min Normal Anion Gap 16 mmol/L [facility] ([facility] CHRONIC KIDNEY DISEASE STAGING PER NKF: MALE GFR INTERPRETATION: 20-49 YRS: [...] mL/min Normal 80 and above >32 mL/min Normal Procedure Vital Signs ID Date Data Source UNK Name Value Range Interpretation Code Description Data Source(s) Oxygen saturation in Arterial blood by Pulse oximetry 98 % 98 % [facility] ([facility] Body mass index (BMI) [Ratio] 47.9 kg/m2 47.9 k g/m2 [facility] ([facility] [place] body weight 110 [lb_av] 110 [lb_av] [facility] ([facility] Body weight 262.00 [lb_av] 262.00 [lb_av] [facility] T ([facility] Body height 62 [in_i] 62 [in_i] [facility] ([facility] 5'2" Respiratory rate 14 /min 14 /min [facility] ( [facility] Heart rate 76 /min 76 /min [facility] ([facility] Body temperature 96.6 [degF] 96.6 [degF] [facility] ([facility] Diastolic blood pressure 66 mm[Hg] 66 mm[Hg] [facility] ([facility] Systolic blood pressure 110 mm[Hg] 110 mm[Hg] Shelby VILLATORO ([facility] Body weight 117.936 kg 117.936 kg [facility] ([facility], ) [place] body weight 120 [lb_av] 120 [lb_av] [facility] T ([facility], ) Body mass index (BMI) [Ratio] 44.6 kg/m2 44.6 k g/m2 [facility] ([facility], ) Body weight 260.00 [lb_av] 260.00 [lb_av] [facility] T ([facility]) Body height 64 [in_i] 64 [in_i] [facility] ([facility]) 5'4" Body temperature 96.9 [degF] 96.9 [degF] [facility] ([facility]) Oxygen saturation in Arterial blood by Pulse oximetry 97 % 97 % [facility] ([facility] Body mass index (BMI) [Ratio] 47.5 kg/m2 47.5 k g/m2 [facility] ([facility] [place] body weight 110 [lb_av] 110 [lb_av] [facility] T ([facility] Body weight 260.00 [lb_av] 260.00 [lb_av] MED[facility] T ([facility] Body height 62 [in_i] 62 [in_i] [facility] ([facility] 5'2" Respiratory rate 14 /min 14 /min [facility] ( [facility] Heart rate 78 /min 78 /min [facility] ([facility] Body temperature 97.8 [degF] 97.8 [degF] [facility] ([facility] Diastolic blood pressure 54 mm[Hg] 54 mm[Hg] [facility] ([facility] Systolic blood pressure 102 mm[Hg] 102 mm[Hg] M [facility] ([facility] Oxygen saturation in Arterial blood by Pulse oximetry 95 % 95 % [facility] ([facility] Body mass index (BMI) [Ratio] 47.0 kg/m2 47.0 k g/m2 [facility] ([facility] [place] body weight 110 [lb_av] 110 [lb_av] MED[facility] T ([facility] Body weight 257.00 [lb_av] 257.00 [lb_av] MED[facility] T ([facility] Body height 62 [in_i] 62 [in_i] [facility] ([facility] 5'2" Respiratory rate 18 /min 18 /min [facility] ( [facility] Heart rate 90 /min 90 /min [facility] ([facility] Body temperature 97.0 [degF] 97.0 [degF] [facility] ([facility] Diastolic blood pressure 70 mm[Hg] 70 mm[Hg] [facility] ([facility] Systolic blood pressure 128 mm[Hg] 128 mm[Hg] M EDMARIN ([facility] Oxygen saturation in Arterial blood by Pulse oximetry 96 % 96 % [facility] ([facility] Body mass index (BMI) [Ratio] 45.7 kg/m2 45.7 k g/m2 [facility] ([facility] Body weight 250.00 [lb_av] 250.00 [lb_av] MED[facility] T ([facility] Body height 62 [in_i] 62 [in_i] [facility] ([facility] 5'2" Respiratory rate 18 /min 18 /min [facility] ( [facility] Heart rate 96 /min 96 /min [facility] ([facility] Body temperature 97.8 [degF] 97.8 [degF] [facility] ([facility] Diastolic blood pressure 68 mm[Hg] 68 mm[Hg] [facility] ([facility] Systolic blood pressure 118 mm[Hg] 118 mm[Hg] M [facility] ([facility] ID Date Data Source [id number] 10/26/2019 10:11:23 AM EDT [facility] Name Value Range Interpretation Code Description Data Source(s) WEIGHT RECORDED 266.80 pounds 266.80 pounds [facility] Height 64 Inches 064 Inches [facility]
[2020-06-08] MEDS ORDERED: dexameTHASONE 20MG/5ML VIAL (J1100 PER 1MG) IV ONE (17:15)
--- NOTE | 2020-06-08 18:46 | HPEPDOC ---
[facility] Medical History & Physical Date of Admission Jun 08, 2020 Date of Service: Jun 08, 2020 History and Physical CHIEF COMPLAINT: Nausea and vomiting HISTORY OF PRESENT ILLNESS: 70-year-old female history of COPD, CAD, diabetes, who was diagnosed with Covid approximately 7 days ago she lives by herself at home she initially thought she had a sinus infection her symptoms started with a cough as well as fevers and ch ills, she later developed nausea and vomiting and diarrhea and increased shortness of breath which prompted her to present to the hospital. At the hospital she says she feels significantly better after nebulizer treatment. She is currently on 2 L of oxygen by nasal cannula which stays improve her shortness of breath. She is feeling more comfortable now but feels too weak to go home. She lives by herself and has no sick contacts uses a walker to get around. Patient will be admitted to the medical service for further management. PAST MEDICAL/SURGICAL HISTORY: COPD not requiring home oxygen Coronary artery disease patient unsure if she's had stenting in the past Diabetes not insulin-dependent Hypothyroidism JOSSIE GERD Arthritis Cholecystectomy Left knee replacement SOCIAL HISTORY: Denies alcohol use quit 15 years ago Denies tobacco use Denies illicit drug use FAMILY HISTORY: Reviewed and noncontributory to this admission there is no sick contacts who have Covid at home ALLERGIES: Please see below. REVIEW OF SYSTEMS: 10 point review of systems complete all negative otherwise stated in HPI HOME MEDICATIONS: Please see below. PHYSICAL EXAMINATION: Constitutional: Awake and alert, in no apparent distress ENT: Sclera are clear. Mucosa is moist. Respiratory: Lungs diminished breath sounds bilaterally. No respiratory distress. No use of accessory muscles. On 2 L oxygen of nasal cannula Cardiovascular: RRR S1 and S2 are normal, no murmur Gastrointestinal: Abdomen is soft, non distended, non tender Musculoskeletal: Trace lower extremity edema Neurologic: No focal neurological deficit Mental Status: A&O x3, normal affect Skin: Warm, dry LABORATORY DATA: See below. IMAGING: Chest x-ray impression: Cardiomegaly and lung field opacities as described above. Findings consistent with CHF. Certainly, pneumonia cannot be ruled out. MICROBIOLOGY: Please see below. ASSESSMENT/PLAN 70-year-old female history of COPD, CAD, diabetes, htn, who was diagnosed with Covid was admitted for increased shortness of breath and weakness requiring supplemental oxygen and admitted for management of Covid pneumonia # Shortness of breath 2/2 Covid 19 infection: Has multiple risk factors for poor outcomes with Covid 19 infection such as obesity, hypertension and diabetes. Initial inflammatory markers elevated. Trend inflammatory markers. IV Decadron daily. Discuss in AM with pulm if she should receive rimdasivir. Lovenox. O2 target 90% or better. PT/OT. No PNA seen no need for antibiotics for now, follow-up pro-calcitonin. # CAD: Continue aspirin and statin # DM: ISS. Frequent Accu-Cheks. Hypoglycemic precautions. # COPD: Not in exacerbation inhalers as needed # Hypertension: Continue home meds. Monitor and titrate # Hypothyroidism: resume Synthroid. 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 Vital Signs Vital Signs Date Time Temp Pulse Resp B/P (MAP) Pulse Ox O2 Delivery O2 Flow Rate FiO2 06/08/20 18:04 78 18 06/08/20 18:03 97 Nasal Cannula 2.0 06/08/20 18:00 137/74 (95) 06/08/20 16:22 98.7 Laboratory Data Labs 24H Laboratory Tests 2 06/08/20 16:16: Immature Granulocyte % (Auto) 0.7, Neutrophils (%) (Auto) 77.1H, Lymphocytes (%) (Auto) 13.3L, Monocytes (%) (Auto) 7.9H, Eosinophils (%) (Auto) 0.8, Basophils (%) (Auto) 0.2, Neutrophils # (Auto) 4.6, Lymphocytes # (Auto) 0.8L, Monocytes # (Auto) 0.5, Eosinophils # (Auto) 0.1, Basophils # (Auto) 0.0, Nucleated Red Blood Cells % (auto) 0.0, Prothrombin Time 14.3H, Prothromb Time International Ratio 1.09, D-Dimer, Quantitative 3846.04H, Anion Gap 11, Glomerular Filtration Rate > 60.0, Lactic Acid Level 2.5*H, Calcium Level 8.5L, Ferritin 839H, Total Bilirubin 0.6, Direct Bilirubin 0.2, Aspartate Amino Transf (AST/SGOT) 31, Alanine Aminotransferase (ALT/SGPT) 23, Alkaline Phosphatase 53, Lactate Dehydrogenase 252H, Total Creatine Kinase 188, Creatine Kinase MB 2.0, Creatine Kinase MB Relative Index 1.06, Troponin I < 0.02, C-Reactive Protein, Quantitative 17.10H, MM-Qlb-W-Type Natriuretic Peptide 2099H, Total Protein 6.2L, Albumin 2.5L, Albumin/Globulin Ratio 0.7L, Thyroid Stimulating Hormone (TSH) 2.680, Thyroxine (T4) 10.6 CBC/BMP Laboratory Tests 06/08/20 16:16 Microbiology Microbiology 06/08/20 Blood Culture, Received Pending 06/08/20 Blood Culture, Received Pending Home Medications Scheduled Aspirin (Aspir 81) 81 Mg Tab, 81 MG PO DAILY Buspirone HCl (Buspirone HCl) 15 Mg Tab, 15 MG PO DAILY Levothyroxine Sodium (Levothyroxine Sodium) 88 Mcg Tab, 1 TAB PO DAILY Lorazepam (Lorazepam) 1 Mg Tab, 1 MG PO TID Metformin HCl (Metformin HCl) 850 Mg Tab, 850 MG PO DAILY Montelukast Sodium (Singulair) 10 Mg Tab, 10 MG PO DAILY Ramipril (Ramipril) 5 Mg Cap, 5 MG PO DAILY Scheduled PRN Albuterol Sulfate (Ventolin Hfa) 108 Mcg/Act Aer, 2 PUFFS PO for SHORTNESS OF BREATH Miscellaneous Medications Amitriptyline HCl (Amitriptyline HCl) 50 Mg Tab, 50 MG PO Bisoprolol Fumarate (Bisoprolol Fumarate) 10 Mg Tab, 10 MG PO Ranitidine HCl (Ranitidine HCl) 150 Mg Tab, 1 TAB PO Allergies Coded Allergies: No Known Allergies (Unverified , 09/17/16) A-FIB/CHADSVASC A-FIB History Current/History of A-Fib/PAF?: No RADHASEELHAM Cho MD Jun 08, 2020 18:46
[2020-06-08] MEDS ORDERED: METF850T4 PO (19:08)
[2020-06-08] MEDS ORDERED: BISO10TA14 PO (19:08)
[2020-06-08] MEDS ORDERED: FLON1SPR NARES (19:08)
[2020-06-08] MEDS ORDERED: VENTAER INH (19:08)
[2020-06-08] MEDS ORDERED: BUSP15TA47 PO (19:08)
[2020-06-08] MEDS ORDERED: RAMI1CAP24 PO (19:08)
[2020-06-08] MEDS ORDERED: LORA1TAB4 PO (19:08)
[2020-06-08] MEDS ORDERED: AMIT50TA PO (19:08)
[2020-06-08] MEDS ORDERED: SYNT75TA PO (19:08)
[2020-06-08] MEDS ORDERED: ROSU10TA6 PO (19:08)
[2020-06-08] MEDS ORDERED: ASPI81TA26 PO (19:08)
[2020-06-08] MEDS ORDERED: CETI-24 PO (19:08)
[2020-06-08] MEDS ORDERED: MONT5TAB2 PO (19:08)
[2020-06-08] MEDS ORDERED: GLUCAGON INJ 1MG VIAL SC PRN (19:15)
[2020-06-08] MEDS ORDERED: ALBUTEROL 90 MCG/ACT 8GM HFA INHALER INH PRN (19:15)
[2020-06-08] MEDS ORDERED: GLUCOSE 4GM CHEW TABLET PO PRN (19:15)
[2020-06-08] MEDS ORDERED: FLUTICASONE PROP 0.05% NASAL SPRAY 16 GM (FLONASE) NARES PRN (19:15)
[2020-06-08] MEDS ORDERED: DEXTROSE 50% 50 ML SYRINGE IV PRN (19:15)
--- NOTE | 2020-06-08 19:17 | ECGEPIP ---
[facility] - ED Test Date: 2020-06-08 Pat Name: CONCEPCIÓN CAO Department: Room: - Gender: Female Metabolic Specialist: hiram : 1950 Requested By: TERA Thornton Order Number: [id number] Reading MD: Dary Mcclendon Measurements Intervals [place] Rate: 70 P: 61 WA: 181 QRS: 18 QRSD: 102 T: 31 QT: 420 QTc: 455 Interpretive Statements SINUS RHYTHM NSTTW abnormalities Electronically Signed on 06-08-2020 19:16:59 EST by Dary Mcclendon
--- OUTSIDE RECORDS SUMMARY | 2020-06-08 19:27 | CCD ---
Author Author [facility] Organization [facility] Address Unknown Phone Unavailable Care Team Providers Care Linux Unix System Administrator Name Role Phone Constantine LAMBERT MD Unavailable [...] Unavailable Unavailable Caroline Aiken MD Unavailable Unavailable Culebra Falanga, A Dahsa DEBARKER OPERATOR Unavailable Unavailable Culebra Falanga, A Dasha DEBARKER OPERATOR Unavailable Unavailable Vladimir Falanga, A Dasha DEBARKER OPERATOR Unavailable Unavailable Culebra Falanga, A Dasha DEBARKER OPERATOR Unavailable Unavailable Vladimir Falanga, A Dasha DEBARKER OPERATOR Unavailable Unavailable Culebra Falanga, A Dasha DEBARKER OPERATOR Unavailable Unavailable Vladimir Falanga, A Dasha DEBARKER OPERATOR Unavailable Unavailable Culebra Falanga, A Dasha DEBARKER OPERATOR Unavailable Unavailable Culebra Falanga, A Dasha DEBARKER OPERATOR Unavailable Unavailable Culebra Falanga, A Dasha DEBARKER OPERATOR Unavailable Unavailable Vladimir Falanga, A Dasha DEBARKER OPERATOR Unavailable Unavailable Vladimir Falanga, A Dasha DEBARKER OPERATOR Unavailable Unavailable Vladimir Falanga, A Dasha DEBARKER OPERATOR Unavailable Unavailable Vladimir Falanga, A Dasha DEBARKER OPERATOR Unavailable Unavailable Vladimir Falanga, A Dasha DEBARKER OPERATOR Unavailable Unavailable Culebra Falanga, A Dasha DEBARKER OPERATOR Unavailable Unavailable Culebra Falanga, A Dasha DEBARKER OPERATOR Unavailable Unavailable Vladimir Falanga, A Dasha DEBARKER OPERATOR Unavailable Unavailable Vladimir Falanga, A Dasha DEBARKER OPERATOR Unavailable Unavailable Culebra Falanga, A Dasha DEBARKER OPERATOR Unavailable Unavailable Culebra Falanga, A Dasha DEBARKER OPERATOR Unavailable Unavailable Vladimir Falanga, A Dasha DEBARKER OPERATOR Unavailable Unavailable Culebra Falanga, A Dasha DEBARKER OPERATOR Unavailable Unavailable Vladimir Falanga, A Dasha DEBARKER OPERATOR Unavailable Unavailable Culebra Falanga, A Dasha DEBARKER OPERATOR Unavailable Unavailable Vladimir Falanga, A Dasha DEBARKER OPERATOR Unavailable Unavailable Culebra Falanga, A Dasha DEBARKER OPERATOR Unavailable Unavailable Vladimir Falanga, A Dasha DEBARKER OPERATOR Unavailable Unavailable Culebra Falanga, A Dasha DEBARKER OPERATOR Unavailable Unavailable Culebra Falanga, A Dasha DEBARKER OPERATOR Unavailable Unavailable Fish, J Maulik Unavailable Unavailable [...] Fish, J Maulik Unavailable Unavailable Fish, J Mauilk Unavailable Unavailable Fish, J Maulik Unavailable Unavailable [...] Fish, J Maulik Unavailable Unavailable Fish, J Mualik Unavailable Unavailable Fish, J Maulik Unavailable Unavailable Fish, J Maulik Unavailable Unavailable VENERUS, J OTONIEL SHI Unavailable Unavailable VENERUS, J OTONIEL SHI Unavailable Unavailable VENERUS, J OTONIEL MD Unavailable [...] is protected by Article 27-F of the [facility] Public Health law. If you continue you may have access to information: Regarding HIV / AIDS; Provided by facilities licensed or operated by the [facility] Office of Mental Health; or Provided by the [facility] Office for People With Developmental Disabilities. If such information is present, then the following [facility] mandated warning applies: This information has [...] law may result in a fine or fdc sentence or both. A general authorization for the release of medical or other information is NOT sufficient authorization for further disc losure. Allergies and Adverse Reactions Type Description Substance Reaction Status Data Source(s ) BRANDNAME DEMEROL HYDROCHLORIDE DEMEROL HYDROCHLORIDE UNSURE [facility] Drug allergy PROMETHAZINE PROMETHAZINE DISSORIENTED [facility] Family History Family Member Name Family Member Gender Family Member Status Date o f Status Description Data Source(s) Unknown Male Problem [facility] ([facility] ) Unknown Unknown Problem [facility] ([facility], ) Encounters Encounter Providers Location Date Indications Data Source(s ) Outpatient Attender: CK LAMBERT MD [place] [facility] 01:30:00 PM EST [facility] ([facility] Outpatient Attender: Ck Sorensen/Sunny/Osvaldo/Yamileth easley 02/29/2020 02:30:00 PM EDT MED[facility] ([facility], ) Outpatient Attender: CK LAMBERT MD [place] [facility] 10:40:00 AM EDT [facility] ([facility] Outpatient Attender: CK LAMBERT MD [place] [facility] 10:20:00 AM EDT [facility] ([facility] Outpatient Attender: Dasha stapleton FNPAttender: OTONIEL REYES MDConsultant: Maulik Alvarenga 10/19/2019 03:30:00 AM EDT - 10/21/2019 11:55:[address] [facility] Patient discharged. Outpatient Attender: CK LAMBERT MD [place] [facility] 08:30:00 AM EST [facility] ([facility] Immunizations Vaccine Date Status [...] 04/28/2020 12:00:00 AM EST ORAL active MED[facility] ([facility] 150 mg 01/31/2020 12:00:00 AM EDT tablet 1 TAKE ONE TABLET BY MOUTH EVERY DAY TAKE ONE TABLET BY MOUTH EVERY DAY SOLD: 01/31/2020 [facility] 12 HR Guaifenesin 600 MG Extended Release Oral Tablet GUAIFE NESIN 01/31/2020 12:00:00 AM EDT tablet extended release 12hr 20 LARRY E ONE TABLET BY MOUTH EVERY 12 HOURS FOR 10 DAYS TAKE ONE TABLET BY MOUTH EVERY 12 HOURS FOR 10 DAYS SO LD: 01/31/2020 [facility] 875-125 mg 01/31/2020 12:00:00 AM EDT tablet 20 TAKE ONE TABLET BY MOUTH TWICE A DAY FOR 10 DAYS TAKE ONE TABLET BY MOUTH TWICE A DAY FOR 10 DAYS SOLD: 01/31/2020 [facility] Triamcinolone Acetonide 1 MG/ML Topical Cream Triamcinolone Acetonide 12/29/2019 12:00:00 AM EDT active M EDENT ([facility] montelukast 10 MG Oral Tablet MONTELUKAST SODIUM 09/06/2019 12:0 0:00 AM EDT tablet 30 TAKE ONE TABLET BY MOUTH EVERY D AY TAKE ONE TABLET BY MOUTH EVERY DAY SOLD: 09/06/2019 [facility] 10 mg 09/06/2019 12:00:00 AM [...] System 07/01/2019 12:00:00 AM EST completed [facility] ([facility] Lancets 07/01/2019 12:00:00 AM EST completed MED[facility] ([facility] Rosuvastatin calcium 10 MG Oral Tablet Rosuvastatin Calcium 07/01/2019 12:00:00 AM EST ORAL active MED[facility] ([facility] 1 mg 06/04/2019 12:00:00 AM [...] type / Coverage type Policy ID Covered green party ID Covered green party's relationship to garcia Policy Garcia Plan Information LIBIA [id number] SP [id number] MEDICARE [id number] SP [id number] MEDICARE PART A -O/P [id number] 18 [id number] MEDICAID -O/P EMERGENCY ROOM [id number] 18 [id number] MEDICAID [id number] SP [id number] Medicaid [place] Medigap Part B [id number] Self [id number] [place] [id number] Self [id number] MEDICARE [id number] SP [id number] M Medicaid [place] Medigap Part B [id number] Self [id number] [place] Medicare Primary [id number] Self [id number] Medicaid [place] Medigap Part B [id number] Self [id number] [place] Medicare Primary [id number] Self [id number] MEDICAID [id number] SP [id number] MEDICARE [id number] SP [id number] M Medicaid [place] Medigap Part B [id number] Self [id number] [place] Primary [id number] Self [id number] MEDICAID [id number] SP [id number] MEDICARE [id number] -M Medicaid [place] Medigap Part B [id number] Self [id number] [place] Primary [id number] Self [id number] MEDICARE C [id number] S [id number] M MEDICAID M [id number] S [id number] Medicaid [place] Medigap Part B [id number] Self [id number] [place] Medicare Primary [id number] Self [id number] Medicaid [place] Medigap Part B [id number] Self [id number] Medicare [place]/N[place] Medicare Primary [id number] Self [id number] MEDICARE PI PI MEDICAID PI PI MEDICAID [id number] Amy [id number] MEDICARE [id number] Amy [id number] M MEDICARE [id number] SP [id number] A MEDICARE C [id number] S [id number] A MEDICAID [id number] SP [id number] Problems, Conditions, and Diagnoses Code Display Name Description Problem Type Effective Dates Data Source(s) E119 Type 2 diabetes mellitus without complic ations Type 2 diabetes mellitus without complications Diagnosis 10/19/2019 03:30:00 AM EDT [facility] G4730 Sleep apnea, unspecified Sleep apnea, unspecified Diag nosis 10/19/2019 03:30:[address] [facility] Z6842 Body mass index (BMI) 45.0-49.9, adult B bhavya mass index (BMI) 45.0-49.9, adult Diagnosis 10/19/2019 03:30:[address] [facility] E669 Obesity, unspecified Obesity, unspecified Diagnosis 10/19/2019 03:30:[address] [facility] F339 Major depressive disorder, recurrent, un specified Major depressive disorder, recurrent, unspecified Diagnosis 10/19/2019 03:30:[address] [facility] F419 Anxiety disorder, unspecified Anxiety disorder, unspec ified Diagnosis 10/19/2019 03:30:[address] [facility] M797 Fibromyalgia Fibromyalgia Diagnosis 10/19/2019 03:30:[address] [facility] I10 Essential (primary) hypertension Essential (primary) h ypertension Diagnosis [facility] Chronic obstructive pulmonary disease, u nspecified Chronic obstructive pulmonary disease, unspecified Diagnosis 10/19/2019 03:30:00 AM EDT [facility] R0789 Other chest pain Other chest pain Diagnosis 10/19/2019 03 :30:[address] [facility] Surgeries/Procedures Procedure Description Date Indications Data Source(s) X-Ray Hip Unilateral With Pelvis 2-3 Views 02/29/2020 12:00:00 AM EDT [facility] ([facility] ) RADIOLOGIC EXAM KNEE COMPLETE 4/MORE VIEWS 02/29/2020 12:00:00 AM EDT [facility] ([facility]) Inject/Drain Arthrocentesis Major Joint/Bursa/Ganglion Cyst 02/29/2020 12:00:00 AM EDT [facility] ([facility]) Results ID Date Data Source [id number] 06/01/2020 12:00:00 AM EST NABEEL Name Value Range Interpretation Code Description Data Malathi rce(s) Supporting Document(s) SARS-CoV2 Rapid Antigen Positive [facility] This lab was ordered by [facility] and reported by [facility]. ID Date Data Source [id number] 04/28/2020 02:43:00 PM EST MED[facility] ([facility] Name Value Range Interpretation Code Description Data Malathi rce(s) Supporting Document(s) Hemoglobin A1c/Hemoglobin.total in Blood 6.7 % 4.40-6.10 Above high normal [facility] CHRONIC KIDNEY DISEASE [...] Serum or Plasma 3.217 ulU/mL 0.60-4.8 MED[facility] ([facility] CHRONIC KIDNEY DISEASE [...] 2-19 YEARS EXCLUSIVE. ID Date Data Source [id number] 04/28/2020 02:43:00 PM EST MEDENT ([facility] Name [...] Calc 75-129 Below low normal MED[facility] ( [facility] CHRONIC KIDNEY DISEASE STAGING PER [...] YEARS EXCLUSIVE. Cho/HDL Ratio 2.7 CALC MED[facility] ([facility] CHRONIC KIDNEY DISEASE STAGING [...] 2-19 YEARS EXCLUSIVE. ID Date Data Source [id number] 04/28/2020 02:43:00 PM EST MED[facility] ([facility] Name Value Range Interpretation Code Description Data Malathi rce(s) Supporting Document(s) Glu 177 mg/dL 70-110 Above high normal [facility] ([facility] CHRONIC KIDNEY DISEASE [...] YEARS EXCLUSIVE. BUN 16 mg/dL 8-23 [facility] ([facility] CHRONIC KIDNEY DISEASE [...] YEARS EXCLUSIVE. Na 137 mmol/L 136-145 [facility] CHRONIC KIDNEY DISEASE STAGING PER [...] YEARS EXCLUSIVE. BUN/Creatinine Ratio 18.2 CALC MEDENT ([facility] CHRONIC KIDNEY DISEASE STAGING [...] YEARS EXCLUSIVE. Co2 27.2 mmol/L 22.0-29.0 MED[facility] ([facility] CHRONIC KIDNEY DISEASE STAGING [...] YEARS EXCLUSIVE. CL 101.4 mmol/L 98.0-107.0 [facility] CHRONIC KIDNEY DISEASE STAGING PER [...] EXCLUSIVE. Tbili 0.29 mg/dL 0.0-1.2 [facility] ([facility] CHRONIC KIDNEY DISEASE STAGING [...] AGED 2-19 YEARS EXCLUSIVE. eGFR 74 # [facility] ( [facility] CHRONIC [...] INDIVIDUALA AGED 2-19 YEARS EXCLUSIVE. eGFR Non-Afr. Iranian 64 # [facility] ([facility] [...] 2-19 YEARS EXCLUSIVE. ID Date Data Source [id number] 12/29/2019 11:38:00 AM EDT MED[facility] ([facility] [...] [facility] ID Date Data Source [id number] 12/29/2019 11:38:00 AM EDT MED[facility] ([facility] Name [...] Associat es, P.C.) ID Date Data Source [id number] 12/29/2019 11:36:00 AM EDT MED[facility] ([facility] Name Value Range Interpretation Code Description Data Malathi rce(s) Supporting Document(s) Alb 10 mg/L 1-30 [facility] ([facility] Creatinine, Urine 100 mg/dL 10-300 [facility] ([facility] A/C Ratio Laboratory test result ME DENT ([facility] ID Date Data Source [id number] 12/29/2019 11:36:00 AM EDT [facility] ([facility] Name Value Range Interpretation Code Description Data Malathi rce(s) Supporting Document(s) Thyrotropin [Units/volume] in Serum or Plasma 3.775 ulU/mL 0.60-4.8 [facility] ([facility] ID Date Data Source [id number] 12/29/2019 11:35:00 AM EDT [facility] ([facility] Name Value Range Interpretation Code Description Data Malathi rce(s) Supporting Document(s) WBC 6.5 10E3/uL 4.1-10.9 [facility] ([facility] NORMAL RANGES Age WBC [...] HCT IS 5% LESS SOURCE FOR DATA: [employer] 1800 OPERATION MANUAL( AUTOMATED BLOOD COUNTS AND DIFF.) APPENDIX B-3 RBC 4.12 10E6/uL 4.20-6.30 Below low normal [facility] ([facility] NORMAL RANGES Age WBC [...] HCT IS 5% LESS SOURCE FOR DATA: [employer] 1800 OPERATION MANUAL( AUTOMATED BLOOD COUNTS AND DIFF.) APPENDIX B-3 HCT 35.9 % 37.0-51.0 Below low normal [facility] ( [facility] NORMAL RANGES Age WBC [...] DIFF.) APPENDIX B-3 HGB 12.2 g/dL 12.0-18.0 [facility] ([facility] NORMAL RANGES Age WBC RBC HGB [...] DIFF.) APPENDIX B-3 MCH 29.6 pg 26.0-32.0 [facility] ([facility] NORMAL RANGES Age WBC RBC HGB [...] HCT IS 5% LESS SOURCE FOR DATA: [employer] 1800 OPERATION MANUAL( AUTOMATED BLOOD COUNTS AND DIFF.) APPENDIX B-3 MCV 87.1 fL 80.0-97.0 [facility] ([facility] NORMAL [...] HCT IS 5% LESS SOURCE FOR DATA: [employer] 1800 OPERATION MANUAL( AUTOMATED BLOOD COUNTS AND DIFF.) APPENDIX B-3 PLT 240 10E3/uL 140-440 [facility] ([facility] NORMAL RANGES Age WBC [...] HCT IS 5% LESS SOURCE FOR DATA: [employer] 1800 OPERATION MANUAL( AUTOMATED BLOOD COUNTS AND DIFF.) APPENDIX B-3 MCHC 34.0 g/dL 31.0-36.0 [facility] NORMAL RANGES Age WBC [...] HCT IS 5% LESS SOURCE FOR DATA: [employer] 1800 OPERATION MANUAL( AUTOMATED BLOOD COUNTS AND DIFF.) APPENDIX B-3 RDW-CV 14.3 % 11.5-14.5 [facility] ([facility] NORMAL RANGES Age WBC RBC HGB [...] DIFF.) APPENDIX B-3 Neut% 77.2 % 37.0-92.0 [facility] ([facility] NORMAL RANGES Age WBC RBC HGB [...] DIFF.) APPENDIX B-3 Lym% 17.1 % 10.0-58.5 [facility] ([facility] NORMAL RANGES Age WBC RBC HGB [...] HCT IS 5% LESS SOURCE FOR DATA: [employer] 1800 OPERATION MANUAL( AUTOMATED BLOOD COUNTS AND DIFF.) APPENDIX B-3 Neut# 5.0 % 2.0-7.8 [facility] ([facility] NORMAL RANGES Age WBC [...] HCT IS 5% LESS SOURCE FOR DATA: [employer] 1800 OPERATION MANUAL( AUTOMATED BLOOD COUNTS AND DIFF.) APPENDIX B-3 MXD% 5.7 % 0.1-24.0 [facility] ([facility] NORMAL RANGES Age WBC [...] HCT IS 5% LESS SOURCE FOR DATA: [employer] 1800 OPERATION MANUAL( AUTOMATED BLOOD COUNTS AND DIFF.) APPENDIX B-3 Lym# 1.1 10E3/uL 0.6-4.1 [facility] ([facility] NORMAL RANGES Age WBC [...] HCT IS 5% LESS SOURCE FOR DATA: [employer] 1800 OPERATION MANUAL( AUTOMATED BLOOD COUNTS AND DIFF.) APPENDIX B-3 MXD# 0.4 10E3/uL 0.0-1.8 [facility] ([facility] NORMAL RANGES Age WBC [...] DIFF.) APPENDIX B-3 MPV 9.9 fL 9.0-13.0 [facility] ([facility] NORMAL RANGES Age WBC RBC HGB [...] DIFF.) APPENDIX B-3 ID Date Data Source [id number] 12/29/2019 11:35:00 AM EDT [facility] ([facility] Name Value Range Interpretation Code Description Data Malathi rce(s) Supporting Document(s) Hemoglobin A1c/Hemoglobin.total in Blood 6.8 % 4.40-6.10 Above high normal [facility] ([facility] NORMAL RANGES Age WBC [...] DIFF.) APPENDIX B-3 ID Date Data Source [id number] 10/19/2019 03:30:[address] [facility] [address] [facility] Emergency Department [address] [place] [address] Phone #: ext- [phone] 10/19/2019 03:29 [id number] Sex: [facility] : 1950 Age: 69yWEIGHT:120.2 kg [...] Reason for Study: Chest Pain [address] [facility] Emergency Department [address] [place] [address] Phone #: ext- [phone] 10/19/2019 03:29 [id number] Sex: F : 1950 Age: 69yCT CTA CHEST STAT 07:31 10/19/2019 07:35 Wendi Duncan(NONCOR) Tre Barnes R.N.INC PP (Oxygen? M.D.;(Yes)) (IV?(Yes)) Reason for Study: Chest pain, palpitationsMEDICATION/IV/DRIP/FLUID ORDERSOrder Description Priority Entered Acknowledged InitialedMorphine IVP 2 mg 03:57 10/19/2019 04:07 Ash Thonrton(NOW, HIGH ALERT Otoniel Reyes R.N.MEDICATIO N) Physician;Zofran 4 mg IVP X 1 04:00 10/19/2019 04:06 Herb Thorntonse: 4 mg (NOW Otoniel Reyes R.NJenniex1) Physician;Morphine IVP 2 mg 06:25 10/19/2019 06:32 Jose(NOW, HIGH ALERT Otoniel Tavarez R.N.MEDICATION) Physician;GENERAL ORDERSOrder Description Priority Entered Acknowledged InitialedEKG 03:57 10/19/2019 03:58 Ash Thornton R.N. Physician;Paper Twister Tender 03:57 10/19/2019 03:58 Ash Thornton(continuous) Otoniel Reyes [...] rce(s) Supporting Document(s) ID Date Data Source [id number] 10/19/2019 03:30:[address] [facility] [address] [facility] Emergency Department [address] [place] [address] Phone #: ext- [phone] 10/19/2019 03:29 Patient: [...] HFA Inhalation, prn [address] [facility] Emergency Department [address] [place] [address] Phone #: ext- [phone] 10/19/2019 03:29 Patient: [...] rce(s) Supporting Document(s) ID Date Data Source [id number] 10/19/2019 03:30:[address] [facility] [address] [facility] Emergency Department [address] [place] [address] Phone #: [phone]- [phone] 10/19/2019 03:29 Patient: CONCEPCIÓN CAO Sex: F : 1950 Age: 69yWeight: 120.2 kgHeight/Length: 64 inBMI: 45.5ALLERGIES: No Known Drug Allergy Date/Time Medication Administered Medication OrderedGiven MORPHINE [IVP] Morphine IVP 2 mg (NOW, HIGH04:10/19/2019 Dose: 2 mg IVP ALERT MEDICATION)Ash Thornton R.N. Site: #1 left ACGiven ONDANSETRON [IVP] Zofran 4 mg IVP X 1 dose: 4 mg04:06 10/19/2019 Dose: 4 mg IVP (NOW x1)Ash Thornton R.N. Site: #1 left ACGiven MORPHINE [IVP] Morphine IVP 2 mg (NOW, HIGH06:31 10/19/2019 Dose: 2 mg IVP ALERT MEDICATION)Corby Garcia R.N. Site: #1 left AC Name Value Range Interpretation Code Description Data Malathi rce(s) Supporting Document(s) ID Date Data Source [id number] 10/19/2019 03:30:[address] [facility] [address] [facility] Emergency Department [address] [place] [address] Phone #: ext- [phone] 10/19/2019 03:29 Patient: CONCEPCIÓN CAO Sex: F : 1950 Age: 69yPrecordial chest pain characterized as "discomfort", "pressure" and "tightn ess"(R/O ACS).(Electronically signed by Otoniel Reyes, Physician 10/23/2019 08:57) Name Value Range Interpretation Code Description Data Malathi rce(s) Supporting Document(s) ID Date Data Source [id number] 10/19/2019 03:30:[address] [facility] 1 Clinical Report - Nurses [facility] Emergency Department [address] [place] [address] Phone #: ext- [phone] 10/19/2019 03:29 Patient: CONCEPCIÓN CAO Sex: F [...] Duncan R.N. 2 Clinical Report - Nurses [facility] Emergency Department [address] [place] [address] Phone #: ext- [phone] 10/19/2019 03:29 Patient: CONCEPCIÓN CAO [facility]#: [id number] Sex: F : 1950 Age: 69yThe following entry was struck and corrected by Wendi Duncan R.N., 08:36 (10/19/19) Reason for correction - other(correction).Bisoprolol Fumarate Oral, daily. --03:48 10/19/19 Ash Thornton R.N.The following entry was struck and corrected by Wendi Duncan R.N., 08:36 (10/19/19) Reason for correction -other(correction).Amitriptyline HCl Oral, at bedtime. --03:47 10/19/19 Ash Thornton R.N.The following entry [...] killing others?". 3 Clinical Report - Nurses [facility] Emerge ncy Department [address] [place] [address] Phone #: ext- [phone] 10/19/2019 03:29 Patient: [...] PROGRESS NOTES 4 Clinical Report - Nurses [facility] Emergency Department [address] [place] [address] Phone #: ext- [phone] 10/19/2019 03:29 Patient: [...] better. (pt reports pain has improved from 9/10 to 8/10 since having beenmedicated.). --04:43 10/19/19 Corby Garcia R.N. 5 Clinical Report - Nurses [facility] Emergency Department [address] [place] [address] Phone #: ext- [phone] 10/19/2019 03:29 Patient: [...] physician. --06:32 6 Clinical Report - Nurses [facility] Emergency Department [address] [place] [address] Phone #: ext- [phone] 10/19/2019 03:29 Patient: [...] 10/19/19 Wendi Duncan R.N. Patient transported to NE by wheelchair with tech. --08:06 10/19/19 Wendi [...] was transferred. (ken). Bed obtained and ready. --09:07 10/19/19 Wendi Duncan R.N. 09:00 10/19/19. BP: 110/52. MAP: 71. HR: 77. RR: 16. O2 saturation: 94%. Temp: 97.4 F (oral). Pain level now: 0/10. --09:07 10/19/19 Wendi Duncan R.N. 7 Clinical Report - Nurses [facility] Emergency Department [address] [place] [address] Phone #: ext- [phone] 10/19/2019 03:29 Patient: CONCEPCIÓN CAO Sex: F : 1950 Age: 69yLocked/Released at 10/19/2019 09:11 by Wendi Duncan R.N. Name Value Range Interpretation Code Description Data Malathi rce(s) Supporting Document(s) ID Date Data Source [id number] 10/19/2019 03:30:[address] [facility] 1 Clinical Report - Physicians/Mid Levels [facility] Emergency Department [address] [place] [address] Phone #: ext- [phone] 10/19/2019 03:29 Patient: CONCEPCIÓN CAO Sex: F [...] daily. 2 Clinical Report - Physicians/Mid Levels [facility] Emergency Department [address] [place] [address] Phone #: ext- [phone] 10/19/2019 03:29 Patient: [...] making process. EKG: ([place]: 10/19/2019 06:22) ( [facility] [place] 10/19/2019 06:48[place] In Progress Troponin-T: ([place]: 10/19/2019 06:14) ( [facility] [place]19[facility] 06:56) Final results Test Result Flag Units (Reference) 3 Clinical Report - Physicians/Mid Levels [facility] Emergency Department [address] [place] [address] Phone #: ext- [phone] 10/19/2019 03:29 [id number] Sex: F : 1950 Age: 69y TROPONIN T 0.01 NG/ML (0.00 - 0.10) TROPONIN T0.1 ng/ml Recommended as the clinical threshold value forTroponin T.Urinalysis: (LAWRENCE: 10/19/2019 05:10) ( [facility] [place] Final results Test Result Flag [...] MICROSCOPIC Not IndicateBNP: (LAWRENCE: 10/19/2019 03:45) ( [facility] [place] 04:28[facility] Final results Test Result Flag Units (Reference) BNP 291 H PG/ML (0 - 125)CBC w Diff: (LAWRENCE: 10/19/2019 03:45) ( [facility] 10/19/2019 04:10) Final results Test Result Flag [...] INDICATED 4 Clinical Report - Physicians/Mid Levels [facility] Emergency Department [address] [place] [address] Phone #: [phone]- [phone] 10/19/2019 03:29 Patient: [...] Male GFR Interprentation 20-49 yrs >60 mL/min Wpelpn29-71 yrs >56 mL/min Normal 60-69 yrs >49 mL/min Normal 70-79yrs>42 mL/min Normal 80 and above > 35 mL/min Normal Female GFRInterpretation 20-39 yrs >60 mL/min Normal 40-49 yrs >58 mL/minNormal 50-59 yrs >51 mL/min Normal 60-69 yrs >45 mL/min Nsnqrt10-85 yrs >39 mL/min Normal 80 and above >32 mL/min NormalD-Dimer: (LAWRENCE: 10/19/2019 03:45) ( [facility] [place] [facility]16[facility] Final results Test Result Flag Units (Reference) D-DIMER QUANT 0.45 ug/mL (0.27 - 0.50)Lipase: (LAWRENCE: 10/19/2019 03:45) ( [facility] [place] 04[facility]28[facility] Final results Test Result Flag Units (Reference) LIPASE 20 U/L (13 - 60)Troponin-T: (LAWRENCE: 10/19/2019 03:45) ( [facility] [place] 04[facility]22) Final results Test Result Flag Units (Reference) TROPONIN T 0.01 NG/ML (0.00 - 0.10) TROPONIN T0.1 ng/ml Recommended as the clinical threshold value forTroponin T.Chest Portable 1 View: (LAWRENCE: 10/19/2019 03:57) ( [facility] [place] 10/19/[place] 06:05[place] In ProgressCHEST PORTABLEReason(s): Chest PainTRANSPORTATION: S IV? O2? Oxygen?(No) Room: ED: Menopause Exam CHEST PORTABLE 5 Clinical Report - Physicians/Mid Levels [facility] Emergency Department [address] [place] [address] Phone #: [phone] 10/19/2019 03:29 Patient: CONCEPCIÓN CAO Sex: F : 1950 Age: 69[place] [address] PHONE: [phone] FAX: [phone] Name .................. : KILEY BEEBE Acct Number.................. : [id number] ROOM. ................. : TR-02 MR Number ................... : [id number] Stay type ............. : E/R Discharge Date......... ... : Admit Date ......... : 10/19/19 Admit Phys .................... : ERIC JAIN Date of ....... : 1950 Family Phys ................... : RICHARD NICOLE Phone .................. : [phone] Age ................................ : 69 Film# .................. .:[id number] Sex ................................. : F Unsigned transcriptions are preliminary reports and do not represent a medical or legal document CHEST PORTABLE [id number] COMPLETE:10/19/19 04:11 DLA [id number] Reason(s): Chest Pain PORTABLE CHEST X-RAY: INDICATION: [...] better. 6 Clinical Report - Physicians/Mid Levels [facility] Emergency Department [address] [place] [address] Phone #: [phone]- [phone] 10/19/2019 03:29 Patient: [...] rce(s) Supporting Document(s) ID Date Data Source [id number] 10/19/2019 03:30:[address] [facility] CONCEPCIÓN Savage VisitID: [id number] Date: 7:09Faxed Med Rec Request to [employer] @ [phone] with the t-system overview attached.(Electronically signed by Theo Bae - 10/19/2019 7:09)10/19/2019 8:27T-Systems overview faxed to [facility] @ [phone](Electronically signed by Theo Bae - 10/19/2019 8:27) Name Value Range Interpretation Code Description Data Malathi rce(s) Supporting Document(s) ID Date Data Source [id number] 10/21/2019 01:46:00 PM EDT [facility] [address] [place] [address] PHONE: [phone] FAX: [phone] Name .................. : KILEY BEEBE Acct Number.................. : [id number] ROOM. ................. : 102-1 MR Number ................... : [id number] Stay type ............. : O/P Discharge Date......... ... : Admit Date ......... : 10/19/19 Admit Phys .................... : MARIA ANTONIA Date of ....... : 1950 Family Phys ................... : RICHARD NICOLE Phone .................. : [phone] Age ................................ : 69 Film# .................. .:[id number] Sex ................................. : F Unsigned transcriptions are preliminary reports and do not represent a medical or legal document CT CTA CHEST NON-CORONARY W C 31283 COMPLETE:10/19/19 08:27 CASEY [id number] Reason(s): Chest pain, palpitations CTA CHEST WITH [...] of administration: Intravenous Examination dictated by JOSE Mnedez. Examination was reviewed with Raul Gamez MD, radiologist at the time of this dictation. Page 1 of 2 [facility] [address] [place] [address] PHONE: [phone] FAX: [phone] Name .................. : KILEY BEEBE Acct Number.................. : [id number] ROOM. ................. : 102-1 MR Number ................... : [id number] Stay type ............. : O/P Discharge Date......... ... : Admit Date ......... : 10/19/19 Admit Phys .................... : MARIA ANTONIA Date of ....... : 1950 Family Phys ................... : RICHARD NICOLE Phone .................. : [phone] Age ................................ : 69 Film# .................. .:[id number] Sex ................................. : F Unsigned transcriptions are preliminary reports and do not represent a medical or legal document CT CTA CHEST NON- CORONARY W C 79983 COMPLETE:10/19/19 08:27 CASEY [id number] Reason(s): Chest pain, palpitations Electronically Reviewed and Signed By RAUL GAMEZ MD , 10/21/19 13:46, [facility] Transcribe Initials: SSR, Transcribe Date: 10/19/19 10:40, Dictation Date: Copy for: RICHARD MASTERS via fax Copy for: EMERGENCY DEPT via modem Copy for: 710 MED REC DISCHARGED Page 2 of 2 Name Value Range Interpretation Code Description Data Malathi rce(s) Supporting Document(s) ID Date Data Source [id number] 10/21/2019 06:08:00 AM EDT [facility] ([facility] Name Value Range Interpretation Code Description Data Malathi rce(s) Supporting Document(s) Sodium 140 meq/L 134-153 [facility] Comprehensive Metabo Laboratory test result [facility] ([facility] COMPREHENSIVE METABOLIC PANEL Potassium 4.7 meq/L 3.6-5.0 [facility] ([facility] Co2 26 meq/L 22-30 [facility] Chloride 104 meq/L 98-107 [facility] Glucose 165 mg/dL 65-110 Above high normal [facility] ([facility] BUN 22 mg/dL 7-21 Above high normal [facility] Creatinine 1.0 mg/dL 0.7-1.5 [facility] ([facility] BUN/Creat 22 8-27 [facility] Albumin 3.5 g/dL 3.9-5.0 Below low normal [facility] ( [facility] Total Protein 5.7 g/dL 6.3-8.2 Below low normal MEDEN T ([facility] Calcium 8.7 mg/dL 8.4-10.2 [facility] ([facility] A/G Ratio 1.6 0.8-2.0 [facility] ([facility] Globulin 2.2 GM/DL 2.4-3.2 Below low normal [facility] ( [facility] Total Bili Laboratory test result 0.2-1.3 ME DENT ([facility] Sgot/Ast 12 U/L 5-40 [facility] ([facility] Alkaline Phos 59 U/L 38-126 [facility] Anion Gap 10.0 mmol/L 8.0-16.0 [facility] ([facility] SGPT/Alt 8 U/L 7-56 [facility] Age 69 yrs [facility] ([facility] Afr Amer GFR Laboratory test result [facility] ([facility] Male GFR Interprentation 20-49 yrs [...] mL/min Normal Non-Aa GFR 58 mL/min [facility] ID Date Data Source [id number] 10/21/2019 06:08:00 AM EDT [facility] ([facility] Name Value Range Interpretation Code Description Data Malathi rce(s) Supporting Document(s) Magnesium [Mass/volume] in Serum or Plasma 1.7 mg/dL 1.7-2.2 [facility] ([facility] ID Date Data Source [id number] 10/21/2019 06:08:00 AM EDT [facility] ([facility] Name Value Range Interpretation Code Description Data Malathi rce(s) Supporting Document(s) WBC 8.1 10^3/uL 4.2-11.0 [facility] ([facility] CBC W/Automated Diff Laboratory test result [facility] ([facility] COMPLETE BLOOD COUNT Hemoglobin 11.2 g/dL 12.0-16.0 Below low normal [facility] ( [facility] RBC 3.90 10^6/uL 4.20-5.40 Below low normal [facility] ([facility] MCV 88.2 fL 81.0-101 [facility] Hematocrit 34.4 % 37.0-47.0 Below low normal [facility] ( [facility] MCHC 32.6 g/dL 31.0-36.0 [facility] ([facility] RDW 13.6 % 11.5-14.5 [facility] MCH 28.7 pg 27.0-34.0 [facility] Platelets 196 10^3/uL 150-450 [facility] MPV 10.2 fL 7.4-10.4 [facility] Neut 71.9 % 37.0-80.0 [facility] ([facility] Lymph 19.2 % 25.0-40.0 Below low normal [facility] ( [facility] Eos 1.0 % 0.0-7.0 [facility] Elmore 7.0 % 3.0-8.0 [facility] ([facility] %Ig 0.4 % 0.0-0.0 Above high normal [facility] ([facility] Baso 0.5 % 0.0-2.5 [facility] %NRBC 0.0 % 0.0-0.0 [facility] ([facility] #Neut 5.85 10^3/uL 2.00-6.90 [facility] ([facility] #Lymph 1.56 10^3/uL 0.60-3.40 [facility] #Elmore 0.57 10^3/uL 0.00-0.90 [facility] #Baso 0.04 10^3/uL 0.00-0.20 [facility] #Eos 0.08 10^3/uL 0.00-0.70 [facility] ([facility] #NRBC 0.00 10^3/uL 0.00-0.00 [facility] ([facility] #Ig 0.03 10^3/uL 0.00-0.10 [facility] ([facility] Manual Diff Laboratory test result M SHAUNA ([facility] RBC Morph Laboratory test result ME LACKEY [facility] ID Date Data Source [id number] 10/21/2019 07:03:[address] [facility] Name Value Range Interpretation Code Description Data Malathi rce(s) Supporting Document(s) COMPREHENSIVE METABOLIC PANEL [facility] COMPREHENSIVE METABOLIC PANEL Sodium [Moles/volume] in Serum or Plasma 140 mEq/L 134 - 153 [facility] Potassium [Moles/volume] in Serum or Plasma 4.7 mEq/L 3.6 - 5.0 [facility] Chloride [Moles/volume] in Serum or Plasma 104 mEq/L 98 - 107 [facility] Carbon dioxide, total [Moles/volume] in Serum or Plasma 26 MEQ/L 22 - 30 [facility] Glucose [Mass/volume] in Serum or Plasma 165 MG/DL 65 - [address] [facility] BUN 22 MG/DL 7 - 21 [facility] Creatinine [Mass/volume] in Serum or Plasma 1.0 MG/DL 0.7 - 1.5 [facility] BUN/CREAT 22 8 - 27 [facility] al Protein [Mass/volume] in Serum or Plasma 5.7 G/DL 6.3 - 8.[address] [facility] Albumin [Mass/volume] in Serum or Plasma 3.5 G/DL 3.9 - 5.[address] [facility] Globulin [Mass/volume] in Serum by calculation 2.2 GM/DL 2.4 - 3.[address] [facility] A/G RATIO 1.6 0.8 - 2.0 [facility] Calcium [Mass/volume] in Serum or Plasma 8.7 MG/DL 8.4 - 10.2 [facility] Bilirubin.total [Mass/volume] in Serum or Plasma <0.7 MG/DL 0.2 - 1.3 [facility] Alkaline phosphatase [Enzymatic activity/volume] in Serum or Plasma 59 U/L 38 - 126 [facility] Aspartate aminotransferase [Enzymatic activity/volume] in Serum or Plasma 12 U/L 5 - 40 [facility] Alanine aminotransferase [Enzymatic activity/volume] in Seru m or Plasma 8 U/L 7 - 56 [facility] Anion gap 3 in Serum or Plasma 10.0 mmol/L 8.0 - 16.0 [facility] AGE [address] [facility] al NON-AA GFR 58 mL/min [facility] A[facility] AMER GFR >60 [facility] Male GFR In terprentation [...] >32 mL/min Normal ID Date Data Source [id number] 10/21/2019 06:57:[address] [facility] Name Value Range Interpretation Code Description Data Malathi rce(s) Supporting Document(s) Magnesium [Mass/volume] in Serum or Plasma 1.7 MG/DL 1.7 - 2.2 [facility] ID Date Data Source [id number] 10/21/2019 06:36:[address] [facility] Name Value Range Interpretation Code Description Data Malathi rce(s) Supporting Document(s) CBC W/AUTOMATED DIFF [facility] COMPLETE BLOOD COUNT Leukocytes [#/volume] in Blood by Automated count 8.1 10^3/uL 4.2 - [address] [facility] Erythrocytes [#/volume] in Blood by Automated count 3.90 10^6/uL 4. 20 - 5.[address] [facility] Hemoglobin [Mass/volume] in Blood 11.2 g/dL 12.0 - 16.[address] [facility] Hematocrit [Volume Fraction] of Blood by Automated count 34.4 % 3 7.0 - 47.[address] [facility] Erythrocyte mean corpuscular volume [Entitic volume] by Auto mated count 88.2 fL 81.0 - 101 [facility] Erythrocyte mean corpuscular hemoglobin [Entitic mass] by Automated count 28.7 pg 27.0 - 34.0 [facility] Erythrocyte mean corpuscular hemoglobin concentration [Mass/volume] by Automated count 32.6 g/dL 31.0 - 36.0 [facility] Erythrocyte distribution width [Ratio] by Automated count 13.6 % 11.5 - 14.5 [facility] Platelets [#/volume] in Blood by Automated count 196 10^3/uL 150 - [address] [facility] Platelet mean volume [Entitic volume] in Blood by Automated count 10.2 fL 7.4 - 10.4 [facility] Neutrophils/100 leukocytes in Blood by Automated count 71.9 % 37. 0 - 80.0 [facility] Lymphocytes/100 leukocytes in Blood by Manual count 19.2 % 25.0 - 40.[address] [facility] Monocytes/100 leukocytes in Blood by Automated count 7.0 % 3.0 - 8.0 [facility] Eosinophils/100 leukocytes in Blood by Automated count 1.0 % 0.0 - 7.0 [facility] Basophils/100 leukocytes in Blood by Automated count 0.5 % 0.0 - 2.5 [facility] %IG 0.4 % 0.0 - 0.[address] [facility] %NRBC 0.0 % 0.0 - 0.0 [facility] Neutrophils [#/volume] in Blood by Automated count 5.85 10^3/uL 2.00 - 6.90 [facility] Lymphocytes [#/volume] in Blood by Automated count 1.56 10^3/uL 0.60 - 3.40 [facility] Monocytes [#/volume] in Blood by Automated count 0.57 10^3/uL 0.00 - 0.90 [facility] Eosinophils [#/volume] in Blood by Automated count 0.08 10^3/uL 0.00 - 0.70 [facility] Basophils [#/volume] in Blood by Automated count 0.04 10^3/uL 0.00 - 0.20 [facility] #IG 0.03 10^3/uL 0.00 - 0.10 [facility] ospital #NRBC 0.00 10^3/uL 0.00 - 0.00 [facility] ospital MANUAL DIFF NOT INDICATED [facility] RBC MORPH NOT INDICATED [facility] sp[facility] ID Date Data Source [id number] 10/20/2019 05:56:00 AM EDT [facility] ([facility] Name Value Range Interpretation Code Description Data Malathi rce(s) Supporting Document(s) WBC 11.2 10^3/uL 4.2-11.0 Above high normal MEDEN T ([facility] CBC W/Automated Diff Laboratory test result [facility] ([facility] COMPLETE BLOOD COUNT RBC 4.29 10^6/uL 4.20-5.40 [facility] ([facility] Hemoglobin 12.2 g/dL 12.0-16.0 [facility] ([facility] Hematocrit 37.5 % 37.0-47.0 [facility] ([facility] MCHC 32.5 g/dL [...] high normal [facility] ([facility] Elmore 4.2 % 3.0-8.0 [facility] Lymph 7.3 % 25.0-40.0 Below low normal [facility] ( [facility] %Ig 0.8 % 0.0-0.0 Above high normal [facility] Eos 0.0 % 0.0-7.0 [facility] ([facility] Baso 0.1 % 0.0-2.5 [facility] #Neut 9.78 10^3/uL 2.00-6.90 Above high normal [facility] T ([facility] #Lymph 0.82 10^3/uL 0.60-3.40 [facility] %NRBC 0.0 % 0.0-0.0 [facility] #Elmore 0.47 10^3/uL 0.00-0.90 [facility] #Baso 0.01 10^3/uL 0.00-0.20 [facility] #Eos 0.00 10^3/uL 0.00-0.70 [facility] #NRBC 0.00 10^3/uL 0.00-0.00 [facility] ([facility] Manual Diff Laboratory test result M EDENT ([facility] #Ig 0.09 10^3/uL 0.00-0.10 [facility] ([facility] RBC Morph Laboratory test result [facility] ID Date Data Source [id number] 10/20/2019 05:56:00 AM EDT [facility] ([facility] Name Value Range Interpretation Code Description Data Malathi rce(s) Supporting Document(s) Magnesium [Mass/volume] in Serum or Plasma 1.8 mg/dL 1.7-2.2 [facility] ([facility] ID Date Data Source [id number] 10/20/2019 05:56:00 AM EDT [facility] ([facility] Name Value Range Interpretation Code Description Data Malathi rce(s) Supporting Document(s) Sodium 139 meq/L 134-153 [facility] ([facility] Comprehensive Metabo Laboratory test result [facility] ([facility] COMPREHENSIVE METABOLIC PANEL Co2 27 meq/L 22-30 [facility] ([facility] Potassium 4.9 meq/L 3.6-5.0 [facility] ([facility] Chloride 100 meq/L 98-107 [facility] ([facility] BUN 19 mg/dL 7-21 [facility] ([facility] Creatinine 0.9 mg/dL 0.7-1.5 [facility] ([facility] Glucose 244 mg/dL 65-110 Above high normal [facility] ([facility] Albumin 3.8 g/dL 3.9-5.0 Below low normal [facility] ( [facility] Total Protein 6.3 g/dL 6.3-8.2 [facility] ([facility] BUN/Creat 21 8-27 [facility] ([facility] Globulin 2.5 GM/DL 2.4-3.2 [facility] ([facility] Calcium 9.5 mg/dL 8.4-10.2 [facility] A/G Ratio 1.5 0.8-2.0 [facility] ([facility] Alkaline Phos 69 U/L 38-126 [facility] ([facility] Total Bili Laboratory test result 0.2-1.3 ME DENT ([facility] Sgot/Ast 15 U/L 5-40 [facility] ([facility] Anion Gap 12.0 mmol/L 8.0-16.0 [facility] ([facility] SGPT/Alt 9 U/L 7-56 [facility] ([facility] Age 69 yrs [facility] ([facility] Non-Aa GFR Laboratory test result ME DENT ([facility] Afr Amer GFR Laboratory test result [facility] ([facility] Male GFR Interprentation 20-49 yrs [...] >32 mL/min Normal ID Date Data Source [id number] 10/20/2019 06:53:[address] [facility] Name Value Range Interpretation Code Description Data Malathi rce(s) Supporting Document(s) COMPREHENSIVE METABOLIC PANEL [facility] COMPREHENSIVE METABOLIC PANEL Sodium [Moles/volume] in Serum or Plasma 139 mEq/L 134 - 153 [facility] Potassium [Moles/volume] in Serum or Plasma 4.9 mEq/L 3.6 - 5.0 [facility] Chloride [Moles/volume] in Serum or Plasma 100 mEq/L 98 - 107 [facility] Carbon dioxide, total [Moles/volume] in Serum or Plasma 27 MEQ/L 22 - 30 [facility] Glucose [Mass/volume] in Serum or Plasma 244 MG/DL 65 - [address] [facility] BUN 19 MG/DL 7 - 21 [facility] Creatinine [Mass/volume] in Serum or Plasma 0.9 MG/DL 0.7 - 1.5 [facility] BUN/CREAT 21 8 - 27 [facility] al Protein [Mass/volume] in Serum or Plasma 6.3 G/DL 6.3 - 8.2 [facility] Albumin [Mass/volume] in Serum or Plasma 3.8 G/DL 3.9 - 5.[address] [facility] Globulin [Mass/volume] in Serum by calculation 2.5 GM/DL 2.4 - 3.2 [facility] A/G RATIO 1.5 0.8 - 2.0 [facility] Calcium [Mass/volume] in Serum or Plasma 9.5 MG/DL 8.4 - 10.2 [facility] Bilirubin.total [Mass/volume] in Serum or Plasma <0.7 MG/DL 0.2 - 1.3 [facility] Alkaline phosphatase [Enzymatic activity/volume] in Serum or Plasma 69 U/L 38 - 126 [facility] Aspartate aminotransferase [Enzymatic activity/volume] in Serum or Plasma 15 U/L 5 - 40 [facility] Alanine aminotransferase [Enzymatic activity/volume] in Seru m or Plasma 9 U/L 7 - 56 [facility] Anion gap 3 in Serum or Plasma 12.0 mmol/L 8.0 - 16.0 [facility] AGE [address] [facility] al NON-AA GFR >60 mL/min [facility] ital AFR AMER GFR >60 [facility] Male GFR In terprentation [...] >32 mL/min Normal ID Date Data Source [id number] 10/20/2019 06:50:[address] [facility] Name Value Range Interpretation Code Description Data Malathi rce(s) Supporting Document(s) Magnesium [Mass/volume] in Serum or Plasma 1.8 MG/DL 1.7 - 2.2 [facility] ID Date Data Source [id number] 10/20/2019 06:43:[address] [facility] Name Value Range Interpretation Code Description Data Malathi rce(s) Supporting Document(s) CBC W/AUTOMATED DIFF [facility] COMPLETE BLOOD COUNT Leukocytes [#/volume] in Blood by Automated count 11.2 10^3/uL 4.2 - 11.[address] [facility] Erythrocytes [#/volume] in Blood by Automated count 4.29 10^6/uL 4. 20 - 5.40 [facility] Hemoglobin [Mass/volume] in Blood 12.2 g/dL 12.0 - 16.0 [facility] Hematocrit [Volume Fraction] of Blood by Automated count 37.5 % 3 7.0 - 47.0 [facility] Erythrocyte mean corpuscular volume [Entitic volume] by Auto mated count 87.4 fL 81.0 - 101 [facility] Erythrocyte mean corpuscular hemoglobin [Entitic mass] by Automated count 28.4 pg 27.0 - 34.0 [facility] Erythrocyte mean corpuscular hemoglobin concentration [Mass/volume] by Automated count 32.5 g/dL 31.0 - 36.0 [facility] Erythrocyte distribution width [Ratio] by Automated count 13.2 % 11.5 - 14.5 [facility] Platelets [#/volume] in Blood by Automated count 259 10^3/uL 150 - [address] [facility] Platelet mean volume [Entitic volume] in Blood by Automated count 10.2 fL 7.4 - 10.4 [facility] Neutrophils/100 leukocytes in Blood by Automated count 87.6 % 37. 0 - 80.[address] [facility] Lymphocytes/100 leukocytes in Blood by Manual count 7.3 % 25.0 - 40.[address] [facility] Monocytes/100 leukocytes in Blood by Automated count 4.2 % 3.0 - 8.0 [facility] Eosinophils/100 leukocytes in Blood by Automated count 0.0 % 0.0 - 7.0 [facility] Basophils/100 leukocytes in Blood by Automated count 0.1 % 0.0 - 2.5 [facility] %IG 0.8 % 0.0 - 0.[address] [facility] %NRBC 0.0 % 0.0 - 0.0 [facility] al Neutrophils [#/volume] in Blood by Automated count 9.78 10^3/uL 2.00 - 6.[address] [facility] Lymphocytes [#/volume] in Blood by Automated count 0.82 10^3/uL 0.60 - 3.40 [facility] Monocytes [#/volume] in Blood by Automated count 0.47 10^3/uL 0.00 - 0.90 [facility] Eosinophils [#/volume] in Blood by Automated count 0.00 10^3/uL 0.00 - 0.70 [facility] Basophils [#/volume] in Blood by Automated count 0.01 10^3/uL 0.00 - 0.20 [facility] #IG 0.09 10^3/uL 0.00 - 0.10 [facility] H ospital #NRBC 0.00 10^3/uL 0.00 - 0.00 [facility] ospital MANUAL DIFF NOT INDICATED [facility] RBC MORPH NOT INDICATED [facility] spital ID Date Data Source [id number] 10/19/2019 12:16:00 PM EDT [facility] ([facility] Name Value Range Interpretation Code Description Data Malathi rce(s) Supporting Document(s) Troponin T.cardiac [Mass/volume] in Serum or Plasma 0.01 ng/mL 0.00-0 .10 [facility] ([facility] TROPONIN T 0.1 ng/ml Recommended as the clinical th reshold value for Troponin T. ID Date Data Source [id number] 10/19/2019 12:50:00 PM EDT [facility] Name Value Range Interpretation Code Description Data Malathi rce(s) Supporting Document(s) TROPONIN T 0.01 NG/ML 0.00 - 0.10 [facility] spital TROPONIN T0.1 ng/ml Recommended as the c linical threshold value Stevenropojuancarlos T. ID Date Data Source [id number] 10/19/2019 08:59:00 AM EDT [facility] [address] [place] [address] PHONE: [phone] FAX: [phone] Name .................. : KILEY BEEBE Acct Number.................. : [id number] ROOM. ................. : TR-02 Number ................... : [id number] Stay type ............. : E/R Discharge Date......... ... : Admit Date ......... : 10/19/19 Admit Phys .................... : ERIC JAIN Date of ....... : 1950 Family Phys ................... : RICHARD NICOLE Phone ..... ............. : [phone] Age ................................ : 69 Film# .................. .:[id number] Sex ................................. : F Unsigned t ranscriptions are preliminary reports and do not represent a medical or legal document CHEST PORTABLE [id number] COMPLETE:10/19/19 04:11 DLA [id number] Reason(s): Chest Pain PORTABLE CHEST X-RAY: INDICATION: Chest pain. COMPARISON: 04/20/10 FINDINGS: The cardiac and mediastinal silhouettes appear normal and the lungs are clear. The bones and soft tissues are normal. The upper abdomen is unremarkable. IMPRESSION: No acute disease identifiable. Electronically Reviewed and Signed By Raymon Ramires MD , 10/19/19 08:59, KLOE Transcribe Initials: DZ , Transcribe Date: 10/19/19 06:04, Dictation Date: Copy for: RICHARD MASTERS via fax Copy for: EMERGENCY DEPT via modem Copy for: [address] [place] [address] REC Page 1 of 1 Name Value Range Interpretation Code Description Data Malathi rce(s) Supporting Document(s) ID Date Data Source [id number] 10/19/2019 08:41:00 [place] [address] RESPIRATORY CARE REPORT ==== ---------NAME------- NUMBER SEX AGE ADMIT DISC. XRAY# F/C IRVING CONCEPCIÓN [id number] F [id number] 10/19/19 [id number] O/P DATE OF : 1950 M/R# [id number] #: [id number] LOCATION: EMERGENCY DEPT EKG 51212 COMP LETE:10/19/19 06:46 ED 92224 PHYSICIAN: MARIA ANTONIA JAIN Name Value Range Interpretation Code Description Data Malathi rce(s) Supporting Document(s) ID Date Data Source [id number] 10/19/2019 08:39:00 AM EDT [facility] [address] RESPIRATORY CARE REPORT ==== ---------NAME------- NUMBER SEX AGE ADMIT DISC. XRAY# F/C IRVING BEEBE [id number] F 69 10/19/19 [id number] MB4 O/P DATE OF : 1950 M/R# [id number] #: [id number] LOCATION: EMERGENCY DEPT EKG 04483 COMP LETE:10/19/19 08:37 EWW [id number] PHYSICIAN: MARIA ANTONIA Name Value Range Interpretation Code Description Data Malathi rce(s) Supporting Document(s) ID Date Data Source [id number] 10/19/2019 06:14:00 AM EDT [facility] Name Value Range Interpretation Code Description Data Malathi rce(s) Supporting Document(s) Troponin T.cardiac [Mass/volume] in Serum or Plasma 0.01 ng/mL 0.00-0 .10 [facility] ([facility] TROPONIN T 0.1 ng/ml Recommended as the clinical th reshold value for Troponin T. ID Date Data Source [id number] 10/19/2019 06:56:[address] [facility] Name Value Range Interpretation Code Description Data Malathi rce(s) Supporting Document(s) TROPONIN T 0.01 NG/ML 0.00 - 0.10 [facility] spital TROPONIN T0.1 ng/ml Recommended as the c linical threshold value forTroponin T. ID Date Data Source [id number] 10/19/2019 05:10:00 AM EDT [facility] ([facility] Name Value Range Interpretation Code Description Data Malathi rce(s) Supporting Document(s) Urinalysis Laboratory test result ME [facility] ([facility] SOURCE: Clean Catch Source Laboratory test result [facility] ([facility] SOURCE: Clean Catch Spec Myrtle 1.015 1.001-1.030 [facility] ([facility] SOURCE: Clean Catch Clarity Laboratory test result [facility] ([facility] SOURCE: Clean Catch Color Laboratory test result [facility] ([facility] SOURCE: Clean Catch pH 6 5-9 [facility] ([facility] SOURCE: Clean Catch Glucose Laboratory test result [facility] ([facility] SOURCE: Clean Catch Bilirubin Laboratory test result ME [facility] ([facility] SOURCE: Clean Catch Protein Laboratory test result [facility] ([facility] SOURCE: Clean Catch Ketone Laboratory test result [facility] ([facility] SOURCE: Clean Catch Blood Laboratory test result [facility] ([facility] SOURCE: Clean Catch Nitrite Laboratory test result [facility] ([facility] SOURCE: Clean Catch Microscopic Laboratory test result M EDENT ([facility] SOURCE: Clean Catch Leuk Est Laboratory test result [facility] ([facility] SOURCE: Clean Catch Urobilinogen Laboratory test result [facility] ([facility] SOURCE: Clean Catch ID Date Data Source [id number] 10/19/2019 05:19:[address] [facility] Name Value Range Interpretation Code Description Data Malathi rce(s) Supporting Document(s) [facility] R [facility] COLOR yellow NORMAL: Yellow [facility] CLARITY clear NORMAL: Clear [facility] Specific gravity of Urine by Test strip 1.015 1.001 - 1.030 [facility] pH 6 5 - 9 [facility] Glucose [Mass/volume] in Urine by Test strip NORM NORMAL: Negat micheal [facility] Bilirubin.total [Presence] in Urine by Test strip NEG NORMAL: Negative [facility] Ketones [Presence] in Urine by Test strip NEG NORMAL: Negative [facility] Protein [Mass/volume] in Urine by Test strip NEG NORMAL: Negat micheal [facility] Nitrite [Presence] in Urine by Test strip NEG NORMAL: Negative [facility] BLOOD NEG NORMAL: Negative [facility] Leukocyte esterase [Presence] in Urine by Test strip NEG CHRIS L: Negative [facility] Urobilinogen [Mass/volume] in Urine by Test strip NOR less latonia n 1.0 mg/dL [facility] MICROSCOPIC Not Indicate [facility] o[facility] ID Date Data Source [id number] 10/19/2019 03:45:00 AM EDT [facility] ([facility] Name Value Range Interpretation Code Description Data Malathi rce(s) Supporting Document(s) Thyrotropin [Units/volume] in Serum or Plasma 2.38 uIU/mL 0.47-5.01 [facility] ([facility] ID Date Data Source [id number] 10/19/2019 03:45:00 AM EDT [facility] ([facility] [...] AVERAGE 11.04 6.14 ID Date Data Source [id number] 10/19/2019 03:45:00 AM EDT [facility] ([facility] Name Value Range Interpretation Code Description Data Malathi rce(s) Supporting Document(s) Hemoglobin A1c/Hemoglobin.total in Blood 7.0 % 4.4-6.1 Above high normal [facility] ([facility] {A1] {HB] Magnesium [Mass/volume] in Serum or Plasma 1.6 mg/dL 1.7-2.2 Belo w low normal [facility] ([facility] ID Date Data Source [id number] 10/19/2019 03:45:00 AM EDT [facility] ([facility] Name Value Range Interpretation Code Description Data Malathi rce(s) Supporting Document(s) Lipoprotein lipase [Enzymatic activity/volume] in Serum or Plasm a 20 U/L 13-60 [facility] ([facility] ) ID Date Data Source [id number] 10/19/2019 03:45:00 AM EDT [facility] ([facility] Name Value Range Interpretation Code Description Data Malathi rce(s) Supporting Document(s) Sodium 138 meq/L 134-153 [facility] ([facility] Comprehensive Metabo Laboratory test result [facility] ([facility] COMPREHENSIVE METABOLIC PANEL Potassium 4.0 meq/L 3.6-5.0 [facility] ([facility] Chloride 98 meq/L 98-107 [facility] ([facility] Co2 27 meq/L 22-30 [facility] ([facility] Glucose 225 mg/dL 65-110 Above high normal [facility] ([facility] BUN 14 mg/dL 7-21 [facility] ([facility] Creatinine 1.0 mg/dL 0.7-1.5 [facility] ([facility] Total Protein 7.5 g/dL 6.3-8.2 [facility] ([facility] BUN/Creat 14 8-27 [facility] ([facility] Globulin 2.8 GM/DL 2.4-3.2 [facility] ([facility] Albumin 4.7 g/dL 3.9-5.0 [facility] ([facility] Total Bili Laboratory test result 0.2-1.3 [facility] ([facility] A/G Ratio 1.7 0.8-2.0 [facility] ([facility] Calcium 9.7 mg/dL 8.4-10.2 [facility] ([facility] Alkaline Phos 87 U/L 38-126 [facility] ([facility] Sgot/Ast 17 U/L 5-40 [facility] ([facility] SGPT/Alt 9 U/L 7-56 [facility] ([facility] Age 69 yrs [facility] Non-Aa GFR 58 mL/min [facility] ([facility] Anion Gap 13.0 mmol/L 8.0-16.0 [facility] ([facility] Afr Amer GFR Laboratory test result [facility] ([facility] Male GFR Interprentation 20-49 yrs [...] >32 mL/min Normal ID Date Data Source [id number] 10/19/2019 03:45:00 AM EDT [facility] ([facility] Name Value Range [...] for Troponin T. ID Date Data Source [id number] 10/19/2019 03:45:00 AM EDT [facility] ([facility] [...] 31.0-36.0 [facility] ([facility] Elmore 5.5 % 3.0-8.0 [facility] ([facility] Lymph 11.3 % 25.0-40.0 Below low normal [facility] ( [facility] Neut 81.9 % 37.0-80.0 Above high normal [facility] ([facility] Baso 0.4 % 0.0-2.5 [facility] ([facility] Eos 0.7 % 0.0-7.0 [facility] ([facility] %Ig 0.2 % 0.0-0.0 Above high normal [facility] ([facility] %NRBC 0.0 % 0.0-0.0 [facility] ([facility] #Neut 6.80 10^3/uL 2.00-6.90 [facility] ([facility] #Elmore 0.46 10^3/uL 0.00-0.90 [facility] ([facility] [...] RBC Morph Laboratory test result [facility] ([facility] Manual Diff Laboratory test result M SHAU[facility] ([facility] ID Date Data Source [id number] 10/19/2019 10:01:[address] [facility] Name Value Range Interpretation Code Description Data Malathi rce(s) Supporting Document(s) Thyrotropin [Units/volume] in Serum or Plasma by Detec tion limit <= 0.05 mIU/L 2.38 uIU/mL 0.47 - 5.01 [facility] ID Date Data Source [id number] 10/19/2019 09:56:[address] [facility] Name Value Range Interpretation Code Description Data Malathi rce(s) Supporting Document(s) CVE PANEL [facility] al LIPID PANEL Cholesterol [Mass/volume] in Serum or Plasma 150 MG/DL 131 - 200 [facility] Deprecated Triglyceride [Mass/volume] in Serum or Plasma 148 MG/DL 3 5 - 160 [facility] HDL 50 MG/DL 29 - 86 [facility] Cholesterol in LDL [Mass/volume] in Serum or Plasma by Direc t assay 85 mg/dL 65 - 175 [facility] Cholesterol.total/Cholesterol in HDL [Mass Ratio] in Serum o r Plasma 3.0 3.2 - 4.[address] [facility] LDL/HDL 1.70 1.47 - 3.22 [facility] ital CVE RISK CHOL/HDL LDL/HDLMEN: 1/2 AVERAGE 3.43 1.00 AVERAGE 4.97 3.55 2X AVERAGE 9.55 6.25 3X AVERAGE 23.99 7.99WOMEN: 1/2 AVERAGE 3.27 1.47 AVERAGE 4.44 3.22 2X AVERAGE 7.05 5.03 3X AVERAGE 11.04 6.14 ID Date Data Source [id number] 10/19/2019 09:56:[address] [facility] Name Value Range Interpretation Code Description Data Malathi rce(s) Supporting Document(s) Magnesium [Mass/volume] in Serum or Plasma 1.6 MG/DL 1.7 - 2.[address] [facility] ID Date Data Source [id number] 10/19/2019 09:54:[address] [facility] Name Value Range Interpretation Code Description Data Malathi rce(s) Supporting Document(s) Hemoglobin A1c/Hemoglobin.total in Blood 7.0 % 4.4 - 6.[address] [facility] {A1]{HB] ID Date Data Source [id number] 10/19/2019 04:28:[address] [facility] Name Value Range Interpretation Code Description Data Malathi rce(s) Supporting Document(s) Lipase [Enzymatic activity/volume] in Serum or Plasma 20 U/L 13 - 60 [facility] ID Date Data Source [id number] 10/19/2019 04:28:[address] [facility] Name Value Range Interpretation Code Description Data Malathi rce(s) Supporting Document(s) COMPREHENSIVE METABOLIC PANEL [facility] COMPREHENSIVE METABOLIC PANEL Sodium [Moles/volume] in Serum or Plasma 138 mEq/L 134 - 153 [facility] Potassium [Moles/volume] in Serum or Plasma 4.0 mEq/L 3.6 - 5.0 [facility] Chloride [Moles/volume] in Serum or Plasma 98 mEq/L 98 - 107 [facility] Carbon dioxide, total [Moles/volume] in Serum or Plasma 27 MEQ/L 22 - 30 [facility] Glucose [Mass/volume] in Serum or Plasma 225 MG/DL 65 - [address] [facility] BUN 14 MG/DL 7 - 21 [facility] Creatinine [Mass/volume] in Serum or Plasma 1.0 MG/DL 0.7 - 1.5 [facility] BUN/CREAT 14 8 - 27 [facility] Protein [Mass/volume] in Serum or Plasma 7.5 G/DL 6.3 - 8.2 [facility] Albumin [Mass/volume] in Serum or Plasma 4.7 G/DL 3.9 - 5.0 [facility] Globulin [Mass/volume] in Serum by calculation 2.8 GM/DL 2.4 - 3.2 [facility] A/G RATIO 1.7 0.8 - 2.0 [facility] Calcium [Mass/volume] in Serum or Plasma 9.7 MG/DL 8.4 - 10.2 [facility] Bilirubin.total [Mass/volume] in Serum or Plasma <0.7 MG/DL 0.2 - 1.3 [facility] Alkaline phosphatase [Enzymatic activity/volume] in Serum or Plasma 87 U/L 38 - 126 [facility] Aspartate aminotransferase [Enzymatic activity/volume] in Serum or Plasma 17 U/L 5 - 40 [facility] Alanine aminotransferase [Enzymatic activity/volume] in Seru m or Plasma 9 U/L 7 - 56 [facility] Anion gap 3 in Serum or Plasma 13.0 mmol/L 8.0 - 16.0 [facility]GE 69 [facility] GFR 58 mL/min [facility] AFR AMER GFR >60 [facility] Male GFR In terprentation [...] >32 mL/min Normal ID Date Data Source [id number] 10/19/2019 04:27:[address] [facility] Name Value Range Interpretation Code Description Data Malathi rce(s) Supporting Document(s) BNP 291 PG/ML 0 - [address] [facility] ID Date Data Source [id number] 10/19/2019 04:22:[address] [facility] Name Value Range Interpretation Code Description Data Malathi rce(s) Supporting Document(s) TROPONIN T 0.01 NG/ML 0.00 - 0.10 [facility] spital TROPONIN T0.1 ng/ml Recommended as the c linical threshold value forTroponin T. ID Date Data Source [id number] 10/19/2019 04:16:00 AM T [facility] Value Range Interpretation Code Description Data Malathi rce(s) Supporting Document(s) Fibrin D-dimer FEU [Mass/volume] in Platelet poor plasma 0.45 ug /mL 0.27 - 0.50 [facility] ID Date Data Source [id number] 10/19/2019 04:10:[address] [facility] Name Value Range Interpretation Code Description Data Malathi rce(s) Supporting Document(s) CBC W/AUTOMATED DIFF [facility] COMPLETE BLOOD COUNT Leukocytes [#/volume] in Blood by Automated count 8.3 10^3/uL 4.2 - [address] [facility] Erythrocytes [#/volume] in Blood by Automated count 4.34 10^6/uL 4. 20 - 5.40 [facility] Hemoglobin [Mass/volume] in Blood 12.3 g/dL 12.0 - 16.0 [facility] Hematocrit [Volume Fraction] of Blood by Automated count 38.2 % 3 7.0 - 47.0 [facility] Erythrocyte mean corpuscular volume [Entitic volume] by Auto mated count 88.0 fL 81.0 - 101 [facility] Erythrocyte mean corpuscular hemoglobin [Entitic mass] by Automated count 28.3 pg 27.0 - 34.0 [facility] Erythrocyte mean corpuscular hemoglobin concentration [Mass/volume] by Automated count 32.2 g/dL 31.0 - 36.0 [facility] Erythrocyte distribution width [Ratio] by Automated count 13.3 % 11.5 - 14.5 [facility] Platelets [#/volume] in Blood by Automated count 226 10^3/uL 150 - [address] [facility] Platelet mean volume [Entitic volume] in Blood by Automated count 10.1 fL 7.4 - 10.4 [facility] Neutrophils/100 leukocytes in Blood by Automated count 81.9 % 37. 0 - 80.[address] [facility] Lymphocytes/100 leukocytes in Blood by Manual count 11.3 % 25.0 - 40.[address] [facility] Monocytes/100 leukocytes in Blood by Automated count 5.5 % 3.0 - 8.0 [facility] Eosinophils/100 leukocytes in Blood by Automated count 0.7 % 0.0 - 7.0 [facility] Basophils/100 leukocytes in Blood by Automated count 0.4 % 0.0 - 2.5 [facility] %IG 0.2 % 0.0 - 0.0 [facility] %NRBC 0.0 % 0.0 - 0.0 [facility] Neutrophils [#/volume] in Blood by Automated count 6.80 10^3/uL 2.00 - 6.90 [facility] Lymphocytes [#/volume] in Blood by Automated count 0.94 10^3/uL 0.60 - 3.40 [facility] Monocytes [#/volume] in Blood by Automated count 0.46 10^3/uL 0.00 - 0.90 [facility] Eosinophils [#/volume] in Blood by Automated count 0.06 10^3/uL 0.00 - 0.70 [facility] Basophils [#/volume] in Blood by Automated count 0.03 10^3/uL 0.00 - 0.20 [facility] #IG 0.02 10^3/uL 0.00 - 0.10 [facility] #NRBC 0.00 10^3/uL 0.00 - 0.00 [facility] MANUAL DIFF NOT INDICATED [facility] RBC MORPH NOT INDICATED [facility] spital ID Date Data Source [id number] 08/27/2019 01:55:00 PM EDT [facility] ([facility] Name Value Range Interpretation Code Description Data Malathi rce(s) Supporting Document(s) Laboratory test finding (navigational concept) Laboratory test result [facility] ([facility] Testing was performed using the katheryn(R) SARS-CoV-2 test. This test was developed and its performance characteristics determined by [facility]. This test has not been FDA [...] revoked sooner. Performed at: RN - [facility] [address] [id number] [employer]: Cadence Dumont MD, Phone: [phone] Not Detected ID Date Data Source [id number] 08/27/2019 01:55:00 PM EDT [facility] Name Value Range Interpretation Code Description Data Malathi rce(s) Supporting Document(s) SARS CORONAVIRUS 2 RNA [facility] This lab was ordered by [facility] and reported by [facility]. ID Date Data Source [id number] 07/01/2019 10:05:00 AM EST [facility] ([facility] Name Value Range Interpretation Code Description Data Malathi rce(s) Supporting Document(s) Hemoglobin A1c/Hemoglobin.total in Blood 6.7 % 4.50-6.20 Above high normal [facility] ([facility] ID Date Data Source [id number] 07/01/2019 10:05:00 AM EST [facility] ([facility] Name Value Range Interpretation Code Description Data Malathi rce(s) Supporting Document(s) Alb 80 mg/L [facility] ([facility] Creatinine, Urine 300 mg/dL 10-300 [facility] A/C Ratio Laboratory test result [facility] ([facility] ID Date Data Source [id number] 07/01/2019 10:04:00 AM EST [facility] ([facility] Name Value Range Interpretation Code Description Data Malathi rce(s) Supporting Document(s) Thyrotropin [Units/volume] in Serum or Plasma 4.820 ulU/mL 0. 60-4.8 Above high normal [facility] ([facility] ) ID Date Data Source [id number] 07/01/2019 10:02:00 AM EST [facility] ([facility] Name Value Range Interpretation Code Description Data Malathi rce(s) Supporting Document(s) Glu 154 mg/dL 70-110 Above high normal [facility] ([facility] CHRONIC KIDNEY DISEASE STAGING PER NKF: [...] mL/min Normal BUN/Creatinine Ratio 15.4 Calc [facility] ([facility] CHRONIC KIDNEY DISEASE STAGING PER [...] mL/min Normal BUN 13 mg/dL 8-23 [facility] ([facility] CHRONIC KIDNEY DISEASE [...] mL/min Normal Creat 0.8 mg/dL 0.5-1.0 [facility] CHRONIC KIDNEY DISEASE [...] mL/min Normal K 4.0 mmol/L 3.5-5.1 [facility] ([facility] CHRONIC KIDNEY DISEASE [...] mL/min Normal Na 137 mmol/L 136-145 [facility] ([facility] CHRONIC KIDNEY DISEASE STAGING PER [...] 21.2 mmol/L 22.0-29.0 Below low normal [facility] ([facility] CHRONIC KIDNEY DISEASE [...] mL/min Normal CL 103.5 mmol/L 98.0-107.0 [facility] ([facility] CHRONIC KIDNEY DISEASE STAGING [...] mL/min Normal A/G Ratio 1.6 Calc [facility] ([facility] CHRONIC KIDNEY DISEASE [...] Normal Alt (SGPT) 13 U/L 0-41 [facility] CHRONIC KIDNEY DISEASE STAGING PER [...] Normal Ast (Sgot) 17 U/L 0-40 [facility] CHRONIC KIDNEY DISEASE STAGING PER [...] mL/min Normal Tbili 0.42 mg/dL 0.0-1.2 [facility] ([facility] CHRONIC KIDNEY [...] mL/min Normal eGFR 85 # [facility] ( [facility] CHRONIC KIDNEY [...] and above >32 mL/min Normal eGFR Non-Afr. Iranian 74 # [facility] ([facility] [...] Pulse oximetry 98 % 98 % [facility] ([facility] Body mass index (BMI) [Ratio] 47.9 kg/m2 47.9 k g/m2 [facility] ([facility] [place] body weight 110 [lb_av] 110 [lb_av] MEDEN T ([facility] Body weight 262.00 [lb_av] 262.00 [lb_av] MEDEN T ([facility] Body height 62 [in_i] 62 [in_i] AFTAB ([facility] 5'2" Respiratory rate 14 /min 14 /min MEDMARIN ( [facility] Heart rate 76 /min 76 /min AFTAB ([facility] Body temperature 96.6 [degF] 96.6 [degF] MEDMARIN ([facility] Diastolic blood pressure 66 mm[Hg] 66 mm[Hg] AFTAB ([facility] Systolic blood pressure 110 mm[Hg] 110 mm[Hg] Shelby VILLATORO ([facility] Body weight 117.936 kg 117.936 kg [facility] ([facility], ) [place] body weight 120 [lb_av] 120 [lb_av] MEDEN T ([facility], ) Body mass index (BMI) [Ratio] 44.6 kg/m2 44.6 k g/m2 MEDENT ([facility], ) Body weight 260.00 [lb_av] 260.00 [lb_av] MEDEN T ([facility]) Body height 64 [in_i] 64 [in_i] MEDENT ([facility]) 5'4" Body temperature 96.9 [degF] 96.9 [degF] MEDENT ([facility]) Oxygen saturation in Arterial blood by Pulse oximetry 97 % 97 % MEDENT ([facility] Body mass index (BMI) [Ratio] 47.5 kg/m2 47.5 k g/m2 MEDENT ([facility] [place] body weight 110 [lb_av] 110 [lb_av] MEDEN T ([facility] Body weight 260.00 [lb_av] 260.00 [lb_av] MEDEN T ([facility] Body height 62 [in_i] 62 [in_i] MEDENT ([facility] 5'2" Respiratory rate 14 /min 14 /min MEDENT ( [facility] Heart rate 78 /min 78 /min MEDENT ([facility] Body temperature 97.8 [degF] 97.8 [degF] MEDENT ([facility] Diastolic blood pressure 54 mm[Hg] 54 mm[Hg] MEDENT ([facility] Systolic blood pressure 102 mm[Hg] 102 mm[Hg] M EDENT ([facility] Oxygen saturation in Arterial blood by Pulse oximetry 95 % 95 % MEDENT ([facility] Body mass index (BMI) [Ratio] 47.0 kg/m2 47.0 k g/m2 MEDENT ([facility] [place] body weight 110 [lb_av] 110 [lb_av] MEDEN T ([facility] Body weight 257.00 [lb_av] 257.00 [lb_av] MEDEN T ([facility] Body height 62 [in_i] 62 [in_i] MEDENT ([facility] 5'2" Respiratory rate 18 /min 18 /min MEDENT ( [facility] Heart rate 90 /min 90 /min MEDENT ([facility] Body temperature 97.0 [degF] 97.0 [degF] MEDENT ([facility] Diastolic blood pressure 70 mm[Hg] 70 mm[Hg] MEDENT ([facility] Systolic blood pressure 128 mm[Hg] 128 mm[Hg] M EDENT ([facility] Oxygen saturation in Arterial blood by Pulse oximetry 96 % 96 % MEDMARIN ([facility] Body mass index (BMI) [Ratio] 45.7 kg/m2 45.7 k g/m2 MEDENT ([facility] Body weight 250.00 [lb_av] 250.00 [lb_av] MEDEN T ([facility] Body height 62 [in_i] 62 [in_i] MEDENT [facility] 5'2" Respiratory rate 18 /min 18 /min MEDENT ( [facility] Heart rate 96 /min 96 /min MEDENT ([facility] Body temperature 97.8 [degF] 97.8 [degF] MEDENT ([facility] Diastolic blood pressure 68 mm[Hg] 68 mm[Hg] MEDENT ([facility] Systolic blood pressure 118 mm[Hg] 118 mm[Hg] M EDENT ([facility] ID Date Data Source [id number] 10/26/2019 10:11:[address] [facility] Name Value Range Interpretation Code Description Data Source(s) WEIGHT RECORDED 266.80 pounds 266.80 pounds [facility] Height [address] [facility]
[2020-06-08] MEDS: LORazepam 1 MG TAB PO SCH ×2 (21:00→22:27)
[2020-06-08] MEDS: HumaLOG INSULIN (NovoLOG) PER UNIT SC SCH (22:19)
[2020-06-08 22:21] VITALS: BP 106/59; O2SAT 94
[2020-06-08] MEDS: AMITRIPTYLINE 50 MG TAB PO SCH (22:27)
[2020-06-08] MEDS: ENOXAPARIN 60MG/0.6ML SYRINGE (J1650 PER 10MG) SC SCH (22:29)
[2020-06-08] MEDS: LEVOTHYROXINE 75MCG TABLET (0.075MG) PO SCH (23:20)
[2020-06-08] MEDS: busPIRone 5 MG TAB PO SCH (23:20)
[2020-06-09] VITALS (8 sets, daily range): BP systolic 106–115; BP diastolic 51–78; O2SAT 90–95
[2020-06-09 07:08] LABS: BASO % 0.2 % (0.0-1.0); HEMATOCRIT 32.8 % (36.0-47.0); HEMOGLOBIN 10.6 g/dl (12.0-15.5); LYMPH # 0.5 10^3/uL (1.5-5.0); LYMPH % 13.1 % (24.0-44.0); MEAN CORPUSCULAR HEMOGLOBIN 28.3 pg (27.0-33.0); MEAN CORPUSCULAR HGB CONC 32.3 g/dl (32.0-36.5); MEAN CORPUSCULAR VOLUME 87.7 fl (80.0-96.0); MONO # 0.1 10^3/uL (0.0-0.8); MONO % 3.2 % (0.0-5.0); NEUTROPHILS # 3.3 10^3/uL (1.5-8.5); NEUTROPHILS % 82.8 % (36.0-66.0); PLATELET COUNT, AUTOMATED 354 10^3/uL (150-450); RED BLOOD COUNT 3.74 10^6/uL (4.00-5.40)
[2020-06-09 07:22] LABS: INR 1.07; PROTHROMBIN TIME 14.1 SECONDS (12.5-14.3)
[2020-06-09 07:23] LABS: PARTIAL THROMBOPLASTIN TIME 34.8 SECONDS (24.2-38.5)
[2020-06-09 07:26] LABS: D-DIMER QUANT 2563.12 ng/ml (<500)
[2020-06-09 07:43] LABS: BLOOD UREA NITROGEN 20 MG/DL (7-18); CALCIUM LEVEL 8.2 MG/DL (8.8-10.2); CARBON DIOXIDE LEVEL 26 MEQ/L (21-32); CHLORIDE LEVEL 108 MEQ/L (98-107); FERRITIN 776 NG/ML (8-252); GLOMERULAR FILTRATION RATE > 60.0 (>39); GLUCOSE, FASTING 199 MG/DL (70-100); MAGNESIUM LEVEL 1.9 MG/DL (1.8-2.4); POTASSIUM SERUM 4.3 MEQ/L (3.5-5.1); SODIUM LEVEL 141 MEQ/L (136-145)
[2020-06-09] MEDS: HumaLOG INSULIN (NovoLOG) PER UNIT SC SCH ×4 (08:14→20:39)
[2020-06-09] MEDS: dexameTHASONE 4 MG/ML 1ML VIAL (J1100 PER 1MG) IV SCH (08:14)
[2020-06-09] MEDS: ENOXAPARIN 60MG/0.6ML SYRINGE (J1650 PER 10MG) SC SCH ×2 (08:15→20:49)
[2020-06-09] MEDS: ASPIRIN 81 MG ENTERIC TAB PO SCH (08:15)
[2020-06-09] MEDS: busPIRone 5 MG TAB PO SCH ×2 (08:15→20:49)
[2020-06-09] MEDS: bisoproloL fumarate 10 MG TAB PO SCH (08:15)
[2020-06-09] MEDS: ramipriL 5 MG CAP PO SCH (08:16)
[2020-06-09] MEDS: CETIRIZINE (ZyrTEC) 10 MG TAB PO SCH (08:16)
[2020-06-09] MEDS: ROSUVASTATIN 10 MG TAB (CRESTOR) PO SCH (08:16)
[2020-06-09] MEDS: MONTELUKAST 10 MG TAB PO SCH (08:16)
--- NOTE | 2020-06-09 14:08 | IPNPDOC ---
Text Note Date of Service The patient was seen on 06/09/20. NOTE Subjective: Patient is a 70-year-old female with a PMHx of CAD, DM2, COPD who was diagnosed with COVID19 on 06/01 presented to the ER with weakness. Patient reports that her symptoms started with upper respiratory tract infection like illness that progressed to diarrhea with nausea but arrival to emergency room, patient received a nebulization treatment, which had improved her symptoms. Patient was admitted to the hospitalist service for weakness. Patient was seen and examined at the bedside. Currently reports that she feels better than yesterday. She was able to be titrated down to room air. She denies any CP, or palpitations. Denies any vomiting, reports some nausea. Denies any abdominal pain, constipation or diarrhea. Objective: Vitals (See below) General: Lying in bed, no acute distress, comfortable, AAOx3 HEENT: NC, AT CVS: +S1S2 Lungs: Fair air entry b/l, no significant wheezing, rhonchi or rales Abdomen: Soft, ND, NT Extremities: - Edema, - Calf tenderness Imaging: CXR 06/08: Cardiomegaly and lung field opacities as described above. Findings consistent with CHF. Certainly, pneumonia cannot be ruled out. Assessment and plan: Shortness of breath - likely 2/2 COVID19 pneumonia; possibly component of fluid overload - Clinically she reports improvement of her breathing - Has been tapered off of room air - COVID positive on 06/01/20 - Inflammatory markers are improving - Imaging noted above - Will trend procalcitonin - Will check ECHO - c/w Dexamethasone (Day #2) - Will provide small dose of Lasix today - Will have PT evaluation COPD - No evidence of exacerbation - c/w inhaled therapy as ordered CAD - c/w ASA and Rosuvastatin HTN - BP well controlled - c/w Lisinopril and Bisoprolol DLP - c/w Rosuvastatin DM2 - c/w ISS Hypothyroidism - c/w Levothyroxine Mood disorder / Anxiety - c/w Buspirone / Amitriptyline / Ativan QHS GI prophylaxis - Will start Protonix while inpatient DVT prophylaxis - c/w Lovenox; weight-based prophylactic dose Disposition: - Awaiting clinical improvement - Will have PT evaluation VS,Fishbone, I+O VS, Fishbone, I+O Laboratory Tests 06/08/20 16:16 06/09/20 06:38 Vital Signs Date Time Temp Pulse Resp B/P (MAP) Pulse Ox O2 Delivery O2 Flow Rate FiO2 06/09/20 12:00 91 Room Air 06/09/20 08:15 86 119/57 06/09/20 08:00 3.0 06/09/20 04:09 97.3 19 I&O- Last 24 Hours up to 6 AM 06/09/20 05:59 Intake Total 0 ml Balance 0 ml MATTHIEU MONTANO MD Jun 09, 2020 14:08
[2020-06-09] MEDS ORDERED: FUROSEMIDE 20MG/2ML VIAL (J1940) IV ONE (14:15)
[2020-06-09] MEDS: OMEPRAZOLE 20 MG CAP PO SCH (15:24)
[2020-06-09] MEDS: FLUTICASONE PROP 0.05% NASAL SPRAY 16 GM (FLONASE) NARES SCH (20:48)
[2020-06-09] MEDS: LEVOTHYROXINE 75MCG TABLET (0.075MG) PO SCH (20:49)
[2020-06-09] MEDS: LORazepam 1 MG TAB PO SCH (20:49)
[2020-06-09] MEDS: AMITRIPTYLINE 50 MG TAB PO SCH (20:49)
[2020-06-10] VITALS: O2SAT 90
[2020-06-10 04:22] VITALS: BP 104/50
[2020-06-10 06:17] LABS: BASO % 0.1 % (0.0-1.0); HEMATOCRIT 30.8 % (36.0-47.0); HEMOGLOBIN 10.2 g/dl (12.0-15.5); LYMPH # 0.9 10^3/uL (1.5-5.0); LYMPH % 9.2 % (24.0-44.0); MEAN CORPUSCULAR HEMOGLOBIN 28.8 pg (27.0-33.0); MEAN CORPUSCULAR HGB CONC 33.1 g/dl (32.0-36.5); MONO # 0.5 10^3/uL (0.0-0.8); MONO % 5.2 % (0.0-5.0); NEUTROPHILS # 8.4 10^3/uL (1.5-8.5); NEUTROPHILS % 84.8 % (36.0-66.0); PLATELET COUNT, AUTOMATED 388 10^3/uL (150-450); RED BLOOD COUNT 3.54 10^6/uL (4.00-5.40); WHITE BLOOD COUNT 9.9 10^3/uL (4.0-10.0)
[2020-06-10 06:40] LABS: INR 1.03; PROTHROMBIN TIME 13.7 SECONDS (12.5-14.3)
[2020-06-10 06:41] LABS: PARTIAL THROMBOPLASTIN TIME 39.1 SECONDS (24.2-38.5)
[2020-06-10 06:56] LABS: ALBUMIN 2.3 GM/DL (3.2-5.2); ALT/SGPT 22 U/L (12-78); BILIRUBIN,DIRECT 0.1 MG/DL (0.0-0.2); BILIRUBIN,TOTAL 0.3 MG/DL (0.2-1.0); CALCIUM LEVEL 8.5 MG/DL (8.8-10.2); CARBON DIOXIDE LEVEL 25 MEQ/L (21-32); CHLORIDE LEVEL 106 MEQ/L (98-107); CPK CREATINE PHOSPHOKINASE 87 U/L (26-192); CREATININE FOR GFR 1.05 MG/DL (0.55-1.30); FERRITIN 618 NG/ML (8-252); GLOMERULAR FILTRATION RATE 54.8 (>39); GLUCOSE, FASTING 202 MG/DL (70-100); LDH LACTATE DEHYDROGENASE 189 U/L (84-246); MAGNESIUM LEVEL 2.2 MG/DL (1.8-2.4); NT-PRO BNP 1948 PG/ML (<125); POTASSIUM SERUM 4.5 MEQ/L (3.5-5.1); SODIUM LEVEL 141 MEQ/L (136-145); TROPONIN I < 0.02 NG/ML (< 0.10)
[2020-06-10 06:57] LABS: BLOOD UREA NITROGEN 35 MG/DL (7-18)
[2020-06-10 08:00] VITALS: O2SAT 92
[2020-06-10 08:11] VITALS: BP 123/56
[2020-06-10] MEDS: HumaLOG INSULIN (NovoLOG) PER UNIT SC SCH ×2 (09:18→12:11)
[2020-06-10] MEDS: ENOXAPARIN 60MG/0.6ML SYRINGE (J1650 PER 10MG) SC SCH (09:18)
[2020-06-10] MEDS: dexameTHASONE 4 MG/ML 1ML VIAL (J1100 PER 1MG) IV SCH (09:18)
[2020-06-10 09:19] VITALS: BP 123/56
[2020-06-10] MEDS: MONTELUKAST 10 MG TAB PO SCH (09:19)
[2020-06-10] MEDS: bisoproloL fumarate 10 MG TAB PO SCH (09:19)
[2020-06-10] MEDS: busPIRone 5 MG TAB PO SCH (09:19)
[2020-06-10] MEDS: ROSUVASTATIN 10 MG TAB (CRESTOR) PO SCH (09:19)
[2020-06-10] MEDS: OMEPRAZOLE 20 MG CAP PO SCH (09:19)
[2020-06-10] MEDS: CETIRIZINE (ZyrTEC) 10 MG TAB PO SCH (09:19)
[2020-06-10] MEDS: ASPIRIN 81 MG ENTERIC TAB PO SCH (09:19)
[2020-06-10] MEDS: ramipriL 5 MG CAP PO SCH (09:19)
[2020-06-10] MEDS: FLUTICASONE PROP 0.05% NASAL SPRAY 16 GM (FLONASE) NARES SCH (09:20)
[2020-06-10] MEDS ORDERED: DEXA6TAB PO (09:49)
--- NOTE | 2020-06-10 11:39 | DS.PDOC ---
Discharge Summary General Date of Admission Jun 08, 2020 at 18:32 Date of Discharge 06/10/2020 Discharge Summary PROCEDURES PERFORMED DURING STAY: [None]. ADMITTING DIAGNOSES / DISCHARGE DIAGNOSES: Shortness of breath - likely 2/2 COVID19 pneumonia; less likely 2/2 component of fluid overload COPD CAD HTN DLP DM2 Hypothyroidism Mood disorder / Anxiety GI prophylaxis DVT prophylaxis COMPLICATIONS/CHIEF COMPLAINT: Weakness HISTORY OF PRESENT ILLNESS: Patient is a 70-year-old female with a PMHx of CAD, DM2, COPD who was diagnosed with COVID19 on 06/01 presented to the ER with weakness. Patient reports that her symptoms started with upper respiratory tract infection like illness that progressed to diarrhea with nausea but arrival to emergency room, patient received a nebulization treatment, which had improved her symptoms. Patient was admitted to the hospitalist service for weakness. HOSPITAL COURSE: Shortness of breath - likely 2/2 COVID19 pneumonia; less likely 2/2 component of fluid overload - Notes that her breathing is doing significantly better - On room air; has been ambulating without oxygen - COVID positive on 06/01/20 - Inflammatory markers continue to downtrend - Imaging noted above - Procalcitonin tending down without antibiotics - c/w Dexamethasone (Day #3); will continue on discharge - Will provide small dose of Lasix today - PT evaluation complete; has been cleared for DC Home COPD - No evidence of exacerbation - c/w inhaled therapy as ordered CAD - c/w ASA and Rosuvastatin HTN - BP well controlled - c/w Lisinopril and Bisoprolol DLP - c/w Rosuvastatin DM2 - c/w ISS Hypothyroidism - c/w Levothyroxine Mood disorder / Anxiety - c/w Buspirone / Amitriptyline / Ativan QHS GI prophylaxis - c/w Protonix while inpatient DVT prophylaxis - c/w Lovenox; weight-based prophylactic dose DISCHARGE MEDICATIONS: Please see below. ALLERGIES: Please see below. PHYSICAL EXAMINATION ON DISCHARGE: Vitals (See below) General: Lying in bed, no acute distress, comfortable, AAOx3 HEENT: NC, AT CVS: +S1S2 Lungs: Fair air entry b/l, no significant wheezing, rhonchi or rales Abdomen: Soft, nondistended and nontender Extremities: No edema, - Calf tenderness LABORATORY DATA: lease see below. IMAGING: CXR 06/08: Cardiomegaly and lung field opacities as described above. Findings consistent with CHF. Certainly, pneumonia cannot be ruled out. ACTIVITY: [As tolerated]. DISCHARGE PLAN: Follow-up with primary care provider within the next 7 days Remain compliant with treatment plan and medications Return to the ER if you experience any problems DISPOSITION: Home with services DISCHARGE CONDITION: [Stable]. TIME SPENT ON DISCHARGE: 35 minutes. Vital Signs/I&Os Vital Signs Date Time Temp Pulse Resp B/P (MAP) Pulse Ox O2 Delivery O2 Flow Rate FiO2 06/10/20 09:20 92 Room Air 06/10/20 09:19 123/56 06/10/20 09:19 77 06/10/20 08:11 18 1.0 06/10/20 04:22 98.1 I&O- Last 24 Hours up to 6 AM 06/10/20 06:00 Intake Total 840 ml Output Total 400 ml Balance 440 ml Laboratory Data Labs 24H Laboratory Tests 2 06/09/20 11:48: Bedside Glucose (Misc Panel) 315H 06/09/20 16:28: Bedside Glucose (Misc Panel) 212H 06/09/20 16:50: 06/09/20 19:59: Bedside Glucose (Misc Panel) 248H 06/10/20 06:03: Immature Granulocyte % (Auto) 0.7, Neutrophils (%) (Auto) 84.8H, Lymphocytes (%) (Auto) 9.2L, Monocytes (%) (Auto) 5.2H, Eosinophils (%) (Auto) 0.0, Basophils (%) (Auto) 0.1, Neutrophils # (Auto) 8.4, Lymphocytes # (Auto) 0.9L, Monocytes # (Auto) 0.5, Eosinophils # (Auto) 0.0, Basophils # (Auto) 0.0, Nucleated Red Blood Cells % (auto) 0.0, Prothrombin Time 13.7, Prothromb Time International Ratio 1.03, Activated Partial Thromboplast Time 39.1H, Fibrinogen 616H, Anion Gap 10, Glomerular Filtration Rate 54.8, Calcium Level 8.5L, Magnesium Level 2.2, Ferritin 618H, Total Bilirubin 0.3, Direct Bilirubin 0.1, Aspartate Amino Transf (AST/SGOT) 20, Alanine Aminotransferase (ALT/SGPT) 22, Alkaline Phosphatase 51, Lactate Dehydrogenase 189, Total Creatine Kinase 87, Troponin I < 0.02, C-Reactive Protein, Quantitative 7.40H, XG-Iya-L-Type Natriuretic Peptide 1948H, Total Protein 6.0L, Albumin 2.3L, Albumin/Globulin Ratio 0.6L, Procalcitonin 0.08 CBC/BMP Laboratory Tests 06/10/20 06:03 FSBS Laboratory Tests Test 06/09/20 11:48 06/09/20 16:28 06/09/20 19:59 Range/Units Bedside Glucose (Misc Panel) 315 212 248 83-110 MG/DL Microbiology Microbiology 06/08/20 Blood Culture - Preliminary, Resulted No growth after 24 hours . All specim... 06/08/20 Blood Culture - Preliminary, Resulted No growth after 24 hours . All specim... Discharge Medications Scheduled Amitriptyline HCl (Amitriptyline HCl) 50 Mg Tablet, 50 MG PO QHS, (Reported) Aspirin (Aspirin EC) 81 Mg Tablet.dr, 81 MG PO DAILY, (Reported) Bisoprolol Fumarate (Bisoprolol Fumarate) 10 Mg Tablet, 10 MG PO DAILY, (Reported) Buspirone HCl (Buspirone HCl) 15 Mg Tablet, 15 MG PO BID, (Reported) Cetirizine HCl (Cetirizine HCl) 10 Mg Tablet, 10 MG PO DAILY, (Reported) Dexamethasone (Dexamethasone) 6 Mg Tablet, 1 TAB PO ONCE Levothyroxine Sodium (Synthroid) 75 Mcg Tablet, 75 MCG PO QHS, (Reported) Lorazepam (Lorazepam) 1 Mg Tablet, 1 MG PO QHS, (Reported) Metformin HCl (Metformin HCl) 850 Mg Tablet, 850 MG PO DAILY, (Reported) Montelukast Sodium (Montelukast Sodium) 10 Mg Tablet, 10 MG PO DAILY, (Reported) Ramipril (Ramipril) 5 Mg Capsule, 5 MG PO DAILY, (Reported) Rosuvastatin Calcium (Rosuvastatin Calcium) 10 Mg Tablet, 10 MG PO DAILY, (Reported) Scheduled PRN Albuterol Sulfate (Ventolin Hfa) 18 Gm Hfa.aer.ad, 2 PUFF INH Q4H PRN for SOB/WHEEZING, (Reported) Fluticasone Propionate (Flonase Allergy Relief) 9.9 Ml [place].susp, 2 SPRAY NARES DAILY PRN for CONGESTION, (Reported) Allergies Coded Allergies: No Known Allergies (Unverified , 09/17/16) MATTHIEU MONTANO MD Jun 10, 2020 11:39
[2020-06-10 12:12] VITALS: BP 124/60
--- NOTE | 2020-06-13 11:01 | ECHO ---
DATE OF PROCEDURE: 06/09/2020 Age: 70 Gender: Female Height: 163 cm Weight: 116 kg REFERRING PHYSICIAN: Berna Montana M.D. INDICATION: Dyspnea. MEASUREMENTS: LA 3.8 cm IVS 1.3 cm LV 5.4 cm LVPW 1.1 cm Aorta 3.1 cm Mitral E wave velocity 77 Mitral A wave 72 FINDINGS: This study is of limited technical quality corresponding to patients body habitus. The patient is in sinus rhythm with mildly widened QRS complex. The left ventricle is of normal size. Mild left ventricular hypertrophy is noted. Overall likely hyperdynamic LV systolic function. I estimate LVEF 65% to 70%. Right ventricle was relatively poorly visualized, but grossly appears normal. Both atria appear normal. Aortic, mitral, and tricuspid valves appear structurally normal. Pulmonic valve was not well visualized. Trace pericardial effusion is noted. Inferior vena cava was of normal size. The aortic root is normal. The aortic arch and abdominal aorta were not well seen. Doppler interrogation reveals competent aortic, mitral, and tricuspid valves. Evaluation of diastolic function is inconclusive because of tissue Doppler velocities of the mitral annulus were not measured, but based on mitral inflow pattern I suspect grade 2 diastolic dysfunction. CONCLUSIONS: 1. Study is of fair technical quality corresponding to patients body habitus. Underlying sinus rhythm. 2. Normal LV size with mild LVH and hyperdynamic LV systolic function, estimated LVEF 65% to 70%. 3. No hemodynamically significant valvular disease. 4. Likely normal central venous pressure. 5. Unable to estimate pulmonary artery pressure. COMMENTS: Overall study most consistent with mild hypertensive heart disease. MTDD
[2020-06-13 14:17] LABS: BODY FLUID CULTURE Negative (.); LEGIONELLA ANTIGEN URINE Negative (Negative); ORGANISM ID Not indicated. (.); SPECIMEN SOURCE Not indicated. (.); URINE STREP PNEUMONIAE ANTIGEN Urine (Negative)
[2020-06-14 18:07] LABS: MYCOPLASMA PNEUMONIAE IgG 155 U/mL (0-99); MYCOPLASMA PNEUMONIAE IgM <770 U/mL (0-769)
== END 2020-06-10 16:35 | disposition home health service (06) | DRG 177 ==
LOC: EDBD 15:48 → M ED 15:48 → M ED INP 18:32 → M 4MAIN 22:09
PROVIDERS: ADMIT Family Medicine; ATTEND Internal Medicine
PROC: 3E0333Z Introduction of Anti-inflammatory into Peripheral Vein, Percutaneous Approach (ICD-10-PCS; principal; 2020-06-08)
DX: U07.1 COVID-19 (principal); J12.89 Other viral pneumonia; J44.9 Chronic obstructive pulmonary disease, unspecified; I25.10 Atherosclerotic heart disease of native coronary artery without angina pectoris; E11.9 Type 2 diabetes mellitus without complications; E03.9 Hypothyroidism, unspecified; F41.9 Anxiety disorder, unspecified; G47.33 Obstructive sleep apnea (adult) (pediatric); F32.9 Major depressive disorder, single episode, unspecified; K21.9 Gastro-esophageal reflux disease without esophagitis; Z90.49 Acquired absence of other specified parts of digestive tract; Z96.652 Presence of left artificial knee joint; Z79.82 Long term (current) use of aspirin; Z79.899 Other long term (current) drug therapy

== ENCOUNTER 2020-08-26 23:28 | Emergency (ER) | payer MEDICARE, MEDICAID ==
[~2020-08-26] VITALS: Ht 162.6 cm; Wt 111.9 kg
[~2020-08-26 23:28] MED LIST changes: +ASPI81TA26 PO; +DEXA6TAB PO; +FLON1SPR NARES; +LORA1TAB4 PO; +MONT10TA10 PO; +ROSU10TA6 PO; +SYNT75TA PO; +VENTAER INH
[2020-08-27] MEDS ORDERED: GI COCKTAIL 50ML BTL(HYOSCYAMINE/MAALOX/LIDOCAINE VISCOUS)(1:3:1) PO ONE (06:35)
[2020-08-27 06:58] LABS: BASO % 0.7 % (0.0-1.0); EOS % 0.7 % (0.0-3.0); HEMATOCRIT 40.7 % (36.0-47.0); HEMOGLOBIN 13.1 g/dl (12.0-15.5); LYMPH # 0.9 10^3/uL (1.5-5.0); LYMPH % 19.6 % (24.0-44.0); MEAN CORPUSCULAR HEMOGLOBIN 28.2 pg (27.0-33.0); MEAN CORPUSCULAR HGB CONC 32.2 g/dl (32.0-36.5); MEAN CORPUSCULAR VOLUME 87.7 fl (80.0-96.0); MONO # 0.4 10^3/uL (0.0-0.8); MONO % 9.8 % (2.0-8.0); NEUTROPHILS # 3.1 10^3/uL (1.5-8.5); NEUTROPHILS % 68.8 % (36.0-66.0); PLATELET COUNT, AUTOMATED 232 10^3/uL (150-450); RED BLOOD COUNT 4.64 10^6/uL (4.00-5.40); WHITE BLOOD COUNT 4.5 10^3/uL (4.0-10.0)
[2020-08-27 07:15] VITALS: O2SAT 94
[2020-08-27 07:27] LABS: BLOOD UREA NITROGEN 9 MG/DL (7-18); CALCIUM LEVEL 9.5 MG/DL (8.8-10.2); CARBON DIOXIDE LEVEL 28 MEQ/L (21-32); CHLORIDE LEVEL 105 MEQ/L (98-107); CPK CREATINE PHOSPHOKINASE 122 U/L (26-192); CREATININE FOR GFR 0.83 MG/DL (0.55-1.30); GLOMERULAR FILTRATION RATE > 60.0 (>39); GLUCOSE, FASTING 157 MG/DL (70-100); MB/CK RELATIVE INDEX 1.64 (< OR =4); NT-PRO BNP 346 PG/ML (<125); POTASSIUM SERUM 3.6 MEQ/L (3.5-5.1); SODIUM LEVEL 140 MEQ/L (136-145); TROPONIN I < 0.02 NG/ML (< 0.10)
[2020-08-27 07:29] LABS: MONO SCRN NEGATIVE (NEGATIVE)
[2020-08-27] MEDS ORDERED: ACETAMINOPHEN 500 MG TAB PO ONE (07:55)
--- NOTE | 2020-08-27 08:13 | REP ---
INDICATION: SOB. COMPARISON: Comparison chest x-ray June 14, 2018. TECHNIQUE: Two views.. FINDINGS: The lungs are well inflated and free of infiltrate. The pleural angles are sharp. The heart size is normal. Pulmonary vasculature is not increased. No significant bony abnormality is seen. There are degenerative changes in the thoracic spine. EKG monitoring electrodes are present. IMPRESSION: No active disease.. <Electronically signed by Petey Jaquez > 08/27/20 [id number]
[2020-08-27] MEDS ORDERED: SUCRALFATE SUSP 1GM/10ML UD PO ONE (09:05)
--- NOTE | 2020-08-27 09:44 | ECGEPIP ---
[facility] - ED Test Date: 2020-08-27 Pat Name: CONCEPCIÓN CAO Department: Room: - Gender: Female Obstetrics Gyn Physician: VANNESSA : 1950 Requested By: ADRIÁN Sotomayor PA-C Order Number: [id number] Reading MD: Chris Stark Measurements Intervals [place] Rate: 86 P: 58 [place]: 158 QRS: 13 QRSD: 98 T: 107 QT: 400 QTc: 478 Interpretive Statements Normal sinus rhythm Nonspecific ST and T wave abnormality BASELINE ARTIFACT AFFECTS INTERPRETATION Electronically Signed on 08-27-2020 9:44:03 EDT by Chris Stark
[2020-08-27] MEDS ORDERED: NYSTATIN 500,000 U/5 ML SUSP UDC PO STA (09:56)
[2020-08-27] MEDS ORDERED: ISOVUE-370 76% 100ML VIAL As Ordered ONE (10:21)
--- NOTE | 2020-08-27 10:52 | REP ---
INDICATION: r/o mass in throat/neck. COMPARISON: Comparison is made with images from maxillofacial CT study dated July 29, 2017.. TECHNIQUE: Helical scanning is acquired following the intravenous injection of 75 mL of Isovue 370. 3 mm axial images re-formatted. Coronal and sagittal MPR images are included. FINDINGS: Digital preliminary lean manufacturing engineer radiograph demonstrates that the patient is edentulous. There is degenerative disc disease in the cervical spine with anterior discogenic spurring most pronounced at C5-6 and C6-7. There are well established spurs at these levels. No bony destructive lesion is seen. No mandibular or maxillary lesion is seen. The visualized paranasal sinuses are clear. No intraorbital abnormality is appreciated. Parotid and submandibular glands are normal and symmetric. Thyroid lobes are symmetric in size. There is a 7 mm low-density area in the right lobe of the thyroid gland consistent with a cyst or nodule. No neck mass, adenopathy, or soft tissue cyst is seen. No supraclavicular adenopathy is seen. The lung apices are clear. Tonsillar and peritonsillar soft tissues are unremarkable and symmetric. No vascular lesion is seen. IMPRESSION: No neck mass or adenopathy seen. 7 mm cyst versus nodule right thyroid lobe. Otherwise unremarkable soft tissue CT study of the neck. <Electronically signed by Petey Jaquez > 08/27/20 [id number]
[2020-08-27] MEDS ORDERED: MAGIC MOUTHWASH SUSPENSION BTL SSP SCH (12:00)
[2020-08-27] MEDS ORDERED: NYST50SS PO (12:21)
[2020-08-27] MEDS ORDERED: MAGICMW SSP (12:21)
[2020-08-27 12:29] VITALS: BP 147/69
== END 2020-08-27 12:46 | disposition home or self-care (01) ==
LOC: M ED 23:28
DX: J06.9 Acute upper respiratory infection, unspecified (principal); R91.1 Solitary pulmonary nodule; E11.9 Type 2 diabetes mellitus without complications; I11.0 Hypertensive heart disease with heart failure; I50.9 Heart failure, unspecified; J44.9 Chronic obstructive pulmonary disease, unspecified; K21.9 Gastro-esophageal reflux disease without esophagitis; G47.30 Sleep apnea, unspecified; E03.9 Hypothyroidism, unspecified; F33.9 Major depressive disorder, recurrent, unspecified; F41.9 Anxiety disorder, unspecified; Z79.899 Other long term (current) drug therapy; Z79.82 Long term (current) use of aspirin; Z79.890 Hormone replacement therapy
CPT/HCPCS: 36415; 70491; 71046; 80048; 82550; 82553; 83880; 84484; 85025; 86308; 87880; 93005; 99284; Q9967

== ENCOUNTER 2020-09-25 08:01 | Emergency (ER) | payer MEDICARE, MEDICAID ==
[~2020-09-25] VITALS: Ht 162.6 cm; Wt 113.6 kg
[~2020-09-25 08:01] MED LIST changes: +MAGICMW SSP; +NYST50SS PO
[2020-09-25] MEDS ORDERED: LORazepam 1 MG TAB PO STA (08:57)
--- NOTE | 2020-09-25 09:21 | REP ---
INDICATION: chest discomfort COMPARISON: 08/27/2020. TECHNIQUE: PA/Lateral FINDINGS: Lungs: Clear, no infiltrate. Heart: Normal in size. Mediastinum: Mediastinal silhouette unremarkable. Pleural angles: Unremarkable.. Bones and soft tissues: There are degenerative changes of the spine without compression deformity. IMPRESSION: No acute pulmonary disease. <Electronically signed by Syed Driscoll > 09/25/20 [id number]
[2020-09-25 09:26] LABS: BASO # 0.1 10^3/uL (0.0-0.2); BASO % 0.6 % (0.0-1.0); EOS # 0.1 10^3/uL (0.0-0.5); EOS % 1.1 % (0.0-3.0); HEMATOCRIT 40.3 % (36.0-47.0); HEMOGLOBIN 12.8 g/dl (12.0-15.5); LYMPH # 1.1 10^3/uL (1.5-5.0); LYMPH % 14.2 % (24.0-44.0); MEAN CORPUSCULAR HEMOGLOBIN 28.3 pg (27.0-33.0); MEAN CORPUSCULAR HGB CONC 31.8 g/dl (32.0-36.5); MONO # 0.5 10^3/uL (0.0-0.8); MONO % 6.1 % (2.0-8.0); NEUTROPHILS # 6.1 10^3/uL (1.5-8.5); NEUTROPHILS % 77.7 % (36.0-66.0); PLATELET COUNT, AUTOMATED 266 10^3/uL (150-450); RED BLOOD COUNT 4.53 10^6/uL (4.00-5.40); WHITE BLOOD COUNT 7.9 10^3/uL (4.0-10.0)
[2020-09-25 09:49] LABS: AMPHETAMINES LEVEL URINE NEGATIVE (NEGATIVE); BARBITURATES URINE NEGATIVE (NEGATIVE); BENZODIAZEPINES URINE NEGATIVE (NEGATIVE); CANNABINOIDS URINE NEGATIVE (NEGATIVE); COCAINE METABOLITE URINE NEGATIVE (NEGATIVE); METHADONE URINE NEGATIVE (NEGATIVE); OPIATES URINE NEGATIVE (NEGATIVE); PHENCYCLIDINE URINE NEGATIVE (NEGATIVE)
[2020-09-25 10:00] LABS: ACETAMINOPHEN LEVEL < 2.0 UG/ML (10.0-30.0); ALBUMIN 3.8 GM/DL (3.2-5.2); ALT/SGPT 16 U/L (12-78); BILIRUBIN,TOTAL 0.4 MG/DL (0.2-1.0); BLOOD UREA NITROGEN 16 MG/DL (7-18); CALCIUM LEVEL 9.3 MG/DL (8.8-10.2); CARBON DIOXIDE LEVEL 30 MEQ/L (21-32); CHLORIDE LEVEL 108 MEQ/L (98-107); CK-MB VALUE MASS 1.5 NG/ML (<3.6); CPK CREATINE PHOSPHOKINASE 176 U/L (26-192); CREATININE FOR GFR 1.06 MG/DL (0.55-1.30); ETHYL ALCOHOL (ETHANOL) < 0.003 % (0.000-0.010); GLOMERULAR FILTRATION RATE 54.2 (>39); GLUCOSE, FASTING 148 MG/DL (70-100); MB/CK RELATIVE INDEX 0.85 (< OR =4); POTASSIUM SERUM 4.6 MEQ/L (3.5-5.1); SALICYLATE LEVEL 3.2 MG/DL (5.0-30.0); SODIUM LEVEL 142 MEQ/L (136-145); TOTAL PROTEIN 7.3 GM/DL (6.4-8.2); TROPONIN I < 0.02 NG/ML (< 0.10)
[2020-09-25] MEDS ORDERED: ATIV1TAB7 PO (12:19)
[2020-09-25 12:56] VITALS: BP 102/59
--- NOTE | 2020-09-26 13:13 | ECGEPIP ---
[facility] - ED Test Date: 2020-09-25 Pat Name: CONCEPCIÓN CAO Department: Room: - Gender: Female Leather Skinner: dennis : 1950 Requested By: JACKSON Matthews PA-C Order Number: [id number] Reading MD: Dary Mcclendon Measurements Intervals [place] Rate: 77 P: 69 [place]: 208 QRS: 33 QRSD: 96 T: 50 QT: 380 QTc: 430 Interpretive Statements Normal sinus rhythm with sinus arrhythmia Nonspecific T wave abnormality decreased rate 08/27/20 Electronically Signed on 09-26-2020 13:13:37 EDT by Dary Mcclendon
== END 2020-09-25 13:00 | disposition home or self-care (01) ==
LOC: M ED 08:01
DX: F41.9 Anxiety disorder, unspecified (principal); F33.9 Major depressive disorder, recurrent, unspecified; J44.9 Chronic obstructive pulmonary disease, unspecified; J45.909 Unspecified asthma, uncomplicated; E11.9 Type 2 diabetes mellitus without complications; I10 Essential (primary) hypertension; I25.10 Atherosclerotic heart disease of native coronary artery without angina pectoris; Z79.899 Other long term (current) drug therapy; Z79.890 Hormone replacement therapy; Z79.84 Long term (current) use of oral hypoglycemic drugs; Z79.82 Long term (current) use of aspirin

== ENCOUNTER 2020-09-30 10:47 | Emergency (ER) | payer MEDICARE, MEDICAID ==
[~2020-09-30] VITALS: Ht 162.6 cm; Wt 112.7 kg
[~2020-09-30 10:47] MED LIST changes: +ATIV1TAB7 PO
--- NOTE | 2020-09-30 11:23 | REP ---
INDICATION: CHEST PAIN. COMPARISON: Comparison chest x-ray September 25, 2020. TECHNIQUE: Portable upright AP chest radiograph. FINDINGS: Today's views exposed at a somewhat lesser level of inspiration. Monitoring electrodes are seen. Lung durán are clear. Pleural angles are sharp. Heart is not felt to be enlarged. There are degenerative changes in the thoracic spine.. IMPRESSION: No active disease. <Electronically signed by Petey Jaquez > 09/30/20 [id number]
[2020-09-30 12:18] LABS: BASO % 0.6 % (0.0-1.0); EOS # 0.1 10^3/uL (0.0-0.5); EOS % 1.8 % (0.0-3.0); HEMATOCRIT 39.4 % (36.0-47.0); HEMOGLOBIN 12.6 g/dl (12.0-15.5); LYMPH # 1.3 10^3/uL (1.5-5.0); MEAN CORPUSCULAR HEMOGLOBIN 28.3 pg (27.0-33.0); MEAN CORPUSCULAR VOLUME 88.3 fl (80.0-96.0); MONO # 0.5 10^3/uL (0.0-0.8); MONO % 7.2 % (2.0-8.0); NEUTROPHILS # 4.6 10^3/uL (1.5-8.5); NEUTROPHILS % 69.9 % (36.0-66.0); PLATELET COUNT, AUTOMATED 255 10^3/uL (150-450); RED BLOOD COUNT 4.46 10^6/uL (4.00-5.40); WHITE BLOOD COUNT 6.5 10^3/uL (4.0-10.0)
[2020-09-30 12:54] LABS: ACETAMINOPHEN LEVEL < 2.0 UG/ML (10.0-30.0); ALBUMIN 3.3 GM/DL (3.2-5.2); ALT/SGPT 14 U/L (12-78); BILIRUBIN,DIRECT < 0.1 MG/DL (0.0-0.2); BILIRUBIN,TOTAL 0.3 MG/DL (0.2-1.0); FREE T4 1.07 NG/DL (0.76-1.46); LIPASE 120 U/L (73-393); SALICYLATE LEVEL < 1.7 MG/DL (5.0-30.0); TOTAL PROTEIN 6.1 GM/DL (6.4-8.2)
[2020-09-30 12:55] LABS: ETHYL ALCOHOL (ETHANOL) < 0.003 % (0.000-0.010)
[2020-09-30 13:30] VITALS: BP 116/62
--- NOTE | 2020-09-30 20:36 | ECGEPIP ---
[facility] - ED Test Date: 2020-09-30 Pat Name: CONCEPCIÓN CAO Department: Room: - Gender: Female Cryptological Technician: hiram : 1950 Requested By: Chinedu Adamson Order Number: [id number] Reading MD: Dary Mcclendon Measurements Intervals [place] Rate: 56 P: 61 [place]: 200 QRS: 45 QRSD: 96 T: 78 QT: 444 QTc: 428 Interpretive Statements Sinus bradycardia NSTTW abnormalities decreased rate 09/25/20 Electronically Signed on 09-30-2020 20:36:05 EDT by Dary Mcclendon
== END 2020-09-30 13:40 | disposition home or self-care (01) ==
LOC: M ED 10:47
DX: F41.9 Anxiety disorder, unspecified (principal); E10.9 Type 1 diabetes mellitus without complications; I50.9 Heart failure, unspecified; J44.9 Chronic obstructive pulmonary disease, unspecified; E07.9 Disorder of thyroid, unspecified; K21.9 Gastro-esophageal reflux disease without esophagitis; Z79.899 Other long term (current) drug therapy; Z79.890 Hormone replacement therapy; Z79.84 Long term (current) use of oral hypoglycemic drugs; Z79.82 Long term (current) use of aspirin

== ENCOUNTER → 2020-10-08 | Outpatient (REF) | payer MEDICARE, MEDICAID ==
[2020-10-08 18:40] LABS: APPEARANCE, URINE HAZY (CLEAR); BACTERIA, URINE AUTO NEGATIVE (NEGATIVE); BILIRUBIN, URINE AUTO NEGATIVE (NEGATIVE); BLOOD, URINE BLOOD NEGATIVE (NEGATIVE); COLOR, URINE YELLOW (YELLOW); GLUCOSE, URINE (UA) AUTO NEGATIVE (NEGATIVE); KETONE, URINE AUTO NEGATIVE (NEGATIVE); LEUKOCYTE ESTERASE, URINE AUTO 1+ (NEGATIVE); MUCUS, URINE SMALL (NEGATIVE); NITRITE, URINE AUTO NEGATIVE (NEGATIVE); PROTEIN, URINE AUTO NEGATIVE (NEGATIVE); RBC, URINE AUTO 2 /HPF (0-3); SPECIFIC GRAVITY URINE AUTO 1.016 (1.002-1.035); SQUAMOUS EPITHELIAL CELL UR AU 1 /HPF (0-6); UROBILINOGEN, URINE AUTO 0.2 mg/dL (0.0-2.0); WBC, URINE AUTO 6 /HPF (0-3)
== END ==
LOC: M LAB REF 18:13
PROVIDERS: ATTEND Physician Assistant Medical
DX: R30.0 Dysuria (principal)

== ENCOUNTER 2020-10-11 12:15 | Emergency (ER) | payer MEDICARE, MEDICAID ==
[~2020-10-11] VITALS: Ht 165.1 cm; Wt 120.5 kg
--- NOTE | 2020-10-11 12:57 | REP ---
INDICATION: CHEST PAIN COMPARISON: 09/30/2020 TECHNIQUE: Portable AP view of the chest FINDINGS: The mediastinum and cardiac silhouette are stable and within normal limits for portable technique. The lung durán are clear without acute consolidation, effusion, or pneumothorax. Skeletal structures are intact. IMPRESSION: No acute cardiopulmonary process appreciated. <Electronically signed by Arben Renee > 10/11/20 [id number]
[2020-10-11 13:03] LABS: BASO % 0.6 % (0.0-1.0); EOS # 0.1 10^3/uL (0.0-0.5); EOS % 0.7 % (0.0-3.0); HEMATOCRIT 37.7 % (36.0-47.0); HEMOGLOBIN 12.2 g/dl (12.0-15.5); LYMPH # 0.9 10^3/uL (1.5-5.0); LYMPH % 14.1 % (24.0-44.0); MEAN CORPUSCULAR HEMOGLOBIN 28.5 pg (27.0-33.0); MEAN CORPUSCULAR HGB CONC 32.4 g/dl (32.0-36.5); MEAN CORPUSCULAR VOLUME 88.1 fl (80.0-96.0); MONO # 0.4 10^3/uL (0.0-0.8); MONO % 6.4 % (2.0-8.0); NEUTROPHILS # 5.2 10^3/uL (1.5-8.5); NEUTROPHILS % 77.6 % (36.0-66.0); PLATELET COUNT, AUTOMATED 241 10^3/uL (150-450); RED BLOOD COUNT 4.28 10^6/uL (4.00-5.40); WHITE BLOOD COUNT 6.7 10^3/uL (4.0-10.0)
[2020-10-11] MEDS ORDERED: ASPIRIN 81 MG CHEW TABLET PO ONE (13:20)
[2020-10-11 13:32] LABS: BLOOD UREA NITROGEN 15 MG/DL (7-18); CALCIUM LEVEL 9.1 MG/DL (8.8-10.2); CARBON DIOXIDE LEVEL 27 MEQ/L (21-32); CHLORIDE LEVEL 107 MEQ/L (98-107); CK-MB VALUE MASS < 1.0 NG/ML (<3.6); CPK CREATINE PHOSPHOKINASE 179 U/L (26-192); CREATININE FOR GFR 0.94 MG/DL (0.55-1.30); GLOMERULAR FILTRATION RATE > 60.0 (>39); GLUCOSE, FASTING 149 MG/DL (70-100); MB/CK RELATIVE INDEX 0.56 (< OR =4); POTASSIUM SERUM 5.4 MEQ/L (3.5-5.1); SODIUM LEVEL 140 MEQ/L (136-145); TROPONIN I < 0.02 NG/ML (< 0.10)
[2020-10-11 14:26] LABS: ALBUMIN 3.4 GM/DL (3.2-5.2); ALT/SGPT 16 U/L (12-78); BILIRUBIN,DIRECT < 0.1 MG/DL (0.0-0.2); BILIRUBIN,TOTAL 0.5 MG/DL (0.2-1.0); FREE T4 1.08 NG/DL (0.76-1.46); LIPASE 36 U/L (73-393); NT-PRO BNP 351 PG/ML (<125); THYROID STIMULATING HORMONE 0.497 uIU/ML (0.358-3.740)
[2020-10-11] MEDS ORDERED: ISOVUE-370 76% 100ML VIAL As Ordered ONE (14:59)
--- NOTE | 2020-10-11 15:24 | REP ---
INDICATION: chest pain COMPARISON: 09/18/2016 latest prior TECHNIQUE: CT angiography attention pulmonary arteries after the intravenous administration of 75 cc Isovue 370. FINDINGS: There is excellent visualization of the pulmonary arterial vasculature. There are no focal filling defects present that would be considered consistent with acute pulmonary emboli. There is no mediastinal or hilar adenopathy. There are no pleural or pericardial effusions. There is no change in the appearance of the imaged upper abdomen or imaged osseous structures. Evaluation of the lung durán shows a new 6 mm size nodule in the right middle lobe. IMPRESSION: 1. New 6 mm sized nodule in the right middle lobe. According to the revised Fleischner society criteria this represents a category 4A lesion for which a 3 month follow-up CT is recommended. 2. There is no evidence of a pulmonary embolus. Other findings as described above. <Electronically signed by Sae Gao > 10/11/20 [id number]
[2020-10-11 16:30] VITALS: BP 130/61
--- NOTE | 2020-10-12 10:51 | ED PDOC ---
Post-Departure Follow-Up cta chest faxed to dr diaz for fu Chinedu Fox MD Oct 12, 2020 10:51
--- NOTE | 2020-10-12 20:35 | ECGEPIP ---
[facility] - ED Test Date: 2020-10-11 Pat Name: CONCEPCIÓN CAO Department: Room: - Gender: Female 3D Specialist: LR : 1950 Requested By: Chinedu Adamson Order Number: [id number] Reading MD: Dary Mcclendon Measurements Intervals [place] Rate: 74 P: 58 [place]: 190 QRS: 14 QRSD: 94 T: 65 QT: 376 QTc: 417 Interpretive Statements Normal sinus rhythm NSTTW abnormalities increased rate 09/30/20 Electronically Signed on 10-12-2020 20:35:44 EDT by Dary Mcclendon
== END 2020-10-11 16:43 | disposition home or self-care (01) ==
LOC: M ED 12:15
DX: F41.0 Panic disorder [episodic paroxysmal anxiety] (principal); R07.9 Chest pain, unspecified; I11.0 Hypertensive heart disease with heart failure; I50.9 Heart failure, unspecified; G47.33 Obstructive sleep apnea (adult) (pediatric); R91.1 Solitary pulmonary nodule
CPT/HCPCS: 36415; 71045; 71275; 80048; 80076; 82550; 82553; 83690; 83880; 84439; 84443; 84484; 85025; 93005; 93041; 94760; 99285; Q9967

== ENCOUNTER → 2021-09-07 | Outpatient (REF) | payer MEDICARE, MEDICAID ==
[~2021-09-07] MED LIST changes: -MONT10TA10 PO; +MONT10TA97 PO
[2021-09-07 17:36] LABS: APPEARANCE, URINE HAZY (CLEAR); BACTERIA, URINE AUTO 1+ (NEGATIVE); BILIRUBIN, URINE AUTO NEGATIVE (NEGATIVE); BLOOD, URINE BLOOD NEGATIVE (NEGATIVE); COLOR, URINE YELLOW (YELLOW); GLUCOSE, URINE (UA) AUTO NEGATIVE (NEGATIVE); KETONE, URINE AUTO TRACE mg/dL (NEGATIVE); LEUKOCYTE ESTERASE, URINE AUTO 2+ (NEGATIVE); MUCUS, URINE SMALL (NEGATIVE); NITRITE, URINE AUTO NEGATIVE (NEGATIVE); PROTEIN, URINE AUTO NEGATIVE (NEGATIVE); RBC, URINE AUTO 1 /HPF (0-3); SPECIFIC GRAVITY URINE AUTO 1.024 (1.002-1.035); SQUAMOUS EPITHELIAL CELL UR AU 1 /HPF (0-6); TRANSITIONAL EPITHELIAL AUTO <1 /HPF; UROBILINOGEN, URINE AUTO 0.2 mg/dL (0.0-2.0); WBC, URINE AUTO 14 /HPF (0-3)
== END ==
LOC: M LAB REF 16:33
PROVIDERS: ATTEND Physician Assistant
DX: N39.0 Urinary tract infection, site not specified (principal)

== ENCOUNTER → 2021-09-25 | Outpatient (CLI) | payer MEDICARE, MEDICAID | LOC: M PLAIMG 14:01 | PROVIDERS: ATTEND Internal Medicine | DX: C34.90 Malignant neoplasm of unspecified part of unspecified bronchus or lung (principal) ==

== ENCOUNTER 2022-04-16 04:04 | Emergency (ER) | payer MEDICARE, MEDICAID ==
[~2022-04-16] VITALS: Ht 167.6 cm; Wt 113.6 kg
[2022-04-16 05:38] LABS: BASO % 0.3 % (0.0-1.0); EOS # 0.1 10^3/uL (0.0-0.5); EOS % 0.9 % (0.0-3.0); HEMATOCRIT 35.8 % (36.0-47.0); HEMOGLOBIN 11.5 g/dl (12.0-15.5); LYMPH # 1.4 10^3/uL (1.5-5.0); LYMPH % 14.8 % (24.0-44.0); MEAN CORPUSCULAR HEMOGLOBIN 28.8 pg (27.0-33.0); MEAN CORPUSCULAR HGB CONC 32.1 g/dl (32.0-36.5); MEAN CORPUSCULAR VOLUME 89.7 fl (80.0-96.0); MONO # 0.5 10^3/uL (0.0-0.8); MONO % 5.9 % (2.0-8.0); NEUTROPHILS # 7.1 10^3/uL (1.5-8.5); NEUTROPHILS % 77.9 % (36.0-66.0); PLATELET COUNT, AUTOMATED 252 10^3/uL (150-450); RED BLOOD COUNT 3.99 10^6/uL (4.00-5.40); WHITE BLOOD COUNT 9.2 10^3/uL (4.0-10.0)
[2022-04-16 06:02] LABS: BILIRUBIN,DIRECT 0.2 MG/DL (<0.4); CK-MB VALUE MASS 1.3 NG/ML (<3.6)
[2022-04-16 06:05] LABS: THYROID STIMULATING HORMONE 3.194 uIU/ML (0.55-4.78)
[2022-04-16 06:24] LABS: ALBUMIN 3.5 G/DL (3.2-5.2); BILIRUBIN,TOTAL 0.5 MG/DL (0.3-1.2); CALCIUM LEVEL 9.2 MG/DL (8.3-10.6); CREATININE FOR GFR 0.98 MG/DL (0.55-1.30); GLOMERULAR FILTRATION RATE 59.1 (>39); MB/CK RELATIVE INDEX 0.88 (< OR =4); POTASSIUM SERUM 4.3 MMOL/L (3.5-5.1); TOTAL PROTEIN 6.5 G/DL (5.7-8.2)
[2022-04-16] MEDS ORDERED: ISOVUE-370 76% 100ML VIAL As Ordered ONE (07:10)
[2022-04-16 08:40] LABS: CK-MB VALUE MASS 1.6 NG/ML (<3.6)
[2022-04-16 08:42] LABS: MB/CK RELATIVE INDEX 1.14 (< OR =4)
[2022-04-16 09:45] VITALS: BP 136/61
== END 2022-04-16 10:13 | disposition home or self-care (01) ==
LOC: M ED 04:04
DX: R06.00 Dyspnea, unspecified (principal); B34.9 Viral infection, unspecified; I25.10 Atherosclerotic heart disease of native coronary artery without angina pectoris; E11.9 Type 2 diabetes mellitus without complications; I10 Essential (primary) hypertension; J44.9 Chronic obstructive pulmonary disease, unspecified; K21.9 Gastro-esophageal reflux disease without esophagitis; G47.33 Obstructive sleep apnea (adult) (pediatric); K76.0 Fatty (change of) liver, not elsewhere classified; Z79.82 Long term (current) use of aspirin; Z79.84 Long term (current) use of oral hypoglycemic drugs; Z79.890 Hormone replacement therapy; Z79.899 Other long term (current) drug therapy
CPT/HCPCS: 71045; 71275; 80047; 80048; 80076; 82550; 82553; 83605; 83880; 84443; 84484; 85025; 87040; 87486; 87581; 87633; 87798; 93005; 93041; 94760; 99285; Q9967

== ENCOUNTER 2023-01-21 06:16 | Day surgery (SDC) | payer MEDICARE, MEDICAID ==
[~2023-01-21] VITALS: Ht 165.1 cm; Wt 115.8 kg
[~2023-01-21 06:16] MED LIST changes: -AMIT25TA17 PO; +AMIT25TA19 PO; +BSS IRRIG/VANCO(10MG)/TOBRA(5MG)/EPINEPH(1:1000-0.5CC)500ML BAG-ORONLY IR ONE; +CYCLOPENTOLATE 1% OPHTH SOLN 2ML BTL OS SCH; +LIDOCAINE 3.5 % 1ML OPHTH TOPICAL GEL OU ONE; +LORA1TAB23 PO; -LORA1TAB4 PO; +NYST-38 PO; -NYST50SS PO; +OFLOXACIN 0.3 % (OCUFLOX) OPTH SOL 5ML OS ONE; +OMEP-173 PO; +PHENYLEPHRINE 10% OPHTH SOL 5ML OS PRN; +PHENYLEPHRINE 2.5% OPHTH SOL 2ML OS SCH; +TROPICAMIDE 1% OPHTH SOLN 15ML OS SCH
[2023-01-21] MEDS ORDERED: LIDOCAINE 1% SDV 5ML VIAL As Ordered ONE (06:48)
[2023-01-21] MEDS ORDERED: CEFUROXIME 1MG/0.1ML INTRACAMERAL INJ As Ordered ONE (06:48)
[2023-01-21] MEDS ORDERED: MIDAZOLAM INJ 2MG/2ML VIAL As Ordered ONE (06:49)
[2023-01-21] MEDS ORDERED: fentaNYL 100 MCG/2 ML INJECTION As Ordered ONE (06:50)
[2023-01-21 08:36] VITALS: BP 139/72; TEMP 96.6; O2SAT 97
== END 2023-01-21 08:45 | disposition home or self-care (01) ==
LOC: M SDC 06:16
PROVIDERS: ATTEND Ophthalmology
DX: H25.12 Age-related nuclear cataract, left eye (principal); I10 Essential (primary) hypertension; R60.0 Localized edema; E11.9 Type 2 diabetes mellitus without complications; J44.9 Chronic obstructive pulmonary disease, unspecified; F41.9 Anxiety disorder, unspecified; F32.A Depression, unspecified; Z79.84 Long term (current) use of oral hypoglycemic drugs; G47.30 Sleep apnea, unspecified; M79.7 Fibromyalgia; K21.9 Gastro-esophageal reflux disease without esophagitis; K57.92 Diverticulitis of intestine, part unspecified, without perforation or abscess without bleeding
CPT/HCPCS: 66984; J0697; J2250; J3010; V2632

== ENCOUNTER 2023-02-28 09:30 | Emergency (ER) | payer MEDICARE, MEDICAID ==
[~2023-02-28] VITALS: Ht 162.6 cm; Wt 115.5 kg
[~2023-02-28 09:30] MED LIST changes: -BSS IRRIG/VANCO(10MG)/TOBRA(5MG)/EPINEPH(1:1000-0.5CC)500ML BAG-ORONLY IR ONE; -CYCLOPENTOLATE 1% OPHTH SOLN 2ML BTL OS SCH; -LIDOCAINE 3.5 % 1ML OPHTH TOPICAL GEL OU ONE; -OFLOXACIN 0.3 % (OCUFLOX) OPTH SOL 5ML OS ONE; -PHENYLEPHRINE 10% OPHTH SOL 5ML OS PRN; -PHENYLEPHRINE 2.5% OPHTH SOL 2ML OS SCH; -TROPICAMIDE 1% OPHTH SOLN 15ML OS SCH
[2023-02-28] MEDS ORDERED: KETOROLAC 30 MG/ML 1ML VIAL IV ONE (13:25)
[2023-02-28] MEDS ORDERED: METOCLOPRAMIDE INJ 10MG/2ML VIAL IV ONE (13:25)
[2023-02-28] MEDS ORDERED: NS 1,000 ML IV ONE (13:25)
[2023-02-28 13:59] LABS: BASO % 0.7 % (0.0-1.0); EOS # 0.2 10^3/uL (0.0-0.5); EOS % 4.3 % (0.0-3.0); HEMATOCRIT 36.8 % (36.0-47.0); HEMOGLOBIN 12.2 g/dl (12.0-15.5); LYMPH # 1.4 10^3/uL (1.5-5.0); LYMPH % 26.2 % (24.0-44.0); MEAN CORPUSCULAR HEMOGLOBIN 29.8 pg (27.0-33.0); MEAN CORPUSCULAR HGB CONC 33.2 g/dl (32.0-36.5); MEAN CORPUSCULAR VOLUME 89.8 fl (80.0-96.0); MONO # 0.7 10^3/uL (0.0-0.8); MONO % 12.2 % (2.0-8.0); NEUTROPHILS % 56.2 % (36.0-66.0); PLATELET COUNT, AUTOMATED 261 10^3/uL (150-450); WHITE BLOOD COUNT 5.4 10^3/uL (4.0-10.0)
[2023-02-28 14:22] LABS: CALCIUM LEVEL 8.6 MG/DL (8.3-10.6); CREATININE FOR GFR 1.1 MG/DL (0.55-1.30); GLOMERULAR FILTRATION RATE 51.7 (>39); POTASSIUM SERUM 4.8 MMOL/L (3.5-5.1)
[2023-02-28 14:30] LABS: ERYTHROCYTE SEDIMENTATION RATE 47 mm/hr (0-30)
[2023-02-28 14:33] LABS: C REACTIVE PROTEIN QUANTITATIV 3.5 MG/DL (<1.0)
[2023-02-28] MEDS ORDERED: dexAMETHasone 20MG/5ML VIAL IV ONE (15:35)
[2023-02-28] MEDS ORDERED: BENZ200C70 PO (15:48)
[2023-02-28 16:34] VITALS: BP 108/53; TEMP 97.5; O2SAT 99
== END 2023-02-28 16:37 | disposition home or self-care (01) ==
LOC: M ED 09:30
DX: U07.1 COVID-19 (principal); R51.9 Headache, unspecified; R05.9 Cough, unspecified; R53.83 Other fatigue; I50.20 Unspecified systolic (congestive) heart failure; E11.9 Type 2 diabetes mellitus without complications; I11.9 Hypertensive heart disease without heart failure; Z87.442 Personal history of urinary calculi; J44.9 Chronic obstructive pulmonary disease, unspecified; K21.9 Gastro-esophageal reflux disease without esophagitis; M79.7 Fibromyalgia; Z79.899 Other long term (current) drug therapy; Z79.51 Long term (current) use of inhaled steroids; Z79.82 Long term (current) use of aspirin; Z79.84 Long term (current) use of oral hypoglycemic drugs
CPT/HCPCS: 71045; 80048; 85025; 85652; 86140; 87486; 87581; 87633; 87798; 96374; 96375; 99284; J1100; J1885; J2765

== ENCOUNTER 2023-05-31 02:08 | Emergency (ER) | payer MEDICARE, MEDICAID ==
[~2023-05-31 02:08] MED LIST changes: +BENZ200C70 PO
[2023-05-31] MEDS ORDERED: NS 1,000 ML IV ONE (02:45)
[2023-05-31] MEDS ORDERED: ONDANSETRON 4MG 2ML VIAL IV ONE (02:45)
[2023-05-31] MEDS ORDERED: KETOROLAC 30 MG/ML 1ML VIAL IV ONE (02:45)
[2023-05-31] MEDS ORDERED: KETOROLAC 30 MG/ML 1ML VIAL As Ordered ONE (02:46)
[2023-05-31] MEDS ORDERED: ONDANSETRON 4MG 2ML VIAL As Ordered ONE (02:46)
[2023-05-31 02:53] LABS: BASO # 0.1 10^3/uL (0.0-0.2); BASO % 0.7 % (0.0-1.0); EOS # 0.1 10^3/uL (0.0-0.5); EOS % 0.7 % (0.0-3.0); HEMATOCRIT 39.5 % (36.0-47.0); HEMOGLOBIN 13.4 g/dl (12.0-15.5); LYMPH # 1.3 10^3/uL (1.5-5.0); MEAN CORPUSCULAR HGB CONC 33.9 g/dl (32.0-36.5); MEAN CORPUSCULAR VOLUME 88.6 fl (80.0-96.0); MONO # 0.5 10^3/uL (0.0-0.8); MONO % 5.7 % (2.0-8.0); NEUTROPHILS # 6.8 10^3/uL (1.5-8.5); NEUTROPHILS % 77.7 % (36.0-66.0); PLATELET COUNT, AUTOMATED 270 10^3/uL (150-450); RED BLOOD COUNT 4.46 10^6/uL (4.00-5.40); WHITE BLOOD COUNT 8.8 10^3/uL (4.0-10.0)
[2023-05-31 03:19] LABS: BILIRUBIN,DIRECT 0.4 MG/DL (<0.4); CALCIUM LEVEL 9.4 MG/DL (8.3-10.6); CK-MB VALUE MASS 2.9 NG/ML (<3.6); CREATININE FOR GFR 1.06 MG/DL (0.55-1.30); GLOMERULAR FILTRATION RATE 53.8 (>39); MB/CK RELATIVE INDEX 1.35 (< OR =4); POTASSIUM SERUM 3.8 MMOL/L (3.5-5.1); TOTAL PROTEIN 7.1 G/DL (5.7-8.2)
[2023-05-31] MEDS ORDERED: cefTRIAXone SOD 2 GM in D5W MINI-BAG PLUS 50 ML IV ONE (04:50)
[2023-05-31] MEDS ORDERED: ISOVUE-370 76% 100ML VIAL As Ordered ONE (04:58)
[2023-05-31 05:22] LABS: CK-MB VALUE MASS 3.2 NG/ML (<3.6)
[2023-05-31 05:24] LABS: MB/CK RELATIVE INDEX 1.42 (< OR =4)
[2023-05-31] MEDS ORDERED: CEPH500C PO (06:35)
[2023-05-31] MEDS ORDERED: ONDA4TAB6 PO (06:35)
[2023-05-31 06:52] VITALS: BP 133/76; TEMP 97.9; O2SAT 98
== END 2023-05-31 06:55 | disposition home or self-care (01) ==
LOC: EDBD 02:08 → M ED 02:08
DX: N39.0 Urinary tract infection, site not specified (principal); I51.9 Heart disease, unspecified; J44.9 Chronic obstructive pulmonary disease, unspecified; Z79.82 Long term (current) use of aspirin; Z79.899 Other long term (current) drug therapy

== ENCOUNTER 2023-05-31 19:45 | Emergency (ER) | payer MEDICARE, MEDICAID ==
[~2023-05-31] VITALS: Ht 162.6 cm; Wt 113.9 kg
[~2023-05-31 19:45] MED LIST changes: +CEPH500C PO; +ONDA4TAB6 PO
[2023-05-31] MEDS ORDERED: ASPIRIN 81MG CHEW TABLET PO ONE (20:25)
[2023-05-31 22:15] LABS: BASO % 0.5 % (0.0-1.0); EOS # 0.1 10^3/uL (0.0-0.5); EOS % 0.8 % (0.0-3.0); HEMATOCRIT 38.3 % (36.0-47.0); HEMOGLOBIN 12.6 g/dl (12.0-15.5); LYMPH # 1.5 10^3/uL (1.5-5.0); LYMPH % 16.8 % (24.0-44.0); MEAN CORPUSCULAR HEMOGLOBIN 29.4 pg (27.0-33.0); MEAN CORPUSCULAR HGB CONC 32.9 g/dl (32.0-36.5); MEAN CORPUSCULAR VOLUME 89.3 fl (80.0-96.0); MONO # 0.5 10^3/uL (0.0-0.8); MONO % 5.9 % (2.0-8.0); NEUTROPHILS # 6.7 10^3/uL (1.5-8.5); NEUTROPHILS % 75.8 % (36.0-66.0); PLATELET COUNT, AUTOMATED 256 10^3/uL (150-450); RED BLOOD COUNT 4.29 10^6/uL (4.00-5.40); WHITE BLOOD COUNT 8.9 10^3/uL (4.0-10.0)
[2023-05-31 22:29] LABS: LIPASE 47 U/L (12-53)
[2023-05-31 22:43] LABS: ALBUMIN 3.6 G/DL (3.2-5.2); ALKALINE PHOSPHATASE 65 U/L (46-116); ALT/SGPT 16 U/L (7.0-40); AST/SGOT 25 U/L (<34); BILIRUBIN,DIRECT 0.2 MG/DL (<0.4); BILIRUBIN,TOTAL 0.6 MG/DL (0.3-1.2); BLOOD UREA NITROGEN 18 MG/DL (9-23); CALCIUM LEVEL 8.4 MG/DL (8.3-10.6); CARBON DIOXIDE LEVEL 27 MMOL/L (20-31); CHLORIDE LEVEL 105 MMOL/L (98-107); CK-MB VALUE MASS 4.7 NG/ML (<3.6); CPK CREATINE PHOSPHOKINASE 424 U/L (34-145); CREATININE FOR GFR 0.93 MG/DL (0.55-1.30); GLOMERULAR FILTRATION RATE > 60.0 (>39); GLUCOSE, FASTING 119 MG/DL (74-106); SODIUM LEVEL 138 MMOL/L (136-145); TOTAL PROTEIN 6.4 G/DL (5.7-8.2)
[2023-05-31 23:08] VITALS: BP 117/88
[2023-05-31] MEDS ORDERED: LORazepam 2 MG/ML 1ML VIAL IV STA (23:16)
[2023-05-31 23:44] LABS: CK-MB VALUE MASS 4.5 NG/ML (<3.6)
[2023-06-01 01:15] VITALS: TEMP 98.2; O2SAT 96
== END 2023-06-01 01:50 | disposition home or self-care (01) ==
LOC: M ED 19:45
DX: R00.2 Palpitations (principal); F41.0 Panic disorder [episodic paroxysmal anxiety]; J44.9 Chronic obstructive pulmonary disease, unspecified; E11.9 Type 2 diabetes mellitus without complications; N39.0 Urinary tract infection, site not specified; I51.9 Heart disease, unspecified; Z79.52 Long term (current) use of systemic steroids; K21.9 Gastro-esophageal reflux disease without esophagitis; Z79.899 Other long term (current) drug therapy; Z79.51 Long term (current) use of inhaled steroids; Z79.1 Long term (current) use of non-steroidal anti-inflammatories (NSAID); Z79.84 Long term (current) use of oral hypoglycemic drugs
CPT/HCPCS: 71045; 74177; 80048; 80076; 81001; 82550; 82553; 83605; 83690; 84484; 85025; 87086; 87486; 87581; 87633; 87798; 93005; 93041; 94760; 96361; 96365; 96366; 96374; 96375; 99284; 99285; J0696; J1885; J2060; J2405; Q9967

== ENCOUNTER → 2023-08-29 | Outpatient (REF) | payer MEDICARE, MEDICAID ==
[2023-08-29 12:55] LABS: APPEARANCE, URINE HAZY (CLEAR); BACTERIA, URINE AUTO NEGATIVE (NEGATIVE); BILIRUBIN, URINE AUTO NEGATIVE (NEGATIVE); BLOOD, URINE BLOOD NEGATIVE (NEGATIVE); COLOR, URINE YELLOW (YELLOW); GLUCOSE, URINE (UA) AUTO NEGATIVE (NEGATIVE); KETONE, URINE AUTO NEGATIVE (NEGATIVE); LEUKOCYTE ESTERASE, URINE AUTO 1+ (NEGATIVE); MUCUS, URINE SMALL (NEGATIVE); NITRITE, URINE AUTO NEGATIVE (NEGATIVE); PROTEIN, URINE AUTO NEGATIVE (NEGATIVE); RBC, URINE AUTO 0 /HPF (0-3); SPECIFIC GRAVITY URINE AUTO 1.024 (1.002-1.035); SQUAMOUS EPITHELIAL CELL UR AU 2 /HPF (0-6); UROBILINOGEN, URINE AUTO 0.2 mg/dL (0.0-2.0); WBC, URINE AUTO 3 /HPF (0-3)
== END ==
LOC: M LAB REF 11:46
PROVIDERS: ATTEND Physician Assistant
DX: N39.0 Urinary tract infection, site not specified (principal)

== ENCOUNTER → 2023-11-04 | Outpatient (CLI) | payer MEDICARE, MEDICAID ==
[~2023-11-04] MED LIST changes: +ONDA-282 PO; -ONDA4TAB6 PO; -RAMI1CAP24 PO; +RAMI5CAP60 PO; -ROSU10TA6 PO; +ROSU10TA61 PO
== END ==
LOC: M SOG 07:57
PROVIDERS: ATTEND Physician Assistant
DX: Z53.9 Procedure and treatment not carried out, unspecified reason (principal)

== ENCOUNTER → 2023-11-29 | Outpatient (CLI) | payer MEDICARE, MEDICAID | LOC: M SOG 13:23 | PROVIDERS: ATTEND Physician Assistant | DX: M17.11 Unilateral primary osteoarthritis, right knee (principal); M25.561 Pain in right knee ==

== ENCOUNTER → 2023-12-06 | Outpatient (CLI) | payer MEDICARE, MEDICAID ==
[2023-12-06 16:28] LABS: HEMATOCRIT 38.9 % (36.0-47.0); HEMOGLOBIN 12.9 g/dl (12.0-15.5); MEAN CORPUSCULAR HEMOGLOBIN 29.9 pg (27.0-33.0); MEAN CORPUSCULAR HGB CONC 33.2 g/dl (32.0-36.5); MEAN CORPUSCULAR VOLUME 90.3 fl (80.0-96.0); PLATELET COUNT, AUTOMATED 258 10^3/uL (150-450); RED BLOOD COUNT 4.31 10^6/uL (4.00-5.40); WHITE BLOOD COUNT 9.1 10^3/uL (4.0-10.0)
[2023-12-06 16:38] LABS: HEMOGLOBIN A1c 6.6 % (4.0-6.0)
[2023-12-06 16:55] LABS: ALBUMIN 3.7 G/DL (3.2-5.2); BILIRUBIN,TOTAL 0.5 MG/DL (0.3-1.2); CALCIUM LEVEL 9.2 MG/DL (8.3-10.6); GLOMERULAR FILTRATION RATE 57.5 (>39); POTASSIUM SERUM 4.8 MMOL/L (3.5-5.1); TOTAL PROTEIN 6.8 G/DL (5.7-8.2)
== END ==
LOC: M LAB 15:33
PROVIDERS: ATTEND Internal Medicine
DX: E11.9 Type 2 diabetes mellitus without complications (principal); E03.9 Hypothyroidism, unspecified; I10 Essential (primary) hypertension

== ENCOUNTER → 2024-05-14 | Outpatient (CLI) | payer MEDICARE, MEDICAID | LOC: M RAD 15:31 | PROVIDERS: ATTEND Physician Assistant | DX: M17.11 Unilateral primary osteoarthritis, right knee (principal) ==

== ENCOUNTER → 2024-05-29 | Outpatient (CLI) | payer MEDICARE, MEDICAID | LOC: M SOG 08:00 | PROVIDERS: ATTEND Orthopaedic Surgery | DX: M17.0 Bilateral primary osteoarthritis of knee (principal); Z96.651 Presence of right artificial knee joint ==

== ENCOUNTER → 2024-08-27 | Outpatient (REF) | payer MEDICARE ==
[2024-08-27 21:30] LABS: APPEARANCE, URINE CLEAR (CLEAR); BACTERIA, URINE AUTO NEGATIVE (NEGATIVE); BILIRUBIN, URINE AUTO NEGATIVE (NEGATIVE); BLOOD, URINE BLOOD NEGATIVE (NEGATIVE); COLOR, URINE YELLOW (YELLOW); GLUCOSE, URINE (UA) AUTO NEGATIVE (NEGATIVE); KETONE, URINE AUTO NEGATIVE (NEGATIVE); LEUKOCYTE ESTERASE, URINE AUTO 3+ (NEGATIVE); MUCUS, URINE SMALL (NEGATIVE); NITRITE, URINE AUTO NEGATIVE (NEGATIVE); PROTEIN, URINE AUTO NEGATIVE (NEGATIVE); RBC, URINE AUTO 0 /HPF (0-3); SPECIFIC GRAVITY URINE AUTO 1.014 (1.002-1.035); SQUAMOUS EPITHELIAL CELL UR AU 1 /HPF (0-6); WBC, URINE AUTO 5 /HPF (0-3)
== END ==
LOC: M LAB REF 21:00
PROVIDERS: ATTEND Physician Assistant
DX: N39.0 Urinary tract infection, site not specified (principal)

== ENCOUNTER → 2025-05-09 | Outpatient (CLI) | payer MEDICARE ==
[~2025-05-09] MED LIST changes: -ROSU10TA61 PO; +ROSU10TA90 PO
== END ==
LOC: M RAD 13:59
PROVIDERS: ATTEND Physician Assistant Medical
DX: R05.9 Cough, unspecified (principal); R06.02 Shortness of breath